=== PATIENT | female | born 1935 | race Caucasian/White ===

== ENCOUNTER 2018-11-17 12:22 | Inpatient (IN) | payer MEDICARE, MEDICAID ==
[~2018-11-17] VITALS: Ht 162.6 cm; Wt 85.0 kg
[2018-11-17 13:17] LABS: BASOPHILS # (AUTO) 0.1 X10'3 (0-0.2); BASOPHILS % (AUTO) 0.4 % (0-1); EOSINOPHILS % (AUTO) 0.1 % (0-6); HEMATOCRIT 35.5 % (35.0-45.0); HEMOGLOBIN 11.6 g/dl (12.0-16.0); LYMPHOCYTES # (AUTO) 1.3 X10'3 (1.1-4.8); LYMPHOCYTES % (AUTO) 5.6 % (21-51); MEAN CORPUSCULAR HEMOGLOBIN 26.7 PG (27.0-31.0); MEAN CORPUSCULAR HGB CONC 32.8 g/dL (33.0-36.5); MEAN CORPUSCULAR VOLUME 81.4 FL (78-98); MEAN PLATELET VOLUME 6.5 FL (7.4-10.4); MONOCYTES # (AUTO) 1.2 X10'3 (0-0.9); MONOCYTES % (AUTO) 5.1 % (2-12); NEUTROPHILS # (AUTO) 20.9 X10'3 (1.8-7.7); NEUTROPHILS % (AUTO) 88.8 % (42-75); PLATELET COUNT 445 X10'3 (140-440); RED BLOOD COUNT 4.36 X10'6 (4.20-5.60); RED CELL DISTRIBUTION WIDTH 15.6 % (11.5-14.5); WHITE BLOOD COUNT 23.5 X10'3 (4.5-11.0)
[2018-11-17] MEDS ORDERED: levoFLOXACIN-Levaquin 500mg/D5 100 ML IV ONE (13:30)
[2018-11-17 13:37] LABS: ALANINE AMINOTRANSFERASE 20 U/L (12-78); ALBUMIN 2.7 G/DL (3.4-5.0); ALBUMIN/GLOBULIN RATIO 0.7 (1.1-1.5); ALKALINE PHOSPHATASE 69 IU/L (46-116); ANION GAP 5 (8-16); ASPARTATE AMINO TRANSFERASE 10 U/L (10-37); BILIRUBIN,TOTAL 0.5 MG/DL (0.1-1.0); BLOOD UREA NITROGEN 12 MG/DL (7-18); CALCIUM 9.3 MG/DL (8.5-10.1); CHLORIDE 96 MMOL/L (99-107); GLUCOSE 259 MG/DL (70-104); POTASSIUM 4.1 MMOL/L (3.5-5.1); SODIUM 133 MMOL/L (135-145); TOTAL CARBON DIOXIDE 32.2 MMOL/L (24-32); TOTAL PROTEIN 6.8 G/DL (6.4-8.2); eGFR > 90 ML/MIN
[2018-11-17 13:39] LABS: INR 1.1 INR; PARTIAL THROMBOPLASTIN TIME 36 SECONDS (22-32)
[2018-11-17] MEDS ORDERED: HYDR-3972 PO (14:07)
[2018-11-17] MEDS ORDERED: ALBU2.5V10 NEB (14:07)
[2018-11-17] MEDS ORDERED: METF-950 PO (14:07)
[2018-11-17] MEDS ORDERED: RIVA20TA PO (14:07)
[2018-11-17] MEDS ORDERED: SPIR50TA5 PO (14:07)
[2018-11-17] MEDS ORDERED: PRE5T PO (14:07)
[2018-11-17] MEDS ORDERED: CARV6.253 PO (14:07)
[2018-11-17] MEDS ORDERED: FURO20TA4 PO (14:07)
[2018-11-17] MEDS ORDERED: FURO40TA4 PO (14:07)
[2018-11-17] MEDS ORDERED: ARFO15VI NEB (14:07)
[2018-11-17 14:31] LABS: TOTAL CELLS COUNTED 100
[2018-11-17] MEDS ORDERED: magnesium 4gm in 100ml NS 100 ML IV PRN (14:55)
[2018-11-17] MEDS ORDERED: magnesium Cl slow-release 64mg tablet PO PRN (14:55)
[2018-11-17] MEDS ORDERED: ipratropium/albuterol 3ml nebule NEB PRN (14:55)
[2018-11-17] MEDS ORDERED: magnesium 2GM in 50ml NS 50 ML IV PRN (14:55)
[2018-11-17] MEDS ORDERED: potassium Cl 40MEQ/NS 500ml 500 ML IV PRN ×2 (14:55)
[2018-11-17] MEDS ORDERED: ondansetron/PF 4mg/2ml inj IV PRN (14:55)
[2018-11-17] MEDS ORDERED: acetaminophen 325mg tablet PO PRN (14:55)
[2018-11-17] MEDS ORDERED: potassium Cl 20 mEq SR tablet PO PRN ×2 (14:55)
[2018-11-17 16:05] LABS: PLATELET ESTIMATE INCREASED
--- NOTE | 2018-11-17 18:35 | NUR ---
report given to the night MILADY PICHARDO
[2018-11-17 19:00] VITALS: BP 111/54
[2018-11-17] MEDS: vancomycin inj 1,250 MG in NS 250ml IV soln IV SCH (19:06)
[2018-11-17] MEDS ORDERED: heparin, porcine 5000 units/ml vial SQ SCH (20:00)
[2018-11-17] MEDS ORDERED: vancomycin/NS 1 GM ADD-VANTAGE 250 ML IV SCH (20:00)
[2018-11-17] MEDS: carvedilol 6.25mg tablet PO SCH (20:06)
[2018-11-17] MEDS: rivaroxaban 20mg tablet PO SCH (20:27)
[2018-11-17] MEDS: ipratropium/albuterol 3ml nebule NEB SCH (21:19)
[2018-11-17 23:00] VITALS: BP 114/59
[2018-11-17 23:41] LABS: HEMOGLOBIN A1C 7.4 % (4.5-6.2)
[2018-11-18 03:00] VITALS: BP 110/63
[2018-11-18] MEDS: ipratropium/albuterol 3ml nebule NEB SCH ×4 (03:07→20:00)
[2018-11-18] MEDS: vancomycin inj 1,250 MG in NS 250ml IV soln IV SCH ×2 (04:33→16:40)
[2018-11-18 05:40] LABS: BASOPHILS % (AUTO) 0.1 % (0-1); EOSINOPHILS % (AUTO) 0.1 % (0-6); HEMATOCRIT 33.4 % (35.0-45.0); HEMOGLOBIN 10.8 g/dl (12.0-16.0); LYMPHOCYTES # (AUTO) 2.4 X10'3 (1.1-4.8); LYMPHOCYTES % (AUTO) 11.3 % (21-51); MEAN CORPUSCULAR HEMOGLOBIN 26.7 PG (27.0-31.0); MEAN CORPUSCULAR HGB CONC 32.4 g/dL (33.0-36.5); MEAN CORPUSCULAR VOLUME 82.5 FL (78-98); MEAN PLATELET VOLUME 6.7 FL (7.4-10.4); MONOCYTES # (AUTO) 2.3 X10'3 (0-0.9); MONOCYTES % (AUTO) 10.7 % (2-12); NEUTROPHILS # (AUTO) 16.3 X10'3 (1.8-7.7); NEUTROPHILS % (AUTO) 77.8 % (42-75); PLATELET COUNT 449 X10'3 (140-440); RED BLOOD COUNT 4.05 X10'6 (4.20-5.60); RED CELL DISTRIBUTION WIDTH 15.6 % (11.5-14.5)
[2018-11-18 05:54] LABS: CHLORIDE 100 MMOL/L (99-107); GLUCOSE 219 MG/DL (70-104); POTASSIUM 3.8 MMOL/L (3.5-5.1); SODIUM 136 MMOL/L (135-145); TOTAL CARBON DIOXIDE 33.6 MMOL/L (24-32)
[2018-11-18 05:55] LABS: ALBUMIN 2.3 G/DL (3.4-5.0); ANION GAP 2 (8-16); BLOOD UREA NITROGEN 11 MG/DL (7-18); BUN/CREATININE RATIO 18.3 (6.6-38.0); CALCIUM 9.1 MG/DL (8.5-10.1); MAGNESIUM 1.6 MG/DL (1.5-2.4); eGFR > 90 ML/MIN
[2018-11-18 06:00] VITALS: BP 122/49
--- NOTE | 2018-11-18 06:16 | NUR ---
Problems reprioritized. Patient report given, questions answered & plan of care reviewed with AM nurse. Addendum: 11/18/18 at 0617 by Blank Hart RN Amended: Links added.
[2018-11-18 07:02] LABS: PLATELET ESTIMATE INCREASED; TOTAL CELLS COUNTED 100
[2018-11-18 07:03] LABS: TOXIC GRANULATION 1+
[2018-11-18] MEDS: spironolactone 50 MG tablet PO SCH (07:58)
[2018-11-18] MEDS: methylPREDNISolone sod succ/PF 40mg inj. IV SCH (07:59)
[2018-11-18] MEDS: pantoprazole 40mg Tablet.DR PO SCH (07:59)
[2018-11-18] MEDS: K and/or MAG REPLACEMENT MC SCH (08:00)
[2018-11-18] MEDS: furosemide 40mg tablet PO SCH (08:01)
[2018-11-18] MEDS: carvedilol 6.25mg tablet PO SCH ×2 (08:01→17:26)
--- NOTE | 2018-11-18 09:41 | NUR ---
PAGER ID: [phone] MESSAGE: [id number] Cyndee Kang Pt has history of diabetes, has met protocol, but hyper/hypoglycemic protocol not yet ordered. Would you like it ordered? Thank you, Sharron #[phone]
[2018-11-18 11:00] VITALS: BP 112/59
[2018-11-18] MEDS ORDERED: MESSAGE TO PHARMACY PO ONE (11:05)
[2018-11-18] MEDS ORDERED: dextrose 50%-water 50ml dispensing syringe IV PRN ×2 (11:05)
[2018-11-18] MEDS ORDERED: glucagon, human recombinant 1mg kit SUBCUT PRN (11:05)
[2018-11-18] MEDS ORDERED: dextrose ORAL solution 15 GM/59 ML bottle PO PRN ×2 (11:05)
[2018-11-18] MEDS: levoFLOXACIN 750MG TABLET PO SCH (11:27)
[2018-11-18] MEDS: normal saline 1000ml 1,000 ML IV SCH (11:27)
[2018-11-18] MEDS: insulin Lispro (HumaLOG) vial - multi-dose SQ SCH ×3 (13:20→21:40)
--- NOTE | 2018-11-18 13:43 | NUR ---
DM consult, A1c 7.4, patient and her daughter met at bedside and given written DM education handout with verbal review and referral to wednesday outpatient DM education class. Daughter helps care for patient, helps prepare meals and ensuring medication is taken at home. Obtained food preferences including chopping all foods d/t some chewing difficulty with dentures, will add extra gravies to keep moist. Other preferences taken include Surinamese Yogurt with breakfast and Lunch as she eats this at home. Will continue to follow. Addendum: 11/18/18 at [address] Amended: Links added.
[2018-11-18 15:00] VITALS: BP 115/49
--- NOTE | 2018-11-18 17:04 | NUR ---
PAGER ID: [phone] MESSAGE: [id number] Taylor Austin Pt tele order is going to in 24 hours, would you like me to renew it? Thank you, Sharron #[phone]
--- NOTE | 2018-11-18 17:24 | NUR ---
Patient in room PCU 3014. I have received report from MILADY Mcdermott and had the opportunity to ask questions and assume patient care.
[2018-11-18] MEDS: rivaroxaban 20mg tablet PO SCH (17:26)
--- NOTE | 2018-11-18 17:35 | NUR ---
Problems reprioritized. Patient report given, questions answered & plan of care reviewed with Britany HENNING.
[2018-11-18 17:49] LABS: CLARITY,URINE CLEAR (Clear); COLOR,URINE YELLOW (Yellow); GLUCOSE, URINE 250 mg/dl (Neg); KETONES,URINE TRACE mg/dl (Neg); LEUKOCYTE ESTERASE ,URINE NEGATIVE (Neg); NITRITES, URINE NEGATIVE (Neg); OCCULT BLOOD,URINE SMALL (Neg); PROTEIN,URINE NEGATIVE (Neg); UROBILINOGEN,URINE 0.2 E.U/dL (0.2-1.0)
[2018-11-18 17:54] LABS: UA COLLECTION TYPE CLN CATCH MIDSTREAM
[2018-11-18 17:55] LABS: BACTERIA,URINE NONE SEEN /HPF (Neg); MUCUS STRANDS FEW /LPF (Neg); RBC,URINE 0-2 /HPF (0-2); SQUAMOUS EPITHELIAL CELL,UR FEW /LPF (FEW); WBC,URINE NONE SEEN /HPF (0-4)
[2018-11-18 18:00] VITALS: BP 128/52
[2018-11-18] MEDS: lactobacillus rhamnosus 10,000 MMU CELLS/CAPSULE PO SCH (19:17)
[2018-11-18] MEDS: insulin glargine (Lantus) pen - multi-dose SQ SCH (21:39)
[2018-11-18 23:00] VITALS: BP 118/70
[2018-11-19] VITALS (7 sets, daily range): BP systolic 115–136; BP diastolic 48–77
[2018-11-19] MEDS: normal saline 1000ml 1,000 ML IV SCH ×2 (00:25→07:34)
[2018-11-19] MEDS: ipratropium/albuterol 3ml nebule NEB SCH ×4 (02:39→20:05)
[2018-11-19] MEDS ORDERED: VANCOMYCIN LEVEL IV ONE (03:30)
[2018-11-19 04:23] LABS: BASOPHILS % (AUTO) 0.2 % (0-1); EOSINOPHILS % (AUTO) 0 % (0-6); HEMATOCRIT 29.4 % (35.0-45.0); HEMOGLOBIN 9.6 g/dl (12.0-16.0); LYMPHOCYTES # (AUTO) 2.1 X10'3 (1.1-4.8); LYMPHOCYTES % (AUTO) 11.9 % (21-51); MEAN CORPUSCULAR HGB CONC 32.7 g/dL (33.0-36.5); MEAN CORPUSCULAR VOLUME 82.8 FL (78-98); MEAN PLATELET VOLUME 6.7 FL (7.4-10.4); MONOCYTES # (AUTO) 1.6 X10'3 (0-0.9); MONOCYTES % (AUTO) 9.5 % (2-12); NEUTROPHILS # (AUTO) 13.6 X10'3 (1.8-7.7); NEUTROPHILS % (AUTO) 78.4 % (42-75); PLATELET COUNT 453 X10'3 (140-440); RED BLOOD COUNT 3.55 X10'6 (4.20-5.60); RED CELL DISTRIBUTION WIDTH 15.9 % (11.5-14.5); WHITE BLOOD COUNT 17.3 X10'3 (4.5-11.0)
[2018-11-19] MEDS: vancomycin inj 1,250 MG in NS 250ml IV soln IV SCH (04:25)
[2018-11-19 04:37] LABS: ALBUMIN 2.1 G/DL (3.4-5.0); ANION GAP 6 (8-16); BLOOD UREA NITROGEN 8 MG/DL (7-18); BUN/CREATININE RATIO 14.3 (6.6-38.0); CALCIUM 8.4 MG/DL (8.5-10.1); CHLORIDE 104 MMOL/L (99-107); CREATININE 0.56 MG/DL (0.40-0.90); GLUCOSE 175 MG/DL (70-104); MAGNESIUM 1.8 MG/DL (1.5-2.4); POTASSIUM 3.6 MMOL/L (3.5-5.1); SODIUM 141 MMOL/L (135-145); TOTAL CARBON DIOXIDE 31.2 MMOL/L (24-32); VANCOMYCIN,TROUGH 11.2 UG/ML (6.0-14.0); eGFR > 90 ML/MIN
[2018-11-19] MEDS: HYDROcodone/acetaminophen 10/325mg tab PO PRN (05:05)
--- NOTE | 2018-11-19 06:11 | NUR ---
Problems reprioritized. Patient report given, questions answered & plan of care reviewed with MILADY Mcdermott.
--- NOTE | 2018-11-19 06:42 | NUR ---
Patient in room PCU 3014. I have received report from Britany HENNING and had the opportunity to ask questions and assume patient care.
[2018-11-19] MEDS: spironolactone 50 MG tablet PO SCH (07:33)
[2018-11-19 07:34] LABS: TOTAL CELLS COUNTED 100
[2018-11-19] MEDS: methylPREDNISolone sod succ/PF 40mg inj. IV SCH (07:34)
[2018-11-19] MEDS: carvedilol 6.25mg tablet PO SCH ×2 (07:34→17:19)
[2018-11-19] MEDS: lactobacillus rhamnosus 10,000 MMU CELLS/CAPSULE PO SCH ×2 (07:34→20:32)
[2018-11-19] MEDS: furosemide 40mg tablet PO SCH (07:34)
[2018-11-19] MEDS: pantoprazole 40mg Tablet.DR PO SCH (07:34)
[2018-11-19 07:35] LABS: PLATELET ESTIMATE INCREASED
[2018-11-19] MEDS: K and/or MAG REPLACEMENT MC SCH (08:00)
[2018-11-19] MEDS: levoFLOXACIN 750MG TABLET PO SCH (11:03)
[2018-11-19] MEDS: insulin Lispro (HumaLOG) vial - multi-dose SQ SCH ×2 (13:24→19:11)
--- NOTE | 2018-11-19 15:59 | NUR ---
PAGER ID: [phone] MESSAGE: [id number] Cyndee Kang Would you like to continue NS at 75 mL/hr,? BP is 119/54, urine output is good. Bilateral lower extremity 2+ pitting edema. Thank you # [phone]
[2018-11-19] MEDS: rivaroxaban 20mg tablet PO SCH (17:19)
--- NOTE | 2018-11-19 17:51 | NUR ---
Orientee documentation: I have reviewed and agree with interventions, assessments performed and documented by Chely HENNING . Orientee Medication Administration: For this medication-pass time frame, medications were reviewed, dispensed, administered and documented per hospital policy by Chely HENNING .
--- NOTE | 2018-11-19 18:17 | NUR ---
Problems reprioritized. Patient report given, questions answered & plan of care reviewed with MILADY Fatima.
--- NOTE | 2018-11-19 18:30 | NUR ---
PATIENT REPORT RECEIVED FROM CONSTANTIN HENNING.
[2018-11-19] MEDS: insulin glargine (Lantus) pen - multi-dose SQ SCH (21:29)
[2018-11-20 02:00] VITALS: BP 127/64
[2018-11-20] MEDS: ipratropium/albuterol 3ml nebule NEB SCH ×4 (03:01→20:46)
[2018-11-20 05:41] LABS: BASOPHILS % (AUTO) 0.1 % (0-1); EOSINOPHILS % (AUTO) 0.1 % (0-6); HEMATOCRIT 34.2 % (35.0-45.0); LYMPHOCYTES # (AUTO) 2.9 X10'3 (1.1-4.8); LYMPHOCYTES % (AUTO) 15.3 % (21-51); MEAN CORPUSCULAR HEMOGLOBIN 26.8 PG (27.0-31.0); MEAN CORPUSCULAR HGB CONC 32.2 g/dL (33.0-36.5); MEAN CORPUSCULAR VOLUME 83.2 FL (78-98); MEAN PLATELET VOLUME 6.7 FL (7.4-10.4); MONOCYTES # (AUTO) 1.6 X10'3 (0-0.9); MONOCYTES % (AUTO) 8.8 % (2-12); NEUTROPHILS # (AUTO) 14.2 X10'3 (1.8-7.7); NEUTROPHILS % (AUTO) 75.7 % (42-75); PLATELET COUNT 535 X10'3 (140-440); RED BLOOD COUNT 4.11 X10'6 (4.20-5.60); RED CELL DISTRIBUTION WIDTH 16.2 % (11.5-14.5); WHITE BLOOD COUNT 18.7 X10'3 (4.5-11.0)
[2018-11-20 06:00] VITALS: BP 130/72
[2018-11-20 06:06] LABS: ALBUMIN 2.5 G/DL (3.4-5.0); ANION GAP 5 (8-16); BLOOD UREA NITROGEN 11 MG/DL (7-18); CALCIUM 9.3 MG/DL (8.5-10.1); CHLORIDE 102 MMOL/L (99-107); CREATININE 0.55 MG/DL (0.40-0.90); GLUCOSE 127 MG/DL (70-104); MAGNESIUM 1.9 MG/DL (1.5-2.4); POTASSIUM 3.8 MMOL/L (3.5-5.1); SODIUM 139 MMOL/L (135-145); TOTAL CARBON DIOXIDE 32.4 MMOL/L (24-32); eGFR > 90 ML/MIN
[2018-11-20 06:07] LABS: FERRITIN 345 NG/ML (8-252)
--- NOTE | 2018-11-20 06:09 | NUR ---
PATIENT REPORT GIVEN TO KIRK HENNING.
[2018-11-20 06:25] LABS: % IRON SATURATION 17 % (11-46); IRON 37 UG/DL (49-151); TOTAL IRON BINDING CAPACITY 222 UG/DL (259-388)
--- NOTE | 2018-11-20 06:30 | NUR ---
Patient in room PCU 3014. I have received report from Trena HENNING and had the opportunity to ask questions and assume patient care.
[2018-11-20] MEDS: pantoprazole 40mg Tablet.DR PO SCH (07:23)
[2018-11-20] MEDS: methylPREDNISolone sod succ/PF 40mg inj. IV SCH (07:23)
[2018-11-20] MEDS: spironolactone 50 MG tablet PO SCH (07:23)
[2018-11-20] MEDS: carvedilol 6.25mg tablet PO SCH ×2 (07:23→16:53)
[2018-11-20] MEDS: lactobacillus rhamnosus 10,000 MMU CELLS/CAPSULE PO SCH ×2 (07:23→22:11)
[2018-11-20] MEDS: furosemide 40mg tablet PO SCH (07:23)
[2018-11-20] MEDS: K and/or MAG REPLACEMENT MC SCH (07:25)
[2018-11-20] MEDS: insulin Lispro (HumaLOG) vial - multi-dose SQ SCH ×3 (08:29→19:27)
[2018-11-20] MEDS: levoFLOXACIN 750MG TABLET PO SCH (10:47)
[2018-11-20 11:00] VITALS: BP 117/50
[2018-11-20] MEDS: HYDROcodone/acetaminophen 10/325mg tab PO PRN (13:01)
--- NOTE | 2018-11-20 13:14 | NUR ---
Medicated with [place] for back pain.
[2018-11-20 15:00] VITALS: BP 119/72
[2018-11-20] MEDS: rivaroxaban 20mg tablet PO SCH (16:53)
--- NOTE | 2018-11-20 18:12 | NUR ---
Problems reprioritized. Patient report given, questions answered & plan of care reviewed with Nhi HENNING. Addendum: 11/20/18 at 1813 by Crystal Aguilera RN Amended: Links added.
[2018-11-20 19:00] VITALS: BP 120/54
--- NOTE | 2018-11-20 19:00 | NUR ---
pt sitting in w/c; edema to lower legs noted; pt reports she sleeps in chair at home; pt declines the use of a recliner chair to keep legs elevated or to get into bed Addendum: 11/21/18 at 0026 by Sheba Powell RN Amended: Links added.
[2018-11-20 22:00] VITALS: BP 120/56
[2018-11-20] MEDS: insulin glargine (Lantus) pen - multi-dose SQ SCH (22:20)
[2018-11-21 02:00] VITALS: BP 128/55
[2018-11-21] MEDS: ipratropium/albuterol 3ml nebule NEB SCH ×4 (02:00→20:07)
[2018-11-21] MEDS: normal saline 1000ml 1,000 ML IV SCH (02:08)
[2018-11-21] MEDS ORDERED: VANCOMYCIN LEVEL IV NR ×2 (03:30→15:30)
--- NOTE | 2018-11-21 04:35 | NUR ---
attempts made by two nurses (x4 sticks) to do vanco lab; instructed by Ross, pharmacist, to hang Vanco IV if lab not able to do the lab draw by 0430 & the plan will be to retime the vanco T...Ross notified
[2018-11-21 06:04] LABS: BASOPHILS % (AUTO) 0.1 % (0-1); EOSINOPHILS % (AUTO) 0.2 % (0-6); HEMOGLOBIN 11.1 g/dl (12.0-16.0); LYMPHOCYTES % (AUTO) 13.7 % (21-51); MEAN CORPUSCULAR HGB CONC 32.7 g/dL (33.0-36.5); MEAN CORPUSCULAR VOLUME 82.6 FL (78-98); MEAN PLATELET VOLUME 6.5 FL (7.4-10.4); MONOCYTES # (AUTO) 2.1 X10'3 (0-0.9); MONOCYTES % (AUTO) 9.7 % (2-12); NEUTROPHILS # (AUTO) 16.5 X10'3 (1.8-7.7); NEUTROPHILS % (AUTO) 76.3 % (42-75); PLATELET COUNT 537 X10'3 (140-440); RED BLOOD COUNT 4.11 X10'6 (4.20-5.60); WHITE BLOOD COUNT 21.7 X10'3 (4.5-11.0)
[2018-11-21 06:30] VITALS: BP 125/62
--- NOTE | 2018-11-21 06:30 | NUR ---
report given to MILADY Luna
[2018-11-21 06:34] LABS: ALBUMIN 2.5 G/DL (3.4-5.0); ANION GAP 5 (8-16); BLOOD UREA NITROGEN 13 MG/DL (7-18); BUN/CREATININE RATIO 21.7 (6.6-38.0); CALCIUM 9.4 MG/DL (8.5-10.1); CHLORIDE 100 MMOL/L (99-107); GLUCOSE 96 MG/DL (70-104); POTASSIUM 3.7 MMOL/L (3.5-5.1); SODIUM 139 MMOL/L (135-145); TOTAL CARBON DIOXIDE 34.1 MMOL/L (24-32); eGFR > 90 ML/MIN
--- NOTE | 2018-11-21 06:39 | NUR ---
Patient in room PCU 3014. I have received report from Nhi RN and had the opportunity to ask questions and assume patient care.
[2018-11-21] MEDS: methylPREDNISolone sod succ/PF 40mg inj. IV SCH (07:30)
[2018-11-21] MEDS: furosemide 40mg tablet PO SCH (07:30)
[2018-11-21] MEDS: pantoprazole 40mg Tablet.DR PO SCH (07:31)
[2018-11-21] MEDS: lactobacillus rhamnosus 10,000 MMU CELLS/CAPSULE PO SCH ×2 (07:31→21:18)
[2018-11-21] MEDS: carvedilol 6.25mg tablet PO SCH ×2 (07:31→17:29)
[2018-11-21] MEDS: spironolactone 50 MG tablet PO SCH (07:31)
[2018-11-21 07:46] LABS: TOTAL CELLS COUNTED 100
[2018-11-21 07:48] LABS: ANISOCYTOSIS 1+; PLATELET ESTIMATE INCREASED
[2018-11-21] MEDS: K and/or MAG REPLACEMENT MC SCH (08:00)
[2018-11-21] MEDS: piperacillin/tazo 3.375gm/50ml 50 ML IV SCH ×2 (09:36→23:26)
[2018-11-21 11:00] VITALS: BP 116/51
[2018-11-21] MEDS: levoFLOXACIN 750MG TABLET PO SCH (11:56)
[2018-11-21] MEDS: insulin Lispro (HumaLOG) vial - multi-dose SQ SCH ×2 (13:21→18:58)
[2018-11-21] MEDS: HYDROcodone/acetaminophen 10/325mg tab PO PRN (13:23)
[2018-11-21 15:00] VITALS: BP 114/52
--- NOTE | 2018-11-21 15:50 | NUR ---
Paged Dr Matos regarding critical vanco trough PAGER ID: [phone] MESSAGE: Cheryl [phone]. RE Agustin Kang [id number]. Lab called to report critical vanco level of 22.3.
[2018-11-21] MEDS: rivaroxaban 20mg tablet PO SCH (17:29)
[2018-11-21] MEDS: vancomycin inj 1,250 MG in NS 250ml IV soln IV SCH (17:30)
[2018-11-21 18:00] VITALS: BP 114/58
--- NOTE | 2018-11-21 18:25 | NUR ---
Problems reprioritized. Patient report given, questions answered & plan of care reviewed with Tracy HENNING.
--- NOTE | 2018-11-21 18:31 | NUR ---
Patient in room PCU 3014. I have received report from Cheryl and had the opportunity to ask questions and assume patient care.
[2018-11-21 22:00] VITALS: BP 126/68
[2018-11-21] MEDS: insulin glargine (Lantus) pen - multi-dose SQ SCH (22:14)
--- NOTE | 2018-11-21 22:46 | NUR ---
IV in left forearm was leaking. DC'd 11/21. inserted 22 g right wrist 11/21
[2018-11-22 02:00] VITALS: BP 129/43
[2018-11-22] MEDS: ipratropium/albuterol 3ml nebule NEB SCH ×4 (03:30→20:11)
[2018-11-22] MEDS: vancomycin inj 1,250 MG in NS 250ml IV soln IV SCH ×2 (04:26→19:04)
[2018-11-22 05:57] LABS: BASOPHILS % (AUTO) 0.1 % (0-1); EOSINOPHILS % (AUTO) 0.2 % (0-6); HEMATOCRIT 35.9 % (35.0-45.0); HEMOGLOBIN 11.5 g/dl (12.0-16.0); LYMPHOCYTES # (AUTO) 3.1 X10'3 (1.1-4.8); LYMPHOCYTES % (AUTO) 13.7 % (21-51); MEAN CORPUSCULAR HEMOGLOBIN 26.6 PG (27.0-31.0); MEAN CORPUSCULAR HGB CONC 31.9 g/dL (33.0-36.5); MEAN CORPUSCULAR VOLUME 83.1 FL (78-98); MEAN PLATELET VOLUME 6.6 FL (7.4-10.4); MONOCYTES # (AUTO) 2.1 X10'3 (0-0.9); MONOCYTES % (AUTO) 9.3 % (2-12); NEUTROPHILS # (AUTO) 17.4 X10'3 (1.8-7.7); NEUTROPHILS % (AUTO) 76.7 % (42-75); PLATELET COUNT 531 X10'3 (140-440); RED BLOOD COUNT 4.31 X10'6 (4.20-5.60); RED CELL DISTRIBUTION WIDTH 16.1 % (11.5-14.5); WHITE BLOOD COUNT 22.7 X10'3 (4.5-11.0)
[2018-11-22 06:05] LABS: ALBUMIN 2.6 G/DL (3.4-5.0); ANION GAP 4 (8-16); BLOOD UREA NITROGEN 14 MG/DL (7-18); BUN/CREATININE RATIO 19.7 (6.6-38.0); CALCIUM 9.5 MG/DL (8.5-10.1); CHLORIDE 99 MMOL/L (99-107); CREATININE 0.71 MG/DL (0.40-0.90); GLUCOSE 108 MG/DL (70-104); POTASSIUM 3.9 MMOL/L (3.5-5.1); SODIUM 139 MMOL/L (135-145); TOTAL CARBON DIOXIDE 36.3 MMOL/L (24-32); eGFR 78 ML/MIN
--- NOTE | 2018-11-22 06:14 | NUR ---
Problems reprioritized. Patient report given, questions answered & plan of care reviewed with Cheryl.
--- NOTE | 2018-11-22 06:24 | NUR ---
Patient in room PCU 3014. I have received report from Tracy HENNING and had the opportunity to ask questions and assume patient care.
[2018-11-22 06:30] VITALS: BP 116/60
[2018-11-22] MEDS: carvedilol 6.25mg tablet PO SCH ×2 (07:18→16:34)
[2018-11-22] MEDS: furosemide 40mg tablet PO SCH (07:18)
[2018-11-22] MEDS: pantoprazole 40mg Tablet.DR PO SCH (07:18)
[2018-11-22] MEDS: methylPREDNISolone sod succ/PF 40mg inj. IV SCH (07:18)
[2018-11-22] MEDS: spironolactone 50 MG tablet PO SCH (07:18)
[2018-11-22] MEDS: lactobacillus rhamnosus 10,000 MMU CELLS/CAPSULE PO SCH ×2 (07:18→19:04)
[2018-11-22] MEDS: piperacillin/tazo 3.375gm/50ml 50 ML IV SCH ×3 (07:19→23:41)
[2018-11-22 07:27] LABS: ANISOCYTOSIS 1+; PLATELET ESTIMATE INCREASED; TOTAL CELLS COUNTED 100
[2018-11-22] MEDS: K and/or MAG REPLACEMENT MC SCH (07:30)
[2018-11-22] MEDS: levoFLOXACIN 750MG TABLET PO SCH (10:46)
[2018-11-22 11:00] VITALS: BP 115/71
[2018-11-22] MEDS: insulin Lispro (HumaLOG) vial - multi-dose SQ SCH ×2 (13:40→19:01)
[2018-11-22 15:00] VITALS: BP 132/57
[2018-11-22] MEDS: rivaroxaban 20mg tablet PO SCH (16:35)
[2018-11-22 18:00] VITALS: BP 123/56
--- NOTE | 2018-11-22 18:18 | NUR ---
Initial: Pt admit w/ RLL PNA possible aspiration per MD note. AOx1 w/ possible dementia per MD note. LBM 11/20. Pt PO 75-100% meals meeting needs. Will continue to monitor. Rec: 1. continue carb controlled/heart healthy meals 2. wt per rx Addendum: 11/22/18 at [address] Amended: Links added.
--- NOTE | 2018-11-22 18:29 | NUR ---
Problems reprioritized. Patient report given with Vale HENNING questions answered & plan of care reviewed with .
[2018-11-22] MEDS: HYDROcodone/acetaminophen 10/325mg tab PO PRN (19:47)
[2018-11-22] MEDS: insulin glargine (Lantus) pen - multi-dose SQ SCH (21:22)
[2018-11-22 23:00] VITALS: BP 149/68
[2018-11-23 03:00] VITALS: BP 134/60
[2018-11-23] MEDS: ipratropium/albuterol 3ml nebule NEB SCH ×3 (03:21→20:28)
[2018-11-23] MEDS: normal saline 1000ml 1,000 ML IV SCH (03:22)
[2018-11-23] MEDS ORDERED: VANCOMYCIN LEVEL IV NR (04:30)
[2018-11-23] MEDS: vancomycin inj 1,250 MG in NS 250ml IV soln IV SCH (05:13)
[2018-11-23 06:29] LABS: MAGNESIUM 2.1 MG/DL (1.5-2.4)
[2018-11-23 06:31] LABS: VANCOMYCIN,TROUGH 22.8 UG/ML (6.0-14.0)
[2018-11-23 07:02] VITALS: BP 101/55
[2018-11-23] MEDS: K and/or MAG REPLACEMENT MC SCH (08:00)
[2018-11-23] MEDS: piperacillin/tazo 3.375gm/50ml 50 ML IV SCH ×2 (08:15→16:32)
[2018-11-23] MEDS: furosemide 40mg tablet PO SCH (08:16)
[2018-11-23] MEDS: carvedilol 6.25mg tablet PO SCH ×2 (08:16→21:19)
[2018-11-23] MEDS: pantoprazole 40mg Tablet.DR PO SCH (08:16)
[2018-11-23] MEDS: lactobacillus rhamnosus 10,000 MMU CELLS/CAPSULE PO SCH ×2 (08:16→21:20)
[2018-11-23] MEDS: methylPREDNISolone sod succ/PF 40mg inj. IV SCH (08:16)
[2018-11-23] MEDS: spironolactone 50 MG tablet PO SCH (08:16)
[2018-11-23] MEDS: insulin Lispro (HumaLOG) vial - multi-dose SQ SCH ×3 (10:03→19:03)
[2018-11-23 11:00] VITALS: BP 109/43
[2018-11-23] MEDS: levoFLOXACIN 750MG TABLET PO SCH (11:30)
[2018-11-23 15:00] VITALS: BP 115/42
[2018-11-23 15:03] LABS: OCCULT BLOOD STOOL NEGATIVE (Neg)
--- NOTE | 2018-11-23 15:12 | NUR ---
PAGER ID: [phone] MESSAGE: Room 3014A Pearl. Your note reads code status FULL. order status DNR. [facility] 6219
[2018-11-23] MEDS: rivaroxaban 20mg tablet PO SCH (16:43)
[2018-11-23 18:00] VITALS: BP 113/47
--- NOTE | 2018-11-23 18:15 | NUR ---
Problems reprioritized. Patient report given, questions answered & plan of care reviewed with Vale HENNING.
[2018-11-23] MEDS: vancomycin/NS 1 GM ADD-VANTAGE 250 ML IV SCH (19:02)
[2018-11-23] MEDS: furosemide 40mg/4ml inj IV SCH (21:20)
[2018-11-23] MEDS: HYDROcodone/acetaminophen 10/325mg tab PO PRN (21:20)
[2018-11-23] MEDS: insulin glargine (Lantus) pen - multi-dose SQ SCH (21:23)
[2018-11-23 22:00] VITALS: BP 121/55
[2018-11-24] VITALS (7 sets, daily range): BP systolic 99–139; BP diastolic 42–65
[2018-11-24] MEDS: piperacillin/tazo 3.375gm/50ml 50 ML IV SCH ×2 (00:20→08:18)
[2018-11-24] MEDS: ipratropium/albuterol 3ml nebule NEB SCH ×4 (02:00→19:50)
[2018-11-24] MEDS: vancomycin/NS 1 GM ADD-VANTAGE 250 ML IV SCH (05:05)
[2018-11-24 05:47] LABS: BASOPHILS % (AUTO) 0.1 % (0-1); EOSINOPHILS # (AUTO) 0.1 X10'3 (0-0.9); EOSINOPHILS % (AUTO) 0.3 % (0-6); HEMATOCRIT 35.8 % (35.0-45.0); HEMOGLOBIN 11.7 g/dl (12.0-16.0); LYMPHOCYTES # (AUTO) 3.5 X10'3 (1.1-4.8); LYMPHOCYTES % (AUTO) 14.6 % (21-51); MEAN CORPUSCULAR HEMOGLOBIN 26.8 PG (27.0-31.0); MEAN CORPUSCULAR HGB CONC 32.5 g/dL (33.0-36.5); MEAN CORPUSCULAR VOLUME 82.4 FL (78-98); MEAN PLATELET VOLUME 6.6 FL (7.4-10.4); MONOCYTES # (AUTO) 1.7 X10'3 (0-0.9); MONOCYTES % (AUTO) 6.8 % (2-12); NEUTROPHILS % (AUTO) 78.2 % (42-75); PLATELET COUNT 548 X10'3 (140-440); RED BLOOD COUNT 4.35 X10'6 (4.20-5.60); RED CELL DISTRIBUTION WIDTH 16.2 % (11.5-14.5); WHITE BLOOD COUNT 24.3 X10'3 (4.5-11.0)
[2018-11-24 05:59] LABS: ALBUMIN 2.6 G/DL (3.4-5.0); ANION GAP 8 (8-16); BLOOD UREA NITROGEN 17 MG/DL (7-18); BUN/CREATININE RATIO 24.6 (6.6-38.0); CALCIUM 9.3 MG/DL (8.5-10.1); CHLORIDE 97 MMOL/L (99-107); CREATININE 0.69 MG/DL (0.40-0.90); GLUCOSE 88 MG/DL (70-104); MAGNESIUM 2.1 MG/DL (1.5-2.4); SODIUM 140 MMOL/L (135-145); TOTAL CARBON DIOXIDE 35.2 MMOL/L (24-32); eGFR 81 ML/MIN
[2018-11-24 06:00] LABS: POTASSIUM 3.8 MMOL/L (3.5-5.1)
--- NOTE | 2018-11-24 06:41 | NUR ---
Patient in room PCU 3014. I have received report from Vale HENNING and had the opportunity to ask questions and assume patient care. Patient sitting in WC, will continue to monitor.
[2018-11-24] MEDS: K and/or MAG REPLACEMENT MC SCH (08:00)
[2018-11-24] MEDS: pantoprazole 40mg Tablet.DR PO SCH (08:16)
[2018-11-24] MEDS: spironolactone 50 MG tablet PO SCH (08:16)
[2018-11-24] MEDS: lactobacillus rhamnosus 10,000 MMU CELLS/CAPSULE PO SCH ×2 (08:16→21:30)
[2018-11-24] MEDS: carvedilol 6.25mg tablet PO SCH ×2 (08:17→17:30)
[2018-11-24] MEDS: furosemide 40mg/4ml inj IV SCH ×2 (08:18→21:41)
[2018-11-24] MEDS ORDERED: predniSONE 20 mg tablet PO SCH (08:30)
[2018-11-24] MEDS: levoFLOXACIN 750MG TABLET PO SCH (11:11)
[2018-11-24] MEDS: insulin Lispro (HumaLOG) vial - multi-dose SQ SCH ×2 (14:16→18:42)
[2018-11-24] MEDS ORDERED: vancomycin/NS 1 GM ADD-VANTAGE 250 ML IV SCH (17:00)
[2018-11-24] MEDS: rivaroxaban 20mg tablet PO SCH (17:35)
--- NOTE | 2018-11-24 18:20 | NUR ---
Orientee documentation: I have reviewed and agree with all interventions, assessments performed and documented by Marimar HENNING. Orientee Medication Administration: For this medication-pass time frame, all medication were reviewed, dispensed, administered and documented per hospital policy by Marimar HENNING.
--- NOTE | 2018-11-24 18:30 | NUR ---
Patient in room PCU 3014. I have received report from MILADY Cronin and had the opportunity to ask questions and assume patient care.
--- NOTE | 2018-11-24 18:35 | NUR ---
Problems reprioritized. Patient report given, questions answered & plan of care reviewed with Selena HENNING.
[2018-11-24] MEDS: HYDROcodone/acetaminophen 10/325mg tab PO PRN (21:44)
[2018-11-24] MEDS: insulin glargine (Lantus) pen - multi-dose SQ SCH (21:46)
[2018-11-25] VITALS (7 sets, daily range): BP systolic 98–119; BP diastolic 39–62
[2018-11-25] MEDS: ipratropium/albuterol 3ml nebule NEB SCH ×4 (03:03→19:36)
[2018-11-25] MEDS ORDERED: VANCOMYCIN LEVEL IV ONE (04:30)
--- NOTE | 2018-11-25 06:20 | NUR ---
Problems reprioritized. Patient report given, questions answered & plan of care reviewed with MILADY corral and MILADY Lowe.
--- NOTE | 2018-11-25 06:58 | NUR ---
Patient in room PCU 3014. I have received report from Selena HENNING and had the opportunity to ask questions and assume patient care.
--- NOTE | 2018-11-25 07:48 | NUR ---
Page to Dr. Sandoval re: Room 6255O Cyndee Kang do you want labs today? Oxana [phone] awaiting call back
[2018-11-25] MEDS: K and/or MAG REPLACEMENT MC SCH (08:00)
[2018-11-25 08:57] LABS: BASOPHILS # (AUTO) 0.1 X10'3 (0-0.2); BASOPHILS % (AUTO) 0.3 % (0-1); EOSINOPHILS # (AUTO) 0.1 X10'3 (0-0.9); EOSINOPHILS % (AUTO) 0.3 % (0-6); HEMATOCRIT 34.6 % (35.0-45.0); HEMOGLOBIN 11.2 g/dl (12.0-16.0); LYMPHOCYTES # (AUTO) 3.5 X10'3 (1.1-4.8); LYMPHOCYTES % (AUTO) 14.8 % (21-51); MEAN CORPUSCULAR HEMOGLOBIN 26.3 PG (27.0-31.0); MEAN CORPUSCULAR HGB CONC 32.3 g/dL (33.0-36.5); MEAN CORPUSCULAR VOLUME 81.6 FL (78-98); MEAN PLATELET VOLUME 6.5 FL (7.4-10.4); MONOCYTES # (AUTO) 2.2 X10'3 (0-0.9); MONOCYTES % (AUTO) 9.3 % (2-12); NEUTROPHILS # (AUTO) 17.8 X10'3 (1.8-7.7); NEUTROPHILS % (AUTO) 75.3 % (42-75); PLATELET COUNT 486 X10'3 (140-440); RED BLOOD COUNT 4.23 X10'6 (4.20-5.60); RED CELL DISTRIBUTION WIDTH 15.9 % (11.5-14.5); WHITE BLOOD COUNT 23.7 X10'3 (4.5-11.0)
[2018-11-25 09:02] LABS: ALANINE AMINOTRANSFERASE 32 U/L (12-78); ALBUMIN 2.4 G/DL (3.4-5.0); ALBUMIN/GLOBULIN RATIO 0.6 (1.1-1.5); ALKALINE PHOSPHATASE 62 IU/L (46-116); ANION GAP 5 (8-16); ASPARTATE AMINO TRANSFERASE 13 U/L (10-37); BILIRUBIN,TOTAL 0.3 MG/DL (0.1-1.0); BLOOD UREA NITROGEN 21 MG/DL (7-18); BUN/CREATININE RATIO 25.6 (6.6-38.0); CALCIUM 9.6 MG/DL (8.5-10.1); CHLORIDE 97 MMOL/L (99-107); CREATININE 0.82 MG/DL (0.40-0.90); GLUCOSE 205 MG/DL (70-104); POTASSIUM 3.7 MMOL/L (3.5-5.1); SODIUM 137 MMOL/L (135-145); TOTAL CARBON DIOXIDE 34.7 MMOL/L (24-32); TOTAL PROTEIN 6.4 G/DL (6.4-8.2); eGFR 66 ML/MIN
[2018-11-25] MEDS: insulin Lispro (HumaLOG) vial - multi-dose SQ SCH ×3 (09:30→18:58)
[2018-11-25] MEDS: spironolactone 50 MG tablet PO SCH (09:31)
[2018-11-25] MEDS: carvedilol 6.25mg tablet PO SCH ×2 (09:31→17:55)
[2018-11-25] MEDS: lactobacillus rhamnosus 10,000 MMU CELLS/CAPSULE PO SCH ×2 (09:31→19:04)
[2018-11-25] MEDS: pantoprazole 40mg Tablet.DR PO SCH (09:31)
[2018-11-25] MEDS: furosemide 40mg/4ml inj IV SCH (09:32)
[2018-11-25 10:59] LABS: TOTAL CELLS COUNTED 100
[2018-11-25 11:10] LABS: ANISOCYTOSIS 1+; PLATELET ESTIMATE INCREASED
[2018-11-25 11:11] LABS: POLYCHROMASIA FEW; TOXIC GRANULATION 1+
[2018-11-25] MEDS: levoFLOXACIN 750MG TABLET PO SCH (11:55)
--- NOTE | 2018-11-25 15:08 | NUR ---
This nurse agrees with Martin Herrera supervisor pyrotechnic loading.
[2018-11-25] MEDS: rivaroxaban 20mg tablet PO SCH (18:06)
--- NOTE | 2018-11-25 18:20 | NUR ---
Patient in room PCU 3014. I have received report from Tashia HENNING & Oxana HENNING and had the opportunity to ask questions and assume patient care.
--- NOTE | 2018-11-25 18:21 | NUR ---
Problems reprioritized. Patient report given, questions answered & plan of care reviewed with Glenny HENNING.
[2018-11-25] MEDS: HYDROcodone/acetaminophen 10/325mg tab PO PRN (19:05)
[2018-11-25] MEDS: insulin glargine (Lantus) pen - multi-dose SQ SCH (21:36)
[2018-11-26] MEDS: ipratropium/albuterol 3ml nebule NEB SCH ×2 (02:00→08:16)
[2018-11-26 03:00] VITALS: BP 101/58
[2018-11-26 06:00] VITALS: BP 104/71
--- NOTE | 2018-11-26 06:00 | NUR ---
Patient in room PCU 3014. I have received report from Glenny HENNING and had the opportunity to ask questions and assume patient care.
--- NOTE | 2018-11-26 06:05 | NUR ---
Problems reprioritized. Patient report given, questions answered & plan of care reviewed with Jeanine HENNING & Chrissy HENNING.
[2018-11-26] MEDS: lactobacillus rhamnosus 10,000 MMU CELLS/CAPSULE PO SCH (07:30)
[2018-11-26] MEDS: pantoprazole 40mg Tablet.DR PO SCH (07:30)
[2018-11-26] MEDS: carvedilol 6.25mg tablet PO SCH (07:30)
[2018-11-26] MEDS: spironolactone 50 MG tablet PO SCH (07:30)
--- NOTE | 2018-11-26 07:47 | NUR ---
Page to Dr. Sandoval re: Room 4260Z Cyndee Pearl IV leaking, can we switch IV Lasix to oral and keep IV out, do you want labs today? Oxana Neely6 awaiting call back Addendum: 11/26/18 at 0751 by Oxana Herrera RN Received call back from Dr Sandoval, DIANE to take IV out and leave out, switch IV lasix to oral 40mg daily, CBC and CMP ordered
[2018-11-26] MEDS ORDERED: furosemide 40mg tablet PO SCH (08:00)
[2018-11-26] MEDS ORDERED: furosemide 40mg/4ml inj IV SCH (08:00)
[2018-11-26] MEDS: K and/or MAG REPLACEMENT MC SCH (08:00)
[2018-11-26 09:48] LABS: BASOPHILS # (AUTO) 0.2 X10'3 (0-0.2); BASOPHILS % (AUTO) 0.9 % (0-1); EOSINOPHILS # (AUTO) 0.1 X10'3 (0-0.9); EOSINOPHILS % (AUTO) 0.2 % (0-6); HEMATOCRIT 34.3 % (35.0-45.0); HEMOGLOBIN 11.1 g/dl (12.0-16.0); LYMPHOCYTES # (AUTO) 2.6 X10'3 (1.1-4.8); LYMPHOCYTES % (AUTO) 11.9 % (21-51); MEAN CORPUSCULAR HEMOGLOBIN 26.4 PG (27.0-31.0); MEAN CORPUSCULAR HGB CONC 32.4 g/dL (33.0-36.5); MEAN CORPUSCULAR VOLUME 81.5 FL (78-98); MEAN PLATELET VOLUME 6.5 FL (7.4-10.4); MONOCYTES # (AUTO) 1.4 X10'3 (0-0.9); MONOCYTES % (AUTO) 6.6 % (2-12); NEUTROPHILS # (AUTO) 17.4 X10'3 (1.8-7.7); NEUTROPHILS % (AUTO) 80.4 % (42-75); PLATELET COUNT 431 X10'3 (140-440); RED BLOOD COUNT 4.21 X10'6 (4.20-5.60); RED CELL DISTRIBUTION WIDTH 16.2 % (11.5-14.5); WHITE BLOOD COUNT 21.6 X10'3 (4.5-11.0)
[2018-11-26 10:10] LABS: ALANINE AMINOTRANSFERASE 27 U/L (12-78); ALBUMIN 2.4 G/DL (3.4-5.0); ALBUMIN/GLOBULIN RATIO 0.6 (1.1-1.5); ALKALINE PHOSPHATASE 61 IU/L (46-116); ANION GAP 4 (8-16); ASPARTATE AMINO TRANSFERASE 12 U/L (10-37); BILIRUBIN,TOTAL 0.3 MG/DL (0.1-1.0); BLOOD UREA NITROGEN 19 MG/DL (7-18); BUN/CREATININE RATIO 25.7 (6.6-38.0); CALCIUM 9.2 MG/DL (8.5-10.1); CHLORIDE 96 MMOL/L (99-107); CREATININE 0.74 MG/DL (0.40-0.90); GLUCOSE 201 MG/DL (70-104); POTASSIUM 3.5 MMOL/L (3.5-5.1); SODIUM 133 MMOL/L (135-145); TOTAL CARBON DIOXIDE 33.5 MMOL/L (24-32); TOTAL PROTEIN 6.4 G/DL (6.4-8.2); eGFR 75 ML/MIN
[2018-11-26 10:17] LABS: TOTAL CELLS COUNTED 100
[2018-11-26 10:19] LABS: ANISOCYTOSIS 1+; PLATELET ESTIMATE NORMAL; TOXIC VACUOLATION FEW
[2018-11-26 10:20] LABS: TOXIC GRANULATION 1+
[2018-11-26] MEDS: levoFLOXACIN 750MG TABLET PO SCH (10:22)
[2018-11-26] MEDS: insulin Lispro (HumaLOG) vial - multi-dose SQ SCH ×2 (10:25→14:18)
[2018-11-26 11:00] VITALS: BP 110/50
[2018-11-26] MEDS ORDERED: LEVO750T46 PO (13:34)
[2018-11-26] MEDS ORDERED: PRED10TA PO (13:38)
--- NOTE | 2018-11-26 14:30 | NUR ---
Pt discharged in stable condition via wheelchair, IV removed, wearing 2 L O2 via nasal cannula. Pt belongings sent with patient. Pt off floor at this time, care relinquished.
--- NOTE | 2018-11-26 15:00 | NUR ---
Orientee documentation: I have reviewed and agree with interventions, assessments performed and documented by MILADY Daigle.
== END 2018-11-26 14:50 | disposition home or self-care (01) | DRG 193 ==
LOC: ER 12:22 → ED HOLD 16:41 → PCU 3S 16:43 → CMPBEDREQ 11-20 01:25
PROVIDERS: ADMIT Internal Medicine; ATTEND Internal Medicine
DX: J18.1 Lobar pneumonia, unspecified organism (principal); J96.20 Acute and chronic respiratory failure, unspecified whether with hypoxia or hypercapnia; R65.10 Systemic inflammatory response syndrome (SIRS) of non-infectious origin without acute organ dysfunction; E11.9 Type 2 diabetes mellitus without complications; I50.9 Heart failure, unspecified; D63.8 Anemia in other chronic diseases classified elsewhere; J43.9 Emphysema, unspecified; F03.90 Unspecified dementia, unspecified severity, without behavioral disturbance, psychotic disturbance, mood disturbance, and anxiety; I48.91 Unspecified atrial fibrillation; Z66 Do not resuscitate; Z90.49 Acquired absence of other specified parts of digestive tract; Z90.710 Acquired absence of both cervix and uterus; Z99.81 Dependence on supplemental oxygen; Z88.8 Allergy status to other drugs, medicaments and biological substances; Z79.84 Long term (current) use of oral hypoglycemic drugs; Z79.52 Long term (current) use of systemic steroids; Z79.899 Other long term (current) drug therapy; Z79.01 Long term (current) use of anticoagulants; Z87.891 Personal history of nicotine dependence
CPT/HCPCS: 36415; 71045; 80048; 80053; 80202; 81001; 82272; 82728; 82948; 83036; 83540; 83550; 83605; 83735; 83880; 84145; 84484; 85025; 85610; 85730; 87040; 87070; 92508; 92616; 93005; 93306; 93308; 94640; 94667; 94760; 96365; 97116; 97161; 97530; 99285; G0378; J1815; J1940; J1956; J2543; J2920; J3370; J7030; J7512

== ENCOUNTER 2018-12-28 12:27 | Inpatient (IN) | payer MEDICARE, MEDICAID ==
[~2018-12-28] VITALS: Ht 162.6 cm; Wt 77.3 kg
[~2018-12-28 12:27] MED LIST: ALBU2.5V10 NEB; ARFO15VI NEB; CARV6.253 PO; FURO40TA4 PO; HYDR-3972 PO; LEVO750T46 PO; METF-950 PO; PRED10TA PO; RIVA20TA PO; SPIR50TA5 PO
[2018-12-28] MEDS ORDERED: haloperidol 5mg tablet PO ONE (12:40)
[2018-12-28 13:20] LABS: BASOPHILS # (AUTO) 0.1 X10'3 (0-0.2); BASOPHILS % (AUTO) 0.5 % (0-1); EOSINOPHILS # (AUTO) 0.3 X10'3 (0-0.9); EOSINOPHILS % (AUTO) 1.8 % (0-6); HEMATOCRIT 30.8 % (35.0-45.0); HEMOGLOBIN 9.8 g/dl (12.0-16.0); LYMPHOCYTES # (AUTO) 1.8 X10'3 (1.1-4.8); LYMPHOCYTES % (AUTO) 12.1 % (21-51); MEAN CORPUSCULAR HEMOGLOBIN 25.2 PG (27.0-31.0); MEAN CORPUSCULAR HGB CONC 31.8 g/dL (33.0-36.5); MEAN CORPUSCULAR VOLUME 79.4 FL (78-98); MEAN PLATELET VOLUME 6.8 FL (7.4-10.4); MONOCYTES # (AUTO) 1.7 X10'3 (0-0.9); MONOCYTES % (AUTO) 11.6 % (2-12); NEUTROPHILS # (AUTO) 10.8 X10'3 (1.8-7.7); PLATELET COUNT 465 X10'3 (140-440); RED BLOOD COUNT 3.88 X10'6 (4.20-5.60); RED CELL DISTRIBUTION WIDTH 16.5 % (11.5-14.5); WHITE BLOOD COUNT 14.6 X10'3 (4.5-11.0)
[2018-12-28 13:28] LABS: PARTIAL THROMBOPLASTIN TIME 40 SECONDS (22-32)
[2018-12-28 13:30] LABS: ALANINE AMINOTRANSFERASE 22 U/L (12-78); ALBUMIN 2.9 G/DL (3.4-5.0); ALBUMIN/GLOBULIN RATIO 0.7 (1.1-1.5); ALKALINE PHOSPHATASE 73 IU/L (46-116); ANION GAP 6 (8-16); ASPARTATE AMINO TRANSFERASE 16 U/L (10-37); BILIRUBIN,TOTAL 0.3 MG/DL (0.1-1.0); BLOOD UREA NITROGEN 10 MG/DL (7-18); BUN/CREATININE RATIO 14.5 (6.6-38.0); CALCIUM 9.2 MG/DL (8.5-10.1); CHLORIDE 99 MMOL/L (99-107); CREATININE 0.69 MG/DL (0.40-0.90); GLUCOSE 102 MG/DL (70-104); POTASSIUM 3.8 MMOL/L (3.5-5.1); SODIUM 137 MMOL/L (135-145); TOTAL CARBON DIOXIDE 32.2 MMOL/L (24-32); TOTAL PROTEIN 7.1 G/DL (6.4-8.2); eGFR 81 ML/MIN
[2018-12-28] MEDS ORDERED: ALBU8.5H8 INH (13:37)
[2018-12-28 13:50] LABS: ANISOCYTOSIS 1+; MICROCYTOSIS 1+; PLATELET ESTIMATE INCREASED
--- NOTE | 2018-12-28 13:57 | NUR ---
paige pt's daughter
[2018-12-28] MEDS ORDERED: iohexol 350MG/ML 100ml bottle IV ONE ×2 (14:28→17:01)
--- NOTE | 2018-12-28 14:46 | NUR ---
Per Jim from CT, she states that patient refused to lay flat for CT scan. Dr. Marin aware.
--- NOTE | 2018-12-28 14:51 | NUR ---
Erlinda called back after page and stated that she would be right down.
--- NOTE | 2018-12-28 16:27 | NUR ---
Called Patients aung discussed patients clinical status per patient request. Daughter states that she will bring new clothing and come pick patient up.
[2018-12-28 18:01] LABS: CLARITY,URINE SLIGHTLY CLOUDY (Clear); COLOR,URINE YELLOW (Yellow); GLUCOSE, URINE NEGATIVE (Neg); KETONES,URINE NEGATIVE (Neg); LEUKOCYTE ESTERASE ,URINE NEGATIVE (Neg); NITRITES, URINE POSITIVE (Neg); OCCULT BLOOD,URINE NEGATIVE (Neg); PROTEIN,URINE NEGATIVE (Neg); UROBILINOGEN,URINE 0.2 E.U/dL (0.2-1.0)
[2018-12-28 18:02] LABS: UA COLLECTION TYPE NON-SPECIFIED
[2018-12-28 18:09] LABS: BACTERIA,URINE 2+ /HPF (Neg); SQUAMOUS EPITHELIAL CELL,UR FEW /LPF (FEW)
[2018-12-28 18:10] LABS: RBC,URINE 0-2 /HPF (0-2); WBC,URINE 0-4 /HPF (0-4)
[2018-12-28] MEDS ORDERED: levoFLOXACIN-Levaquin 750MG/D5 150 ML IV STA (18:15)
[2018-12-28] MEDS ORDERED: CefTRIAXone 2gm/D5W 50ml 50 ML IV ONE (18:15)
--- NOTE | 2018-12-28 20:06 | NUR ---
DAUGHTER HAS GONE HOME FOR THE NIGHT. REVIEWED CONTACT NUMBERS FOR HER PRIOR TO LEAVING.
--- NOTE | 2018-12-28 21:33 | NUR ---
HOSPITALIST AT BEDSIDE
[2018-12-28] MEDS ORDERED: ondansetron/PF 4mg/2ml inj IV PRN (21:50)
[2018-12-28] MEDS ORDERED: potassium Cl 40MEQ/NS 500ml 500 ML IV PRN (21:50)
[2018-12-28] MEDS ORDERED: magnesium Cl slow-release 64mg tablet PO PRN (21:50)
[2018-12-28] MEDS ORDERED: potassium Cl 20 mEq SR tablet PO PRN (21:50)
[2018-12-28] MEDS ORDERED: potassium CL 10mEq/100ml bag 100 ML IV PRN (21:50)
[2018-12-28] MEDS ORDERED: mag hydrox/Alum hydrox/simeth 30ml oral suspension PO PRN (21:50)
[2018-12-28] MEDS ORDERED: magnesium hydroxide 30ml (MOM) UD suspension PO PRN (21:50)
[2018-12-28] MEDS ORDERED: acetaminophen 325mg tablet PO PRN (21:50)
[2018-12-28] MEDS ORDERED: magnesium 4gm in 100ml NS 100 ML IV PRN (21:50)
[2018-12-28] MEDS ORDERED: magnesium 2GM in 50ml NS 50 ML IV PRN (21:50)
[2018-12-28] MEDS ORDERED: bisacodyl 10mg suppository rectal RC PRN (21:50)
[2018-12-28] MEDS ORDERED: morphine 2 MG/ML inj. syringe IV PRN ×2 (21:50)
[2018-12-28] MEDS ORDERED: dextrose 50%-water 50ml dispensing syringe IV PRN ×2 (21:55)
[2018-12-28] MEDS ORDERED: glucagon, human recombinant 1mg kit SUBCUT PRN (21:55)
[2018-12-28] MEDS: furosemide 20 MG/2 ML vial IV SCH (21:55)
[2018-12-28] MEDS: methylPREDNISolone sod succ 125mg/2ml vial IV SCH (21:55)
[2018-12-28] MEDS ORDERED: dextrose ORAL solution 15 GM/59 ML bottle PO PRN ×2 (21:55)
[2018-12-28] MEDS ORDERED: MESSAGE TO PHARMACY PO ONE (21:55)
[2018-12-28] MEDS ORDERED: HYDROcodone/acetaminophen 10/325mg tab PO PRN (21:55)
[2018-12-28] MEDS ORDERED: albuterol 2.5 MG/3 ML nebule NEB PRN (22:10)
[2018-12-28] MEDS: ipratropium/albuterol 3ml nebule NEB SCH (23:13)
[2018-12-28 23:30] VITALS: BP 123/41
[2018-12-29] MEDS: metroNIDAZOLE-Flagyl 500mg/NS 100 ML IV SCH ×3 (00:09→15:54)
[2018-12-29] MEDS: ipratropium/albuterol 3ml nebule NEB SCH ×5 (02:55→23:00)
[2018-12-29 03:00] VITALS: BP 121/51
[2018-12-29] MEDS: methylPREDNISolone sod succ 125mg/2ml vial IV SCH ×4 (03:22→21:35)
[2018-12-29 06:00] VITALS: BP 115/50
[2018-12-29 06:04] LABS: BASOPHILS # (AUTO) 0.1 X10'3 (0-0.2); BASOPHILS % (AUTO) 0.6 % (0-1); EOSINOPHILS % (AUTO) 0.2 % (0-6); HEMATOCRIT 30.3 % (35.0-45.0); HEMOGLOBIN 10.1 g/dl (12.0-16.0); LYMPHOCYTES # (AUTO) 1.1 X10'3 (1.1-4.8); LYMPHOCYTES % (AUTO) 10.2 % (21-51); MEAN CORPUSCULAR HEMOGLOBIN 26.5 PG (27.0-31.0); MEAN CORPUSCULAR HGB CONC 33.4 g/dL (33.0-36.5); MEAN CORPUSCULAR VOLUME 79.3 FL (78-98); MEAN PLATELET VOLUME 6.9 FL (7.4-10.4); MONOCYTES # (AUTO) 0.2 X10'3 (0-0.9); MONOCYTES % (AUTO) 2.1 % (2-12); NEUTROPHILS # (AUTO) 9.1 X10'3 (1.8-7.7); NEUTROPHILS % (AUTO) 86.9 % (42-75); PLATELET COUNT 394 X10'3 (140-440); RED BLOOD COUNT 3.82 X10'6 (4.20-5.60); RED CELL DISTRIBUTION WIDTH 16.2 % (11.5-14.5); WHITE BLOOD COUNT 10.4 X10'3 (4.5-11.0)
--- NOTE | 2018-12-29 06:10 | NUR ---
Patient in room PCU 3016. I have received report from Cristal HENNING and had the opportunity to ask questions and assume patient care.
[2018-12-29 07:07] LABS: ALBUMIN 2.6 G/DL (3.4-5.0); ANION GAP 6 (8-16); BLOOD UREA NITROGEN 8 MG/DL (7-18); BUN/CREATININE RATIO 12.9 (6.6-38.0); CALCIUM 9.1 MG/DL (8.5-10.1); CHLORIDE 102 MMOL/L (99-107); CREATININE 0.62 MG/DL (0.40-0.90); GLUCOSE 171 MG/DL (70-104); MAGNESIUM 1.9 MG/DL (1.5-2.4); POTASSIUM 3.6 MMOL/L (3.5-5.1); SODIUM 138 MMOL/L (135-145); TOTAL CARBON DIOXIDE 29.7 MMOL/L (24-32); eGFR > 90 ML/MIN
[2018-12-29] MEDS: pantoprazole 40mg Tablet.DR PO SCH (07:30)
[2018-12-29] MEDS ORDERED: heparin, porcine 5000 units/ml vial SQ SCH (08:00)
[2018-12-29] MEDS: docusate sod 100mg capsule PO SCH ×2 (08:00→21:35)
[2018-12-29] MEDS: K and/or MAG REPLACEMENT MC SCH (08:00)
[2018-12-29] MEDS: carvedilol 6.25mg tablet PO SCH ×2 (08:15→16:57)
[2018-12-29] MEDS: spironolactone 50 MG tablet PO SCH (08:16)
[2018-12-29] MEDS: rivaroxaban 20mg tablet PO SCH (08:17)
[2018-12-29] MEDS: furosemide 20 MG/2 ML vial IV SCH ×2 (08:19→21:37)
[2018-12-29] MEDS: levoFLOXACIN-Levaquin 750MG/D5 150 ML IV SCH (09:59)
[2018-12-29 11:11] VITALS: BP 109/54
[2018-12-29] MEDS: insulin Lispro (HumaLOG) vial - multi-dose SQ SCH ×2 (13:34→19:42)
--- NOTE | 2018-12-29 15:01 | NUR ---
DM Consult: A1C 7.4. Pt currently confused/declining care/meds per RN and has hx possible dementia in EMR. Not appropriate for DM ed at this time. Addendum: 12/29/18 at [address] Amended: Links added.
[2018-12-29 15:15] VITALS: BP 117/60
[2018-12-29] MEDS ORDERED: rivaroxaban 20mg tablet PO SCH (17:00)
--- NOTE | 2018-12-29 18:15 | NUR ---
Patient in room PCU 3016. I have received report from Tashia HENNING and had the opportunity to ask questions and assume patient care.
--- NOTE | 2018-12-29 18:25 | NUR ---
Problems reprioritized. Patient report given, questions answered & plan of care reviewed with Yumiko HENNING/ Cristal HENNING.
[2018-12-29 19:00] VITALS: BP 104/54
[2018-12-29] MEDS: insulin glargine (Lantus) pen - multi-dose SQ SCH (21:33)
[2018-12-29] MEDS: lactobacillus rhamnosus 10,000 MMU CELLS/CAPSULE PO SCH (21:36)
[2018-12-29 23:00] VITALS: BP 103/37
[2018-12-30] MEDS: metroNIDAZOLE-Flagyl 500mg/NS 100 ML IV SCH ×4 (00:57→23:43)
[2018-12-30] MEDS: methylPREDNISolone sod succ 125mg/2ml vial IV SCH ×3 (01:00→14:13)
[2018-12-30 03:00] VITALS: BP 116/51
[2018-12-30] MEDS: ipratropium/albuterol 3ml nebule NEB SCH ×6 (03:30→23:00)
[2018-12-30 05:58] LABS: BASOPHILS % (AUTO) 0.1 % (0-1); EOSINOPHILS % (AUTO) 0 % (0-6); HEMATOCRIT 30.7 % (35.0-45.0); LYMPHOCYTES # (AUTO) 1.7 X10'3 (1.1-4.8); LYMPHOCYTES % (AUTO) 10.5 % (21-51); MEAN CORPUSCULAR HGB CONC 32.7 g/dL (33.0-36.5); MEAN CORPUSCULAR VOLUME 79.6 FL (78-98); MEAN PLATELET VOLUME 7.1 FL (7.4-10.4); MONOCYTES # (AUTO) 0.7 X10'3 (0-0.9); MONOCYTES % (AUTO) 4.6 % (2-12); NEUTROPHILS # (AUTO) 13.4 X10'3 (1.8-7.7); NEUTROPHILS % (AUTO) 84.8 % (42-75); PLATELET COUNT 451 X10'3 (140-440); RED BLOOD COUNT 3.85 X10'6 (4.20-5.60); RED CELL DISTRIBUTION WIDTH 16.4 % (11.5-14.5); WHITE BLOOD COUNT 15.8 X10'3 (4.5-11.0)
--- NOTE | 2018-12-30 06:00 | NUR ---
Patient in room PCU 3016. I have received report from Yumiko RN and MILADY Bee and had the opportunity to ask questions and assume patient care.
--- NOTE | 2018-12-30 06:17 | NUR ---
Problems reprioritized. Patient report given, questions answered & plan of care reviewed with Jeanine HENNING.
[2018-12-30 06:34] LABS: ALBUMIN 2.7 G/DL (3.4-5.0); ANION GAP 6 (8-16); BLOOD UREA NITROGEN 13 MG/DL (7-18); BUN/CREATININE RATIO 18.8 (6.6-38.0); CALCIUM 8.9 MG/DL (8.5-10.1); CHLORIDE 103 MMOL/L (99-107); CREATININE 0.69 MG/DL (0.40-0.90); GLUCOSE 233 MG/DL (70-104); POTASSIUM 3.4 MMOL/L (3.5-5.1); SODIUM 140 MMOL/L (135-145); eGFR 81 ML/MIN
[2018-12-30 07:00] VITALS: BP 125/60
[2018-12-30 07:01] LABS: TOTAL CELLS COUNTED 100
[2018-12-30 07:03] LABS: ANISOCYTOSIS 1+; PLATELET ESTIMATE INCREASED; POLYCHROMASIA 1+; TOXIC GRANULATION 2+
[2018-12-30 07:04] LABS: HYPOCHROMASIA 1+
[2018-12-30] MEDS: carvedilol 6.25mg tablet PO SCH ×2 (07:29→17:48)
[2018-12-30] MEDS: pantoprazole 40mg Tablet.DR PO SCH (07:29)
[2018-12-30] MEDS: K and/or MAG REPLACEMENT MC SCH (08:00)
[2018-12-30] MEDS: levoFLOXACIN-Levaquin 750MG/D5 150 ML IV SCH (08:35)
[2018-12-30] MEDS: furosemide 20 MG/2 ML vial IV SCH ×2 (08:38→19:29)
[2018-12-30] MEDS: spironolactone 50 MG tablet PO SCH (08:39)
[2018-12-30] MEDS: rivaroxaban 20mg tablet PO SCH (08:39)
[2018-12-30] MEDS: potassium Cl 20 mEq SR tablet PO PRN ×3 (08:39→18:48)
[2018-12-30] MEDS: docusate sod 100mg capsule PO SCH ×2 (08:39→19:30)
[2018-12-30] MEDS: lactobacillus rhamnosus 10,000 MMU CELLS/CAPSULE PO SCH ×2 (08:39→19:30)
[2018-12-30] MEDS: insulin Lispro (HumaLOG) vial - multi-dose SQ SCH ×3 (08:44→18:50)
--- NOTE | 2018-12-30 09:49 | NUR ---
Attempt return call to patient's daughter Sheba, no answer. Answering machine generic, unable to confirm identiy, no message left. Will attempt call again as soon as possible.
[2018-12-30 11:00] VITALS: BP 139/48
[2018-12-30 15:00] VITALS: BP 124/63
[2018-12-30 18:00] VITALS: BP 128/59
--- NOTE | 2018-12-30 18:00 | NUR ---
Problems reprioritized. Patient report given, questions answered & plan of care reviewed with MILADY Iverson.
--- NOTE | 2018-12-30 18:25 | NUR ---
Patient in room PCU 3016B. I have received report from MILADY Solorzano and had the opportunity to ask questions and assume patient care.
[2018-12-30] MEDS: methylPREDNISolone sod succ/PF 40mg inj. IV SCH (19:29)
[2018-12-30] MEDS: insulin glargine (Lantus) pen - multi-dose SQ SCH (21:05)
[2018-12-30 22:00] VITALS: BP 139/68
[2018-12-31] MEDS: methylPREDNISolone sod succ/PF 40mg inj. IV SCH ×2 (01:39→08:14)
[2018-12-31 02:00] VITALS: BP 128/52
[2018-12-31] MEDS: ipratropium/albuterol 3ml nebule NEB SCH ×2 (03:00→07:00)
--- NOTE | 2018-12-31 06:00 | NUR ---
Patient in room PCU 3016. I have received report from MILADY Albrecht and had the opportunity to ask questions and assume patient care.
[2018-12-31 06:27] LABS: BASOPHILS % (AUTO) 0.1 % (0-1); EOSINOPHILS % (AUTO) 0 % (0-6); HEMATOCRIT 32.1 % (35.0-45.0); HEMOGLOBIN 10.4 g/dl (12.0-16.0); LYMPHOCYTES # (AUTO) 1.6 X10'3 (1.1-4.8); LYMPHOCYTES % (AUTO) 8.5 % (21-51); MEAN CORPUSCULAR HEMOGLOBIN 25.9 PG (27.0-31.0); MEAN CORPUSCULAR HGB CONC 32.5 g/dL (33.0-36.5); MEAN CORPUSCULAR VOLUME 79.8 FL (78-98); MEAN PLATELET VOLUME 7.2 FL (7.4-10.4); MONOCYTES # (AUTO) 0.9 X10'3 (0-0.9); MONOCYTES % (AUTO) 4.7 % (2-12); NEUTROPHILS # (AUTO) 16.6 X10'3 (1.8-7.7); NEUTROPHILS % (AUTO) 86.7 % (42-75); PLATELET COUNT 489 X10'3 (140-440); RED BLOOD COUNT 4.03 X10'6 (4.20-5.60); RED CELL DISTRIBUTION WIDTH 16.4 % (11.5-14.5); WHITE BLOOD COUNT 19.1 X10'3 (4.5-11.0)
--- NOTE | 2018-12-31 06:30 | NUR ---
Problems reprioritized. Patient report given, questions answered & plan of care reviewed with MIALDY Solorzano.
[2018-12-31 07:00] VITALS: BP 109/70
[2018-12-31 07:49] LABS: ALBUMIN 2.9 G/DL (3.4-5.0); ANION GAP 7 (8-16); BLOOD UREA NITROGEN 18 MG/DL (7-18); BUN/CREATININE RATIO 27.3 (6.6-38.0); CALCIUM 8.8 MG/DL (8.5-10.1); CHLORIDE 102 MMOL/L (99-107); CREATININE 0.66 MG/DL (0.40-0.90); GLUCOSE 174 MG/DL (70-104); MAGNESIUM 2.2 MG/DL (1.5-2.4); POTASSIUM 3.9 MMOL/L (3.5-5.1); SODIUM 140 MMOL/L (135-145); TOTAL CARBON DIOXIDE 31.2 MMOL/L (24-32); eGFR 85 ML/MIN
[2018-12-31] MEDS: docusate sod 100mg capsule PO SCH (08:00)
[2018-12-31] MEDS: K and/or MAG REPLACEMENT MC SCH (08:00)
[2018-12-31] MEDS: carvedilol 6.25mg tablet PO SCH (08:13)
[2018-12-31] MEDS: metroNIDAZOLE-Flagyl 500mg/NS 100 ML IV SCH (08:14)
[2018-12-31] MEDS: pantoprazole 40mg Tablet.DR PO SCH (08:14)
[2018-12-31] MEDS: lactobacillus rhamnosus 10,000 MMU CELLS/CAPSULE PO SCH (08:14)
[2018-12-31] MEDS: furosemide 20 MG/2 ML vial IV SCH (08:14)
[2018-12-31] MEDS: rivaroxaban 20mg tablet PO SCH (08:15)
[2018-12-31] MEDS: spironolactone 50 MG tablet PO SCH (08:16)
[2018-12-31] MEDS: insulin Lispro (HumaLOG) vial - multi-dose SQ SCH (09:46)
[2018-12-31] MEDS: levoFLOXACIN-Levaquin 750MG/D5 150 ML IV SCH (10:01)
[2018-12-31 11:00] VITALS: BP 135/60
--- NOTE | 2018-12-31 11:25 | NUR ---
Report called to Will.
--- NOTE | 2018-12-31 11:42 | NUR ---
Pt transferred to [place] via wheelchair by [facility] in stable condition, 2L via NC. Pt pleasantly confused, baseline. 1 bag of patient belongings with patient. IV removed, catheter intact. Pt off unit, care relinquished at this time.
== END 2018-12-31 11:50 | DRG 177 ==
LOC: ER 12:28 → PCU 3S 22:19 → CMPBEDREQ 22:29
PROVIDERS: ADMIT Internal Medicine; ATTEND Family Medicine
DX: J69.0 Pneumonitis due to inhalation of food and vomit (principal); I50.41 Acute combined systolic (congestive) and diastolic (congestive) heart failure; J96.20 Acute and chronic respiratory failure, unspecified whether with hypoxia or hypercapnia; J44.1 Chronic obstructive pulmonary disease with (acute) exacerbation; J44.0 Chronic obstructive pulmonary disease with (acute) lower respiratory infection; R91.1 Solitary pulmonary nodule; D64.9 Anemia, unspecified; F03.90 Unspecified dementia, unspecified severity, without behavioral disturbance, psychotic disturbance, mood disturbance, and anxiety; E11.65 Type 2 diabetes mellitus with hyperglycemia; Z88.8 Allergy status to other drugs, medicaments and biological substances; Z88.6 Allergy status to analgesic agent; Z90.49 Acquired absence of other specified parts of digestive tract; Z99.81 Dependence on supplemental oxygen; Z90.710 Acquired absence of both cervix and uterus
CPT/HCPCS: 36415; 71045; 71275; 80048; 80053; 81001; 82948; 83605; 83735; 83880; 85025; 85610; 85730; 87040; 87070; 87077; 87088; 87186; 92508; 92616; 93005; 94640; 94760; 96365; 96366; 96368; 96375; 97116; 97161; 97530; 99285; G0378; J0696; J1815; J1940; J1956; J2920; J2930; J3490; Q9967

== ENCOUNTER 2019-03-27 22:09 | Inpatient (IN) | payer MEDICARE, MEDICAID ==
[~2019-03-27] VITALS: Ht 160 cm; Wt 70.5 kg
[~2019-03-27 22:09] MED LIST changes: +ALBU8.5H8 INH; -LEVO750T46 PO; -PRED10TA PO
[2019-03-27] MEDS ORDERED: methylPREDNISolone sod succ 125mg/2ml vial IV ONE (22:25)
[2019-03-27] MEDS ORDERED: furosemide 40mg/4ml inj IV ONE (22:25)
[2019-03-27] MEDS ORDERED: ipratropium/albuterol 3ml nebule NEB ONE (22:25)
[2019-03-27] MEDS ORDERED: nitroGLYCERIN 0.4mg/hour patch TD ONE (22:30)
[2019-03-27 22:41] LABS: BASOPHILS # (AUTO) 0.2 X10'3 (0-0.2); EOSINOPHILS # (AUTO) 0.4 X10'3 (0-0.9); HEMATOCRIT 33.6 % (35.0-45.0); HEMOGLOBIN 10.7 g/dl (12.0-16.0); LYMPHOCYTES # (AUTO) 2.4 X10'3 (1.1-4.8); LYMPHOCYTES % (AUTO) 11.7 % (21-51); MEAN CORPUSCULAR HEMOGLOBIN 23.9 PG (27.0-31.0); MEAN CORPUSCULAR HGB CONC 31.8 g/dL (33.0-36.5); MEAN CORPUSCULAR VOLUME 75.2 FL (78-98); MEAN PLATELET VOLUME 6.9 FL (7.4-10.4); MONOCYTES # (AUTO) 1.7 X10'3 (0-0.9); MONOCYTES % (AUTO) 8.4 % (2-12); NEUTROPHILS # (AUTO) 15.8 X10'3 (1.8-7.7); NEUTROPHILS % (AUTO) 76.9 % (42-75); PLATELET COUNT 548 X10'3 (140-440); RED BLOOD COUNT 4.46 X10'6 (4.20-5.60); RED CELL DISTRIBUTION WIDTH 17.3 % (11.5-14.5); WHITE BLOOD COUNT 20.6 X10'3 (4.5-11.0)
[2019-03-27] MEDS ORDERED: CefTRIAXone 2gm/D5W 50ml 50 ML IV ONE (22:55)
[2019-03-27] MEDS ORDERED: azithromycin/NS 500mg/250ml 250 ML IV ONE (22:55)
[2019-03-27 22:56] LABS: ABG BASE EXCESS 10.8 mmol/L (-2.0-3.0); ABG HCO3 36.4 mmol/L (22.0-26.0); ABG OXYGEN SATURATION 84.1 % (95-98); ABG PCO2 (T) 51.7 mmHg (35.0-45.0); ABG PH (T) 7.464 (7.350-7.450); ABG PO2 (T) 47.3 mmHg (83-108); ALLEN'S TEST Positive; FCOHb 0.2 % (0.5-1.5); FLOW 15 L/min; FMetHb 0.2 % (0.3-1.12); FO2Hb 83.8 % (94-100); PATIENT TEMPERATURE 36.5; TOTAL HEMOGLOBIN 11.7 G/dl (12.0-16.0)
[2019-03-27] MEDS ORDERED: LORazepam 2 mg/ml vial IV ONE ×2 (23:05→23:40)
[2019-03-27 23:06] LABS: PARTIAL THROMBOPLASTIN TIME 69 SECONDS (22-32)
[2019-03-27 23:24] LABS: ALANINE AMINOTRANSFERASE 16 U/L (12-78); ALBUMIN 3.1 G/DL (3.4-5.0); ALBUMIN/GLOBULIN RATIO 0.7 (1.1-1.5); ALKALINE PHOSPHATASE 84 IU/L (46-116); ANION GAP 9 (8-16); ASPARTATE AMINO TRANSFERASE 13 U/L (10-37); BILIRUBIN,TOTAL 0.3 MG/DL (0.1-1.0); BLOOD UREA NITROGEN 18 MG/DL (7-18); CALCIUM 8.7 MG/DL (8.5-10.1); CHLORIDE 95 MMOL/L (99-107); GLUCOSE 148 MG/DL (70-104); POTASSIUM 3.6 MMOL/L (3.5-5.1); SODIUM 139 MMOL/L (135-145); TOTAL CARBON DIOXIDE 35.2 MMOL/L (24-32); TOTAL PROTEIN 7.4 G/DL (6.4-8.2); eGFR 53 ML/MIN
[2019-03-27 23:26] LABS: MAGNESIUM 1.7 MG/DL (1.5-2.4); TROPONIN I < 0.04 NG/ML (0.0-0.05)
[2019-03-27] MEDS ORDERED: TORS20TA3 PO (23:33)
[2019-03-28] VITALS (8 sets, daily range): BP systolic 87–113; BP diastolic 40–56
[2019-03-28 01:35] LABS: ABG BASE EXCESS 9.1 mmol/L (-2.0-3.0); ABG HCO3 35.6 mmol/L (22.0-26.0); ABG OXYGEN SATURATION 99.5 % (95-98); ABG PCO2 (T) 58.8 mmHg (35.0-45.0); ABG PH (T) 7.401 (7.350-7.450); ABG PO2 (T) 296.9 mmHg (83-108); ALLEN'S TEST Positive; FCOHb 0.3 % (0.5-1.5); FMetHb 0.3 % (0.3-1.12); FO2Hb 98.9 % (94-100); MINUTE VOLUME 16 L/min; PATIENT TEMPERATURE 37.1; RESPIRATORY RATE 20 b/min; RESPIRATORY RATE (OBSERVED) 29 b/min; TIDAL VOLUME 671 mL; TOTAL HEMOGLOBIN 11.5 G/dl (12.0-16.0)
[2019-03-28] MEDS ORDERED: QUET25TA34 PO (01:54)
[2019-03-28] MEDS ORDERED: magnesium hydroxide 30ml (MOM) UD suspension PO PRN (01:55)
[2019-03-28] MEDS ORDERED: mag hydrox/Alum hydrox/simeth 30ml oral suspension PO PRN (01:55)
[2019-03-28] MEDS ORDERED: ondansetron/PF 4mg/2ml inj IV PRN (01:55)
[2019-03-28] MEDS ORDERED: dextrose 50%-water 50ml dispensing syringe IV PRN ×2 (02:00)
[2019-03-28] MEDS ORDERED: albuterol 2.5 MG/3 ML nebule NEB PRN (02:00)
[2019-03-28] MEDS ORDERED: glucagon, human recombinant 1mg kit SUBCUT PRN (02:00)
[2019-03-28] MEDS ORDERED: dextrose ORAL solution 15 GM/59 ML bottle PO PRN (02:00)
[2019-03-28] MEDS ORDERED: MESSAGE TO PHARMACY PO ONE (02:00)
[2019-03-28] MEDS ORDERED: non-formulary drug (Albuterol Sulfate (Proair Hfa) 2 PUFFS) INH SCH (02:00)
[2019-03-28 02:20] LABS: HEMOGLOBIN A1C 7.2 % (4.5-6.2)
[2019-03-28] MEDS: clindamycin 300mg/D5W 50mL 50 ML IV SCH ×2 (02:22→08:42)
[2019-03-28] MEDS: albuterol 2.5 MG/3 ML nebule NEB SCH ×7 (02:25→23:12)
--- NOTE | 2019-03-28 04:59 | NUR ---
Patient in room . I have received report from MILADY Wellington in the ER and had the opportunity to ask questions and assume patient care.
--- NOTE | 2019-03-28 06:17 | NUR ---
Problems reprioritized. Patient report given, questions answered & plan of care reviewed with MILADY Cronin.
--- NOTE | 2019-03-28 06:36 | NUR ---
Patient in room PCU 3009. I have received report from Christin HENNING and had the opportunity to ask questions and assume patient care.
[2019-03-28] MEDS ORDERED: CefTRIAXone/D5W-Rocephin 1gm 50 ML IV SCH (08:00)
[2019-03-28] MEDS: spironolactone 50 MG tablet PO SCH (08:42)
[2019-03-28] MEDS: furosemide 40mg tablet PO SCH (08:42)
[2019-03-28] MEDS: carvedilol 6.25mg tablet PO SCH ×2 (08:43→20:20)
[2019-03-28] MEDS: methylPREDNISolone sod succ/PF 40mg inj. IV SCH ×2 (08:45→20:20)
--- NOTE | 2019-03-28 09:50 | NUR ---
DM consult: Pt with A1c 7.2. Pt with hx dementia, currently documented as A/O x 2 and confused, education not appropriate at this time. Noted that A1c down from 7.4 in November of this year. Will continue to follow. Addendum: 03/28/19 at [address] Amended: Links added.
[2019-03-28] MEDS: insulin Lispro (HumaLOG) vial - multi-dose SQ SCH ×3 (09:52→20:19)
[2019-03-28 10:35] LABS: BASOPHILS % (AUTO) 0.1 % (0-1); EOSINOPHILS % (AUTO) 0 % (0-6); HEMATOCRIT 31.8 % (35.0-45.0); LYMPHOCYTES # (AUTO) 1.1 X10'3 (1.1-4.8); LYMPHOCYTES % (AUTO) 5.5 % (21-51); MEAN CORPUSCULAR HEMOGLOBIN 23.7 PG (27.0-31.0); MEAN CORPUSCULAR HGB CONC 31.5 g/dL (33.0-36.5); MEAN CORPUSCULAR VOLUME 75.3 FL (78-98); MEAN PLATELET VOLUME 7.1 FL (7.4-10.4); MONOCYTES # (AUTO) 0.3 X10'3 (0-0.9); MONOCYTES % (AUTO) 1.5 % (2-12); NEUTROPHILS % (AUTO) 92.9 % (42-75); PLATELET COUNT 501 X10'3 (140-440); RED BLOOD COUNT 4.22 X10'6 (4.20-5.60); RED CELL DISTRIBUTION WIDTH 17.1 % (11.5-14.5); WHITE BLOOD COUNT 20.5 X10'3 (4.5-11.0)
[2019-03-28 10:44] LABS: ALBUMIN 2.6 G/DL (3.4-5.0); ANION GAP 6 (8-16); BLOOD UREA NITROGEN 16 MG/DL (7-18); BUN/CREATININE RATIO 19.3 (6.6-38.0); CALCIUM 8.9 MG/DL (8.5-10.1); CHLORIDE 97 MMOL/L (99-107); CREATININE 0.83 MG/DL (0.40-0.90); GLUCOSE 233 MG/DL (70-104); POTASSIUM 3.5 MMOL/L (3.5-5.1); SODIUM 138 MMOL/L (135-145); TOTAL CARBON DIOXIDE 35.3 MMOL/L (24-32); eGFR 65 ML/MIN
[2019-03-28] MEDS: piperacillin/tazo 4.5gm/100ml 100 ML IV SCH ×2 (11:22→17:34)
--- NOTE | 2019-03-28 13:43 | NUR ---
Spoke to Dr. Mcfarlane, asked if MD wanted ABG since previous results lead to her being placed on BIPAP, states no need for another ABG unless becomes symptomatic.
--- NOTE | 2019-03-28 14:37 | NUR ---
Noted patient hadn't voided all day, asked patient is she needs to void got up to use BSC, voided 700 ml.
[2019-03-28] MEDS: rivaroxaban 20mg tablet PO SCH (17:34)
--- NOTE | 2019-03-28 18:15 | NUR ---
Patient in room PCU 3009. I have received report from Tashia HENNING and Rebecca HENNING and had the opportunity to ask questions and assume patient care.
[2019-03-28] MEDS: QUEtiapine 25mg tablet PO SCH (20:20)
[2019-03-28] MEDS: insulin glargine (Lantus) pen - multi-dose SQ SCH (22:00)
[2019-03-29] MEDS: piperacillin/tazo 4.5gm/100ml 100 ML IV SCH ×3 (02:36→16:09)
[2019-03-29 03:00] VITALS: BP 108/52
[2019-03-29] MEDS: albuterol 2.5 MG/3 ML nebule NEB SCH ×6 (03:57→23:09)
[2019-03-29 04:49] LABS: BASOPHILS % (AUTO) 0.1 % (0-1); EOSINOPHILS % (AUTO) 0 % (0-6); HEMATOCRIT 29.8 % (35.0-45.0); HEMOGLOBIN 9.5 g/dl (12.0-16.0); LYMPHOCYTES # (AUTO) 1.1 X10'3 (1.1-4.8); LYMPHOCYTES % (AUTO) 5.8 % (21-51); MEAN CORPUSCULAR HEMOGLOBIN 23.6 PG (27.0-31.0); MEAN CORPUSCULAR HGB CONC 31.7 g/dL (33.0-36.5); MEAN CORPUSCULAR VOLUME 74.4 FL (78-98); MEAN PLATELET VOLUME 6.9 FL (7.4-10.4); MONOCYTES # (AUTO) 0.8 X10'3 (0-0.9); MONOCYTES % (AUTO) 4.3 % (2-12); NEUTROPHILS # (AUTO) 16.9 X10'3 (1.8-7.7); NEUTROPHILS % (AUTO) 89.8 % (42-75); PLATELET COUNT 480 X10'3 (140-440); RED BLOOD COUNT 4.01 X10'6 (4.20-5.60); RED CELL DISTRIBUTION WIDTH 17.4 % (11.5-14.5); WHITE BLOOD COUNT 18.8 X10'3 (4.5-11.0)
[2019-03-29 05:14] LABS: ALANINE AMINOTRANSFERASE 13 U/L (12-78); ALBUMIN 2.5 G/DL (3.4-5.0); ALBUMIN/GLOBULIN RATIO 0.6 (1.1-1.5); ALKALINE PHOSPHATASE 66 IU/L (46-116); ANION GAP 4 (8-16); ASPARTATE AMINO TRANSFERASE 5 U/L (10-37); BILIRUBIN,TOTAL 0.1 MG/DL (0.1-1.0); BLOOD UREA NITROGEN 19 MG/DL (7-18); BUN/CREATININE RATIO 21.6 (6.6-38.0); CALCIUM 8.9 MG/DL (8.5-10.1); CHLORIDE 101 MMOL/L (99-107); CREATININE 0.88 MG/DL (0.40-0.90); GLUCOSE 202 MG/DL (70-104); POTASSIUM 3.1 MMOL/L (3.5-5.1); SODIUM 142 MMOL/L (135-145); TOTAL CARBON DIOXIDE 36.7 MMOL/L (24-32); TOTAL PROTEIN 6.9 G/DL (6.4-8.2); eGFR 61 ML/MIN
[2019-03-29 06:00] VITALS: BP 102/49
--- NOTE | 2019-03-29 06:27 | NUR ---
Problems reprioritized. Patient report given, questions answered & plan of care reviewed with Art RN and Vale HENNING.
--- NOTE | 2019-03-29 06:52 | NUR ---
Pt agitation increasing. Pt demanding to leave. We were able to convince her to sit in her chair. Pt more calm.
[2019-03-29] MEDS: methylPREDNISolone sod succ/PF 40mg inj. IV SCH (07:51)
[2019-03-29] MEDS: spironolactone 50 MG tablet PO SCH (07:51)
[2019-03-29] MEDS: carvedilol 6.25mg tablet PO SCH ×2 (07:51→19:24)
[2019-03-29] MEDS: furosemide 40mg tablet PO SCH (07:51)
[2019-03-29] MEDS: insulin Lispro (HumaLOG) vial - multi-dose SQ SCH ×3 (10:20→19:27)
[2019-03-29] MEDS ORDERED: potassium Cl 20 mEq SR tablet PO STA (10:59)
[2019-03-29 11:00] VITALS: BP 101/52
--- NOTE | 2019-03-29 11:54 | NUR ---
Patient in room PCU 3009. I have received report from Art RN and had the opportunity to ask questions and assume patient care. Pt is up in chair receiving breathing tx, with sitter in the room.
[2019-03-29 15:00] VITALS: BP 123/42
[2019-03-29] MEDS: rivaroxaban 20mg tablet PO SCH (17:03)
--- NOTE | 2019-03-29 18:15 | NUR ---
Patient in room PCU 3009. I have received report from Art RN and Vale HENNING and had the opportunity to ask questions and assume patient care.
[2019-03-29 19:00] VITALS: BP 106/54
--- NOTE | 2019-03-29 21:15 | NUR ---
Patient is in reclining chair and refuses to get back in to bed. She states she sleeps in a chair at home is perfectly comfortable.
[2019-03-29] MEDS: QUEtiapine 25mg tablet PO SCH (21:40)
[2019-03-29] MEDS: insulin glargine (Lantus) pen - multi-dose SQ SCH (21:45)
[2019-03-29 23:00] VITALS: BP 110/51
[2019-03-30] MEDS: piperacillin/tazo 4.5gm/100ml 100 ML IV SCH ×3 (00:12→16:20)
[2019-03-30] MEDS: albuterol 2.5 MG/3 ML nebule NEB SCH ×6 (02:56→23:09)
[2019-03-30 03:00] VITALS: BP 97/48
[2019-03-30 06:00] VITALS: BP 105/66
--- NOTE | 2019-03-30 06:00 | NUR ---
Patient in room PCU 3009. I have received report from Yumiko HENNING and had the opportunity to ask questions and assume patient care.
[2019-03-30 06:25] LABS: BASOPHILS # (AUTO) 0.1 X10'3 (0-0.2); BASOPHILS % (AUTO) 0.3 % (0-1); EOSINOPHILS # (AUTO) 0.1 X10'3 (0-0.9); EOSINOPHILS % (AUTO) 0.5 % (0-6); HEMATOCRIT 31.2 % (35.0-45.0); LYMPHOCYTES # (AUTO) 2.4 X10'3 (1.1-4.8); LYMPHOCYTES % (AUTO) 11.7 % (21-51); MEAN PLATELET VOLUME 6.5 FL (7.4-10.4); MONOCYTES # (AUTO) 1.9 X10'3 (0-0.9); MONOCYTES % (AUTO) 9.4 % (2-12); NEUTROPHILS # (AUTO) 15.8 X10'3 (1.8-7.7); NEUTROPHILS % (AUTO) 78.1 % (42-75); PLATELET COUNT 535 X10'3 (140-440); RED BLOOD COUNT 4.16 X10'6 (4.20-5.60); RED CELL DISTRIBUTION WIDTH 17.4 % (11.5-14.5); WHITE BLOOD COUNT 20.2 X10'3 (4.5-11.0)
--- NOTE | 2019-03-30 06:36 | NUR ---
Problems reprioritized. Patient report given, questions answered & plan of care reviewed with Oxana HENNING.
[2019-03-30 06:42] LABS: ALANINE AMINOTRANSFERASE 21 U/L (12-78); ALBUMIN 2.6 G/DL (3.4-5.0); ALBUMIN/GLOBULIN RATIO 0.6 (1.1-1.5); ALKALINE PHOSPHATASE 65 IU/L (46-116); ANION GAP 7 (8-16); ASPARTATE AMINO TRANSFERASE 19 U/L (10-37); BILIRUBIN,TOTAL 0.2 MG/DL (0.1-1.0); BLOOD UREA NITROGEN 21 MG/DL (7-18); BUN/CREATININE RATIO 23.1 (6.6-38.0); CHLORIDE 103 MMOL/L (99-107); CREATININE 0.91 MG/DL (0.40-0.90); GLUCOSE 67 MG/DL (70-104); POTASSIUM 3.2 MMOL/L (3.5-5.1); SODIUM 144 MMOL/L (135-145); eGFR 59 ML/MIN
--- NOTE | 2019-03-30 06:51 | NUR ---
Pt FSBG low, primary RN notified.
[2019-03-30] MEDS: dextrose ORAL solution 15 GM/59 ML bottle PO PRN (06:54)
[2019-03-30] MEDS: spironolactone 50 MG tablet PO SCH (09:24)
[2019-03-30] MEDS: carvedilol 6.25mg tablet PO SCH (09:25)
[2019-03-30] MEDS: furosemide 40mg tablet PO SCH (09:25)
[2019-03-30 09:26] LABS: LARGE PLATELETS FEW; PLATELET ESTIMATE INCREASED
[2019-03-30] MEDS ORDERED: levoFLOXACIN-Levaquin 750MG/D5 150 ML IV SCH (10:05)
[2019-03-30 11:00] VITALS: BP 112/71
[2019-03-30] MEDS: HYDROcodone/acetaminophen 10/325mg tab PO PRN ×2 (13:26→20:01)
[2019-03-30 15:00] VITALS: BP 105/50
[2019-03-30] MEDS: rivaroxaban 20mg tablet PO SCH (16:20)
--- NOTE | 2019-03-30 18:00 | NUR ---
Problems reprioritized. Patient report given, questions answered & plan of care reviewed with Rita HENNING.
--- NOTE | 2019-03-30 18:43 | NUR ---
Patient in room U 3009. I have received report from MILADY White and had the opportunity to ask questions and assume patient care. Addendum: 03/30/19 at 1843 by Corie Streeter RN Amended: Links added.
[2019-03-30 19:00] VITALS: BP 119/74
[2019-03-30] MEDS: insulin Lispro (HumaLOG) vial - multi-dose SQ SCH (19:14)
[2019-03-30] MEDS ORDERED: potassium CL 10mEq/100ml bag 100 ML IV PRN ×2 (19:30)
[2019-03-30] MEDS ORDERED: potassium Cl 20 mEq SR tablet PO PRN (19:30)
[2019-03-30] MEDS: lactobacillus rhamnosus 10,000 MMU CELLS/CAPSULE PO SCH (19:59)
[2019-03-30] MEDS: potassium Cl 20 mEq SR tablet PO PRN (19:59)
[2019-03-30] MEDS: carVEDilol 3.125mg tablet PO SCH (20:00)
[2019-03-30] MEDS: QUEtiapine 25mg tablet PO SCH (21:34)
[2019-03-30] MEDS: insulin glargine (Lantus) pen - multi-dose SQ SCH (21:40)
[2019-03-30 23:00] VITALS: BP 95/51
[2019-03-31] MEDS: piperacillin/tazo 4.5gm/100ml 100 ML IV SCH ×3 (00:28→16:40)
[2019-03-31] MEDS: potassium Cl 20 mEq SR tablet PO PRN (01:31)
[2019-03-31 03:00] VITALS: BP 99/51
[2019-03-31] MEDS: albuterol 2.5 MG/3 ML nebule NEB SCH ×6 (03:22→23:00)
[2019-03-31 05:32] LABS: BASOPHILS # (AUTO) 0.1 X10'3 (0-0.2); BASOPHILS % (AUTO) 0.8 % (0-1); EOSINOPHILS # (AUTO) 0.2 X10'3 (0-0.9); EOSINOPHILS % (AUTO) 0.9 % (0-6); HEMATOCRIT 32.2 % (35.0-45.0); HEMOGLOBIN 10.3 g/dl (12.0-16.0); LYMPHOCYTES # (AUTO) 2.5 X10'3 (1.1-4.8); LYMPHOCYTES % (AUTO) 14.2 % (21-51); MEAN CORPUSCULAR HEMOGLOBIN 23.8 PG (27.0-31.0); MEAN CORPUSCULAR HGB CONC 31.9 g/dL (33.0-36.5); MEAN CORPUSCULAR VOLUME 74.7 FL (78-98); MEAN PLATELET VOLUME 6.3 FL (7.4-10.4); MONOCYTES # (AUTO) 1.8 X10'3 (0-0.9); MONOCYTES % (AUTO) 9.9 % (2-12); NEUTROPHILS # (AUTO) 13.2 X10'3 (1.8-7.7); NEUTROPHILS % (AUTO) 74.2 % (42-75); PLATELET COUNT 523 X10'3 (140-440); RED BLOOD COUNT 4.31 X10'6 (4.20-5.60); RED CELL DISTRIBUTION WIDTH 17.4 % (11.5-14.5); WHITE BLOOD COUNT 17.8 X10'3 (4.5-11.0)
[2019-03-31 05:36] LABS: ALANINE AMINOTRANSFERASE 29 U/L (12-78); ALBUMIN 2.6 G/DL (3.4-5.0); ALBUMIN/GLOBULIN RATIO 0.6 (1.1-1.5); ALKALINE PHOSPHATASE 74 IU/L (46-116); ANION GAP 5 (8-16); ASPARTATE AMINO TRANSFERASE 20 U/L (10-37); BILIRUBIN,TOTAL 0.2 MG/DL (0.1-1.0); BLOOD UREA NITROGEN 19 MG/DL (7-18); BUN/CREATININE RATIO 18.4 (6.6-38.0); CALCIUM 8.8 MG/DL (8.5-10.1); CHLORIDE 103 MMOL/L (99-107); CREATININE 1.03 MG/DL (0.40-0.90); GLUCOSE 113 MG/DL (70-104); POTASSIUM 4.3 MMOL/L (3.5-5.1); SODIUM 141 MMOL/L (135-145); TOTAL PROTEIN 7.1 G/DL (6.4-8.2); eGFR 51 ML/MIN
[2019-03-31 06:00] VITALS: BP 97/58
--- NOTE | 2019-03-31 06:00 | NUR ---
Patient in room PCU 3009. I have received report from Rita HENNING and had the opportunity to ask questions and assume patient care.
--- NOTE | 2019-03-31 06:10 | NUR ---
Problems reprioritized. Patient report given, questions answered & plan of care reviewed with MILADY Daigle. Addendum: 03/31/19 at 0611 by Corie Streeter RN Amended: Links added.
[2019-03-31] MEDS: spironolactone 50 MG tablet PO SCH (07:28)
[2019-03-31] MEDS: furosemide 40mg tablet PO SCH (07:28)
[2019-03-31] MEDS: lactobacillus rhamnosus 10,000 MMU CELLS/CAPSULE PO SCH ×2 (07:28→19:33)
[2019-03-31] MEDS: carVEDilol 3.125mg tablet PO SCH ×2 (07:29→19:33)
[2019-03-31] MEDS: HYDROcodone/acetaminophen 10/325mg tab PO PRN ×2 (07:29→14:11)
[2019-03-31] MEDS: insulin Lispro (HumaLOG) vial - multi-dose SQ SCH ×2 (09:07→19:40)
[2019-03-31 11:00] VITALS: BP 105/71
[2019-03-31 15:00] VITALS: BP 111/45
[2019-03-31] MEDS: rivaroxaban 20mg tablet PO SCH (16:40)
[2019-03-31 18:00] VITALS: BP 113/50
--- NOTE | 2019-03-31 18:00 | NUR ---
Problems reprioritized. Patient report given, questions answered & plan of care reviewed with Zayra HENNING.
--- NOTE | 2019-03-31 18:30 | NUR ---
Patient in room PCU 3009. I have received report from Cindy HENNING and had the opportunity to ask questions and assume patient care.
[2019-03-31] MEDS: insulin glargine (Lantus) pen - multi-dose SQ SCH (21:00)
[2019-03-31] MEDS: QUEtiapine 25mg tablet PO SCH (21:00)
--- NOTE | 2019-03-31 21:00 | NUR ---
pt refused medications even when RN explained about the benefits of the meds. Pt was said "leave me alone" and want RN to get out of the room.
[2019-03-31 23:00] VITALS: BP 105/48
[2019-04-01] MEDS: piperacillin/tazo 4.5gm/100ml 100 ML IV SCH ×3 (00:27→15:19)
[2019-04-01 03:00] VITALS: BP 113/50
[2019-04-01] MEDS: albuterol 2.5 MG/3 ML nebule NEB SCH ×6 (03:00→23:29)
[2019-04-01 06:00] VITALS: BP 99/55
--- NOTE | 2019-04-01 06:00 | NUR ---
Patient in room PCU 3009. I have received report from Zayra HENNING and had the opportunity to ask questions and assume patient care.
--- NOTE | 2019-04-01 06:23 | NUR ---
Problems reprioritized. Patient report given, questions answered & plan of care reviewed with Cindy RN.
[2019-04-01 06:29] LABS: ALKALINE PHOSPHATASE 86 IU/L (46-116); BILIRUBIN,TOTAL 0.4 MG/DL (0.1-1.0); BLOOD UREA NITROGEN 12 MG/DL (7-18); TOTAL PROTEIN 7.5 G/DL (6.4-8.2)
[2019-04-01 06:32] LABS: BASOPHILS # (AUTO) 0.1 X10'3 (0-0.2); BASOPHILS % (AUTO) 0.4 % (0-1); EOSINOPHILS # (AUTO) 0.3 X10'3 (0-0.9); EOSINOPHILS % (AUTO) 1.3 % (0-6); HEMOGLOBIN 11.2 g/dl (12.0-16.0); LYMPHOCYTES # (AUTO) 2.2 X10'3 (1.1-4.8); LYMPHOCYTES % (AUTO) 9.5 % (21-51); MEAN CORPUSCULAR HGB CONC 31.9 g/dL (33.0-36.5); MEAN CORPUSCULAR VOLUME 75.3 FL (78-98); MEAN PLATELET VOLUME 6.6 FL (7.4-10.4); MONOCYTES # (AUTO) 1.7 X10'3 (0-0.9); MONOCYTES % (AUTO) 7.5 % (2-12); NEUTROPHILS # (AUTO) 18.6 X10'3 (1.8-7.7); NEUTROPHILS % (AUTO) 81.3 % (42-75); PLATELET COUNT 556 X10'3 (140-440); RED BLOOD COUNT 4.65 X10'6 (4.20-5.60); RED CELL DISTRIBUTION WIDTH 17.3 % (11.5-14.5); WHITE BLOOD COUNT 22.8 X10'3 (4.5-11.0)
[2019-04-01 07:00] LABS: ALANINE AMINOTRANSFERASE 29 U/L (12-78); ALBUMIN 2.7 G/DL (3.4-5.0); ALBUMIN/GLOBULIN RATIO 0.6 (1.1-1.5); ANION GAP 9 (8-16); ASPARTATE AMINO TRANSFERASE 17 U/L (10-37); BUN/CREATININE RATIO 14.6 (6.6-38.0); CALCIUM 9.3 MG/DL (8.5-10.1); CHLORIDE 102 MMOL/L (99-107); CREATININE 0.82 MG/DL (0.40-0.90); GLUCOSE 139 MG/DL (70-104); POTASSIUM 3.6 MMOL/L (3.5-5.1); SODIUM 140 MMOL/L (135-145); TOTAL CARBON DIOXIDE 28.8 MMOL/L (24-32); eGFR 66 ML/MIN
[2019-04-01] MEDS ORDERED: levoFLOXACIN-Levaquin 750MG/D5 150 ML IV SCH (08:00)
[2019-04-01] MEDS: carVEDilol 3.125mg tablet PO SCH ×2 (08:37→20:00)
[2019-04-01] MEDS: furosemide 40mg tablet PO SCH (08:38)
[2019-04-01] MEDS: spironolactone 50 MG tablet PO SCH (08:38)
[2019-04-01] MEDS: lactobacillus rhamnosus 10,000 MMU CELLS/CAPSULE PO SCH ×2 (08:38→20:45)
[2019-04-01] MEDS: HYDROcodone/acetaminophen 10/325mg tab PO PRN (10:03)
[2019-04-01 11:00] VITALS: BP 108/46
[2019-04-01 15:00] VITALS: BP 115/40
[2019-04-01] MEDS: insulin Lispro (HumaLOG) vial - multi-dose SQ SCH (15:18)
[2019-04-01] MEDS: rivaroxaban 20mg tablet PO SCH (17:52)
[2019-04-01 18:00] VITALS: BP 96/41
--- NOTE | 2019-04-01 18:00 | NUR ---
Patient in room PCU 3009. I have received report from Cindy HENNING and had the opportunity to ask questions and assume patient care.
--- NOTE | 2019-04-01 18:00 | NUR ---
Problems reprioritized. Patient report given, questions answered & plan of care reviewed with Divine HENNING.
[2019-04-01] MEDS: QUEtiapine 25mg tablet PO SCH (20:45)
[2019-04-01] MEDS: insulin glargine (Lantus) pen - multi-dose SQ SCH (21:00)
[2019-04-01 23:00] VITALS: BP 118/46
[2019-04-02] VITALS (7 sets, daily range): BP systolic 100–133; BP diastolic 35–52
[2019-04-02] MEDS: piperacillin/tazo 4.5gm/100ml 100 ML IV SCH ×4 (00:01→23:54)
[2019-04-02] MEDS: albuterol 2.5 MG/3 ML nebule NEB SCH ×6 (03:27→23:00)
[2019-04-02 05:22] LABS: BASOPHILS % (AUTO) 0.3 % (0-1); EOSINOPHILS # (AUTO) 0.4 X10'3 (0-0.9); EOSINOPHILS % (AUTO) 2.6 % (0-6); HEMATOCRIT 29.9 % (35.0-45.0); HEMOGLOBIN 9.6 g/dl (12.0-16.0); LYMPHOCYTES # (AUTO) 2.3 X10'3 (1.1-4.8); LYMPHOCYTES % (AUTO) 14.2 % (21-51); MEAN CORPUSCULAR HEMOGLOBIN 23.7 PG (27.0-31.0); MEAN CORPUSCULAR VOLUME 74.1 FL (78-98); MEAN PLATELET VOLUME 6.4 FL (7.4-10.4); MONOCYTES # (AUTO) 1.5 X10'3 (0-0.9); MONOCYTES % (AUTO) 9.4 % (2-12); NEUTROPHILS # (AUTO) 11.8 X10'3 (1.8-7.7); NEUTROPHILS % (AUTO) 73.5 % (42-75); PLATELET COUNT 451 X10'3 (140-440); RED BLOOD COUNT 4.04 X10'6 (4.20-5.60); RED CELL DISTRIBUTION WIDTH 17.7 % (11.5-14.5); WHITE BLOOD COUNT 16.1 X10'3 (4.5-11.0)
[2019-04-02 05:27] LABS: ALANINE AMINOTRANSFERASE 21 U/L (12-78); ALBUMIN 2.1 G/DL (3.4-5.0); ALBUMIN/GLOBULIN RATIO 0.5 (1.1-1.5); ALKALINE PHOSPHATASE 67 IU/L (46-116); ANION GAP 5 (8-16); ASPARTATE AMINO TRANSFERASE 13 U/L (10-37); BILIRUBIN,TOTAL 0.4 MG/DL (0.1-1.0); BLOOD UREA NITROGEN 8 MG/DL (7-18); BUN/CREATININE RATIO 10.8 (6.6-38.0); CALCIUM 8.8 MG/DL (8.5-10.1); CHLORIDE 105 MMOL/L (99-107); CREATININE 0.74 MG/DL (0.40-0.90); GLUCOSE 125 MG/DL (70-104); POTASSIUM 3.1 MMOL/L (3.5-5.1); SODIUM 141 MMOL/L (135-145); TOTAL CARBON DIOXIDE 31.2 MMOL/L (24-32); TOTAL PROTEIN 6.1 G/DL (6.4-8.2); eGFR 75 ML/MIN
--- NOTE | 2019-04-02 05:40 | NUR ---
Patient did not eat dinner and refused lantus. Slept well most of the night. Sitter at bedside.
--- NOTE | 2019-04-02 06:26 | NUR ---
Problems reprioritized. Patient report given, questions answered & plan of care reviewed with Velma HENNING.
--- NOTE | 2019-04-02 06:30 | NUR ---
Patient in room PCU 3009. I have received report from Divine HENNING and had the opportunity to ask questions and assume patient care. Patient awake in bed. Sitter bedside. All immediate needs met at this time.
[2019-04-02] MEDS: furosemide 40mg tablet PO SCH (08:39)
[2019-04-02] MEDS: carVEDilol 3.125mg tablet PO SCH ×2 (08:39→20:17)
[2019-04-02] MEDS: potassium Cl 20 mEq SR tablet PO PRN ×2 (08:39→17:07)
[2019-04-02] MEDS: spironolactone 50 MG tablet PO SCH (08:39)
[2019-04-02] MEDS: lactobacillus rhamnosus 10,000 MMU CELLS/CAPSULE PO SCH ×2 (08:39→20:17)
[2019-04-02] MEDS: HYDROcodone/acetaminophen 10/325mg tab PO PRN ×4 (09:11→20:51)
--- NOTE | 2019-04-02 09:17 | NUR ---
Patient complains of pain but refused to take PRN norco. Patient combative. Sitter bedside.
--- NOTE | 2019-04-02 10:48 | NUR ---
PER REPORT FROM CYNTHIA PT IS "FINALLY" SLEEPING. REQ TO HOLD TX UNTIL NEXT ROUND. Addendum: 04/02/19 at 1049 by Roya Dawn RT Amended: Links added.
--- NOTE | 2019-04-02 12:13 | NUR ---
Initial: Pt admit w/ SOB likely aspiration PNA hx dementia currently AOx3 and refusing care per EMR. Advanced to mechanical soft/grind all/thin liquids per CASUALTY UNDERWRITER. PO 0% meals past 3 days down from 100% prior. Microcytic anemia from unknown etiology per MD note; MARIELOS d/w RN for Fe labs per MD approval w/ MCV 74.1. LBM 04/01. If low PO continues will meet minimum non-severe malnutrition criteria w/ BLE +2 edema present. Will continue to monitor. Rec: 1. continue mechanical soft/CCHO diet per CASUALTY UNDERWRITER/MD 2. advance to regular diet if low PO persists 3. monitor for ONS needs 4. routine bowel care 5. weekly wts Addendum: 04/02/19 at [address] Amended: Links added.
--- NOTE | 2019-04-02 15:43 | NUR ---
NO TX GIVEN AT REQ OF [facility] PT IS SLEEPING NAD Addendum: 04/02/19 at 1544 by Roya Dawn RT Amended: Links added.
[2019-04-02] MEDS: rivaroxaban 20mg tablet PO SCH (16:46)
--- NOTE | 2019-04-02 18:00 | NUR ---
Patient in room PCU 3009. I have received report from Velma HENNING and had the opportunity to ask questions and assume patient care.
--- NOTE | 2019-04-02 19:05 | NUR ---
Problems reprioritized. Patient report given, questions answered & plan of care reviewed with MILADY Herrera. Patient stable at transfer of care.
[2019-04-02] MEDS: QUEtiapine 25mg tablet PO SCH (20:18)
[2019-04-02] MEDS: vancomycin/NS 1 GM ADD-VANTAGE 250 ML IV SCH (20:44)
[2019-04-02] MEDS: insulin glargine (Lantus) pen - multi-dose SQ SCH (21:00)
[2019-04-03] MEDS: HYDROcodone/acetaminophen 10/325mg tab PO PRN ×3 (00:51→23:01)
[2019-04-03 02:00] VITALS: BP 107/43
[2019-04-03] MEDS: albuterol 2.5 MG/3 ML nebule NEB SCH ×6 (03:00→23:00)
--- NOTE | 2019-04-03 05:40 | NUR ---
Patient slept well tonight, received [place] twice for pain and repositioned every two hours; was pleasant for most of the night.
[2019-04-03 06:00] VITALS: BP 118/36
--- NOTE | 2019-04-03 06:41 | NUR ---
Problems reprioritized. Patient report given, questions answered & plan of care reviewed with Shelby RN.
--- NOTE | 2019-04-03 06:41 | NUR ---
Patient in room PCU 3009. I have received report from MILADY Haskins and had the opportunity to ask questions and assume patient care.
--- NOTE | 2019-04-03 07:21 | NUR ---
Sent to Dr Flores PAGER ID: [phone] MESSAGE: RE: Cyndee Kang [phone]. No labs drawn for today, no order. -Shelby [phone]
[2019-04-03] MEDS: carVEDilol 3.125mg tablet PO SCH ×2 (08:15→19:01)
[2019-04-03] MEDS: lactobacillus rhamnosus 10,000 MMU CELLS/CAPSULE PO SCH ×2 (08:15→19:01)
[2019-04-03] MEDS: spironolactone 50 MG tablet PO SCH (08:15)
[2019-04-03] MEDS: furosemide 40mg tablet PO SCH (08:15)
[2019-04-03] MEDS: piperacillin/tazo 4.5gm/100ml 100 ML IV SCH ×2 (08:18→16:02)
--- NOTE | 2019-04-03 09:18 | NUR ---
Sent to Dr Flores PAGER ID: [phone] MESSAGE: RE: Cyndee Kang [phone]. Can we please get an order for a [place] 5? Pain rating 6/10. I only have an order for [place] 10 for pain 7+. - Shelby [phone]
[2019-04-03] MEDS: acetaminophen 325mg tablet PO PRN (09:24)
[2019-04-03 09:28] LABS: BASOPHILS # (AUTO) 0.1 X10'3 (0-0.2); BASOPHILS % (AUTO) 0.3 % (0-1); EOSINOPHILS # (AUTO) 0.6 X10'3 (0-0.9); EOSINOPHILS % (AUTO) 3.2 % (0-6); HEMATOCRIT 31.1 % (35.0-45.0); HEMOGLOBIN 9.7 g/dl (12.0-16.0); LYMPHOCYTES # (AUTO) 1.9 X10'3 (1.1-4.8); LYMPHOCYTES % (AUTO) 10.2 % (21-51); MEAN CORPUSCULAR HEMOGLOBIN 23.6 PG (27.0-31.0); MEAN CORPUSCULAR HGB CONC 31.1 g/dL (33.0-36.5); MEAN CORPUSCULAR VOLUME 75.9 FL (78-98); MEAN PLATELET VOLUME 6.6 FL (7.4-10.4); MONOCYTES # (AUTO) 1.4 X10'3 (0-0.9); MONOCYTES % (AUTO) 7.3 % (2-12); NEUTROPHILS # (AUTO) 14.9 X10'3 (1.8-7.7); PLATELET COUNT 465 X10'3 (140-440); WHITE BLOOD COUNT 18.9 X10'3 (4.5-11.0)
[2019-04-03 09:44] LABS: ALANINE AMINOTRANSFERASE 17 U/L (12-78); ALBUMIN 2.3 G/DL (3.4-5.0); ALBUMIN/GLOBULIN RATIO 0.5 (1.1-1.5); ALKALINE PHOSPHATASE 68 IU/L (46-116); ANION GAP 5 (8-16); ASPARTATE AMINO TRANSFERASE 7 U/L (10-37); BILIRUBIN,TOTAL 0.3 MG/DL (0.1-1.0); BLOOD UREA NITROGEN 12 MG/DL (7-18); BUN/CREATININE RATIO 18.2 (6.6-38.0); CALCIUM 9.1 MG/DL (8.5-10.1); CHLORIDE 105 MMOL/L (99-107); CREATININE 0.66 MG/DL (0.40-0.90); GLUCOSE 111 MG/DL (70-104); POTASSIUM 3.6 MMOL/L (3.5-5.1); SODIUM 142 MMOL/L (135-145); TOTAL CARBON DIOXIDE 31.7 MMOL/L (24-32); TOTAL PROTEIN 6.6 G/DL (6.4-8.2); eGFR 85 ML/MIN
[2019-04-03 11:00] VITALS: BP 97/44
[2019-04-03 15:00] VITALS: BP 107/45
--- NOTE | 2019-04-03 15:06 | NUR ---
no tx given . pt sleeping nad Addendum: 04/03/19 at 1506 by Roya Dawn RT Amended: Links added.
[2019-04-03] MEDS: rivaroxaban 20mg tablet PO SCH (17:34)
--- NOTE | 2019-04-03 18:00 | NUR ---
Patient in room PCU 3009. I have received report from Shelby HENNING and had the opportunity to ask questions and assume patient care.
--- NOTE | 2019-04-03 18:17 | NUR ---
Problems reprioritized. Patient report given, questions answered & plan of care reviewed with MILADY Haskins.
[2019-04-03 19:00] VITALS: BP 110/34
[2019-04-03] MEDS: insulin Lispro (HumaLOG) vial - multi-dose SQ SCH (19:06)
[2019-04-03] MEDS: QUEtiapine 25mg tablet PO SCH (20:05)
[2019-04-03] MEDS: insulin glargine (Lantus) pen - multi-dose SQ SCH (21:00)
[2019-04-03] MEDS: vancomycin/NS 1 GM ADD-VANTAGE 250 ML IV SCH (21:14)
--- NOTE | 2019-04-03 22:42 | NUR ---
Left AC PIV has been discontinued due to leaking. Four attempts have been taken for a new PIV but patient is not compliant and pulls them out. Vancomycin was not able to finish. Will attempt again once patient is calm and ready.
[2019-04-03 22:48] VITALS: BP 125/65
--- NOTE | 2019-04-03 23:35 | NUR ---
Message sent to Pharmacy:Vancomycin started at 2113 and stopped at 2199 due to IV started leaking. Will send another message when infusion has resumed.
[2019-04-04] VITALS (7 sets, daily range): BP systolic 100–121; BP diastolic 36–58
[2019-04-04] MEDS: dextrose ORAL solution 15 GM/59 ML bottle PO PRN ×2 (00:08→00:31)
--- NOTE | 2019-04-04 00:52 | NUR ---
Patient had diaphoretic forearms, checked blood sugar, value of 43 mg/dl. 30G of Glucose shot was given to the patient to drink, She was lethargic but able to answer questions. Blood sugar of 50 after 15 min of treatment. Blood sugar 67 after 30 min, then gave 15G of Glucose shot for the patient to drink. Patient's scalp was sweating and the patient mentioned she was starting to feel cooler, patient began to perk up and answer questions more readily. Blood sugar of 110 after second treatment. Patient is feeling much better and stated that she was ready to go back to sleep. Will continue to monitor patient.
[2019-04-04] MEDS: piperacillin/tazo 4.5gm/100ml 100 ML IV SCH ×4 (02:30→23:40)
[2019-04-04] MEDS: albuterol 2.5 MG/3 ML nebule NEB SCH ×6 (03:00→23:30)
--- NOTE | 2019-04-04 06:30 | NUR ---
Problems reprioritized. Patient report given, questions answered & plan of care reviewed with Cheryl HENNING.
--- NOTE | 2019-04-04 06:31 | NUR ---
Patient in room PCU 3009. I have received report from Divine HENNING and had the opportunity to ask questions and assume patient care.
[2019-04-04] MEDS: carVEDilol 3.125mg tablet PO SCH ×2 (08:18→20:20)
[2019-04-04] MEDS: furosemide 40mg tablet PO SCH (08:18)
[2019-04-04] MEDS: spironolactone 50 MG tablet PO SCH (08:18)
[2019-04-04] MEDS: lactobacillus rhamnosus 10,000 MMU CELLS/CAPSULE PO SCH ×2 (08:18→20:20)
[2019-04-04] MEDS: HYDROcodone/acetaminophen 10/325mg tab PO PRN (09:04)
[2019-04-04] MEDS: insulin Lispro (HumaLOG) vial - multi-dose SQ SCH ×2 (09:25→18:24)
[2019-04-04 11:45] LABS: BASOPHILS # (AUTO) 0.1 X10'3 (0-0.2); BASOPHILS % (AUTO) 0.6 % (0-1); EOSINOPHILS # (AUTO) 0.6 X10'3 (0-0.9); HEMATOCRIT 29.1 % (35.0-45.0); HEMOGLOBIN 9.3 g/dl (12.0-16.0); LYMPHOCYTES % (AUTO) 12.2 % (21-51); MEAN CORPUSCULAR HGB CONC 31.9 g/dL (33.0-36.5); MEAN CORPUSCULAR VOLUME 75.1 FL (78-98); MEAN PLATELET VOLUME 6.5 FL (7.4-10.4); MONOCYTES # (AUTO) 1.2 X10'3 (0-0.9); MONOCYTES % (AUTO) 7.7 % (2-12); NEUTROPHILS # (AUTO) 12.1 X10'3 (1.8-7.7); NEUTROPHILS % (AUTO) 75.5 % (42-75); PLATELET COUNT 445 X10'3 (140-440); RED BLOOD COUNT 3.87 X10'6 (4.20-5.60); RED CELL DISTRIBUTION WIDTH 17.6 % (11.5-14.5); WHITE BLOOD COUNT 16.1 X10'3 (4.5-11.0)
[2019-04-04 11:59] LABS: ALANINE AMINOTRANSFERASE 15 U/L (12-78); ALBUMIN 2.2 G/DL (3.4-5.0); ALBUMIN/GLOBULIN RATIO 0.5 (1.1-1.5); ALKALINE PHOSPHATASE 69 IU/L (46-116); ANION GAP 5 (8-16); ASPARTATE AMINO TRANSFERASE 8 U/L (10-37); BILIRUBIN,TOTAL 0.1 MG/DL (0.1-1.0); BLOOD UREA NITROGEN 9 MG/DL (7-18); BUN/CREATININE RATIO 14.3 (6.6-38.0); CALCIUM 8.6 MG/DL (8.5-10.1); CHLORIDE 104 MMOL/L (99-107); CREATININE 0.63 MG/DL (0.40-0.90); GLUCOSE 94 MG/DL (70-104); SODIUM 144 MMOL/L (135-145); TOTAL CARBON DIOXIDE 34.7 MMOL/L (24-32); TOTAL PROTEIN 6.4 G/DL (6.4-8.2); eGFR 90 ML/MIN
--- NOTE | 2019-04-04 12:09 | NUR ---
paged Dr Flores regarding critical lab of K 3.0 PAGER ID: [phone] MESSAGE: Cheryl [phone]. RE Agustin Kang Lab reported critical K of 3.0. Can I have orders for replacement protocol? Thank you
[2019-04-04] MEDS ORDERED: potassium Cl 20 mEq SR tablet PO PRN (12:35)
[2019-04-04] MEDS ORDERED: potassium CL 10mEq/100ml bag 100 ML IV PRN (12:35)
[2019-04-04] MEDS: potassium Cl 20 mEq SR tablet PO PRN ×3 (12:50→21:30)
[2019-04-04] MEDS: rivaroxaban 20mg tablet PO SCH (16:17)
--- NOTE | 2019-04-04 18:13 | NUR ---
Problems reprioritized. Patient report given, questions answered & plan of care reviewed with Divine HENNING.
[2019-04-04] MEDS ORDERED: iohexol 300mg/ml 100ml inj. ONE (19:45)
--- NOTE | 2019-04-04 20:06 | NUR ---
PAGER ID: [phone] MESSAGE: [phone] Cyndee Kang. Patient went down for the Pelvic CT, once down in CT she emphatically refused the exam. Divine HENNING [phone]
--- NOTE | 2019-04-04 20:15 | NUR ---
I talked to the patient about the importance of the Pelvic CT exam, her high WBC count, and the possibility of an abscess. Patient stated that she doesn't care and still refuses to try again. 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 The patient also added that "even if you put me down to do it, I won't let you fiddle around".
[2019-04-04] MEDS: QUEtiapine 25mg tablet PO SCH (20:20)
[2019-04-04] MEDS ORDERED: VANCOMYCIN LEVEL IV ONE (20:30)
[2019-04-04] MEDS: insulin glargine (Lantus) pen - multi-dose SQ SCH (21:00)
[2019-04-04] MEDS ORDERED: vancomycin/NS 1 GM ADD-VANTAGE 250 ML IV SCH (21:00)
--- NOTE | 2019-04-04 23:21 | NUR ---
Patient in room U 3009. I have received report from Cheryl HENNING and had the opportunity to ask questions and assume patient care. Addendum: 04/04/19 at 5962 by Divine Bruno RN Recieved patient report at the beginning of the shift at 1800.
[2019-04-05 02:05] VITALS: BP 116/62
[2019-04-05] MEDS: HYDROcodone/acetaminophen 10/325mg tab PO PRN (02:57)
[2019-04-05] MEDS: albuterol 2.5 MG/3 ML nebule NEB SCH ×3 (03:00→11:13)
[2019-04-05 05:55] LABS: ALANINE AMINOTRANSFERASE 15 U/L (12-78); ALBUMIN 2.3 G/DL (3.4-5.0); ALBUMIN/GLOBULIN RATIO 0.5 (1.1-1.5); ALKALINE PHOSPHATASE 67 IU/L (46-116); ANION GAP 4 (8-16); ASPARTATE AMINO TRANSFERASE 11 U/L (10-37); BILIRUBIN,TOTAL 0.2 MG/DL (0.1-1.0); BLOOD UREA NITROGEN 7 MG/DL (7-18); BUN/CREATININE RATIO 11.1 (6.6-38.0); CALCIUM 8.9 MG/DL (8.5-10.1); CHLORIDE 107 MMOL/L (99-107); CREATININE 0.63 MG/DL (0.40-0.90); GLUCOSE 112 MG/DL (70-104); MAGNESIUM 1.8 MG/DL (1.5-2.4); POTASSIUM 4.5 MMOL/L (3.5-5.1); SODIUM 141 MMOL/L (135-145); TOTAL CARBON DIOXIDE 30.1 MMOL/L (24-32); TOTAL PROTEIN 6.5 G/DL (6.4-8.2); eGFR 90 ML/MIN
[2019-04-05 06:01] LABS: BASOPHILS # (AUTO) 0.1 X10'3 (0-0.2); BASOPHILS % (AUTO) 0.8 % (0-1); EOSINOPHILS # (AUTO) 0.7 X10'3 (0-0.9); EOSINOPHILS % (AUTO) 5.8 % (0-6); HEMATOCRIT 28.4 % (35.0-45.0); LYMPHOCYTES # (AUTO) 2.5 X10'3 (1.1-4.8); LYMPHOCYTES % (AUTO) 19.6 % (21-51); MEAN CORPUSCULAR HGB CONC 31.8 g/dL (33.0-36.5); MEAN CORPUSCULAR VOLUME 75.6 FL (78-98); MEAN PLATELET VOLUME 6.9 FL (7.4-10.4); MONOCYTES # (AUTO) 1.2 X10'3 (0-0.9); MONOCYTES % (AUTO) 9.8 % (2-12); NEUTROPHILS # (AUTO) 8.1 X10'3 (1.8-7.7); PLATELET COUNT 452 X10'3 (140-440); RED BLOOD COUNT 3.75 X10'6 (4.20-5.60); RED CELL DISTRIBUTION WIDTH 17.7 % (11.5-14.5); WHITE BLOOD COUNT 12.7 X10'3 (4.5-11.0)
--- NOTE | 2019-04-05 06:10 | NUR ---
Problems reprioritized. Patient report given, questions answered & plan of care reviewed with Cheryl HENNING.
[2019-04-05 06:30] VITALS: BP 114/47
--- NOTE | 2019-04-05 06:30 | NUR ---
Patient in room PCU 3009. I have received report from Divine HENNING and had the opportunity to ask questions and assume patient care.
[2019-04-05] MEDS: lactobacillus rhamnosus 10,000 MMU CELLS/CAPSULE PO SCH (07:26)
[2019-04-05] MEDS: furosemide 40mg tablet PO SCH (07:26)
[2019-04-05] MEDS: carVEDilol 3.125mg tablet PO SCH (07:26)
[2019-04-05] MEDS: spironolactone 50 MG tablet PO SCH (07:26)
[2019-04-05] MEDS: piperacillin/tazo 4.5gm/100ml 100 ML IV SCH (07:26)
[2019-04-05] MEDS: acetaminophen 325mg tablet PO PRN (08:56)
--- NOTE | 2019-04-05 09:26 | NUR ---
Reassessment: Pt to get CT to r/o abscess per MD notes. Pt s/p BSS this morning with ST recs to continue current diet d/t patient tolerating. Documented PO intake significantly increased with average 75% PO intake since dinner 04/03 however previously 0-25%. D/w RN to d/c CHO controlled diet per MD approval to increase food options. Likely PO intake will decline again given dementia and hx of being resistive to care during admission, recommend Ensure Enlive BID with breakfast and dinner to provide additional protein for wound healing/skin integrity and hopefully optimize PO intake. [facility] 04/04. Will continue to follow. Rec: 1. continue mechanical soft/CCHO diet per HEALTH INFORMATION DIRECTOR/MD 2. advance to regular diet if low PO persists 3. [facility] 4. routine bowel care 5. weekly wts Addendum: 04/05/19 at [address] Amended: Links added.
[2019-04-05 11:00] VITALS: BP 102/53
[2019-04-05] MEDS ORDERED: LORA0.5T PO (11:57)
[2019-04-05] MEDS ORDERED: LEVO750T21 PO (11:57)
[2019-04-05] MEDS ORDERED: QUET25TA34 PO (12:01)
[2019-04-05] MEDS ORDERED: AMOX-580 PO (12:01)
--- NOTE | 2019-04-05 14:10 | NUR ---
Per MD, patient stable for discharge back home. Case management established home health nurse and behavioral health to come visit patient and family at home, starting tomorrow 04/06/19. IV discontinued with catheter intact, and tele monitor removed. New prescriptions called into [facility] per family and patient request. Discharge wound photos taken. Patient escorted via wheelchair accompanied by hospital staff and transported home via private vehicle.
[2019-04-05] MEDS ORDERED: lactose-reduced food (Ensure Enlive) - 237ml bottle PO SCH (17:30)
== END 2019-04-05 14:26 | disposition home health service (06) | DRG 871 ==
LOC: ER 22:09 → PCU 3S 03-28 05:24 → CMPBEDREQ 03-28 05:42
PROVIDERS: ADMIT Internal Medicine; ATTEND Family Medicine
PROC: 5A09357 Assistance with Respiratory Ventilation, Less than 24 Consecutive Hours, Continuous Positive Airway Pressure (ICD-10-PCS; principal; 2019-03-28)
DX: A41.9 Sepsis, unspecified organism (principal); L89.93 Pressure ulcer of unspecified site, stage 3; J69.0 Pneumonitis due to inhalation of food and vomit; J96.01 Acute respiratory failure with hypoxia; J96.02 Acute respiratory failure with hypercapnia; E43 Unspecified severe protein-calorie malnutrition; J44.1 Chronic obstructive pulmonary disease with (acute) exacerbation; N17.9 Acute kidney failure, unspecified; D50.9 Iron deficiency anemia, unspecified; I48.0 Paroxysmal atrial fibrillation; G30.9 Alzheimer's disease, unspecified; F02.80 Dementia in other diseases classified elsewhere, unspecified severity, without behavioral disturbance, psychotic disturbance, mood disturbance, and anxiety; E11.9 Type 2 diabetes mellitus without complications; I50.9 Heart failure, unspecified; L89.152 Pressure ulcer of sacral region, stage 2; Z88.6 Allergy status to analgesic agent; Z90.49 Acquired absence of other specified parts of digestive tract; Z90.710 Acquired absence of both cervix and uterus; Z87.891 Personal history of nicotine dependence; Z79.01 Long term (current) use of anticoagulants; Z68.27 Body mass index [BMI] 27.0-27.9, adult; Z99.3 Dependence on wheelchair
CPT/HCPCS: 36415; 36600; 71045; 80048; 80053; 82803; 82948; 83036; 83605; 83735; 83880; 84100; 84145; 84484; 85018; 85025; 85610; 85651; 85730; 87040; 87081; 92508; 92616; 93005; 94640; 94660; 94760; 96365; 96375; 97161; 97530; 99291; G0378; J0456; J0696; J1815; J1940; J1956; J2060; J2543; J2920; J2930; J3370; J3490; Q9967

== ENCOUNTER 2019-05-17 06:47 | Inpatient (IN) | payer MEDICARE, MEDICAID ==
[~2019-05-17] VITALS: Ht 167.6 cm; Wt 68.0 kg
[~2019-05-17 06:47] MED LIST changes: -FURO40TA4 PO; +QUET25TA34 PO; +TORS20TA3 PO
[2019-05-17] MEDS ORDERED: diltiazem 5mg/ml 5ml inj. IV ONE ×2 (07:05→07:45)
[2019-05-17] MEDS ORDERED: diltiazem-D5W 125mg/125ml 125 ML IV SCH (07:45)
[2019-05-17 07:49] LABS: BASOPHILS # (AUTO) 0.2 X10'3 (0-0.2); BASOPHILS % (AUTO) 0.6 % (0-1); EOSINOPHILS % (AUTO) 0.1 % (0-6); HEMOGLOBIN 9.8 g/dl (12.0-16.0); LYMPHOCYTES # (AUTO) 1.4 X10'3 (1.1-4.8); LYMPHOCYTES % (AUTO) 4.7 % (21-51); MEAN CORPUSCULAR HEMOGLOBIN 23.3 PG (27.0-31.0); MEAN CORPUSCULAR HGB CONC 31.5 g/dL (33.0-36.5); MEAN CORPUSCULAR VOLUME 73.8 FL (78-98); MEAN PLATELET VOLUME 6.8 FL (7.4-10.4); MONOCYTES # (AUTO) 1.8 X10'3 (0-0.9); MONOCYTES % (AUTO) 6.1 % (2-12); NEUTROPHILS # (AUTO) 25.9 X10'3 (1.8-7.7); NEUTROPHILS % (AUTO) 88.5 % (42-75); PLATELET COUNT 543 X10'3 (140-440)
[2019-05-17] MEDS ORDERED: diltiazem-NS 100mg/100ml 100 ML IV SCH (07:49)
[2019-05-17 07:55] LABS: WHITE BLOOD COUNT 29.2 X10'3 (4.5-11.0)
[2019-05-17] MEDS ORDERED: CefTRIAXone 2gm/D5W 50ml 50 ML IV ONE (07:55)
[2019-05-17 08:04] LABS: ALANINE AMINOTRANSFERASE 15 U/L (12-78); ALBUMIN 2.9 G/DL (3.4-5.0); ALBUMIN/GLOBULIN RATIO 0.6 (1.1-1.5); ALKALINE PHOSPHATASE 88 IU/L (46-116); ANION GAP 9 (8-16); ASPARTATE AMINO TRANSFERASE 12 U/L (10-37); BILIRUBIN,TOTAL 0.4 MG/DL (0.1-1.0); BLOOD UREA NITROGEN 19 MG/DL (7-18); BUN/CREATININE RATIO 19.4 (6.6-38.0); CALCIUM 10.2 MG/DL (8.5-10.1); CHLORIDE 97 MMOL/L (99-107); CREATININE 0.98 MG/DL (0.40-0.90); GLUCOSE 162 MG/DL (70-104); POTASSIUM 3.7 MMOL/L (3.5-5.1); SODIUM 138 MMOL/L (135-145); TOTAL PROTEIN 8.1 G/DL (6.4-8.2); eGFR 54 ML/MIN
[2019-05-17 08:07] LABS: PARTIAL THROMBOPLASTIN TIME 45 SECONDS (22-32)
[2019-05-17 08:16] LABS: ANISOCYTOSIS 1+; MICROCYTOSIS 1+; PLATELET ESTIMATE INCREASED; POLYCHROMASIA FEW; TOTAL CELLS COUNTED 100
[2019-05-17] MEDS ORDERED: normal saline 1000ML IV soln IVB ONE (08:45)
[2019-05-17] MEDS ORDERED: levoFLOXACIN-Levaquin 750MG/D5 150 ML IV ONE (08:55)
--- NOTE | 2019-05-17 09:22 | NUR ---
CARDIZEM TITRATED TO 10MG/HR, HEART RATE CONTINUES TO BE 149 BPM. BP IS 113/62 MAP: 73
--- NOTE | 2019-05-17 10:14 | NUR ---
DAUGHTER: SONIYA CELLPHONE: [phone] HOUSE: [phone]
--- NOTE | 2019-05-17 10:26 | NUR ---
dr. maria paged regarding, HR in the 140s and BP in 98/46.
[2019-05-17] MEDS ORDERED: normal saline 1000ml 1,000 ML IV SCH (10:30)
[2019-05-17 10:40] LABS: CLARITY,URINE CLOUDY (Clear); COLOR,URINE YELLOW (Yellow); GLUCOSE, URINE NEGATIVE (Neg); KETONES,URINE NEGATIVE (Neg); LEUKOCYTE ESTERASE ,URINE NEGATIVE (Neg); NITRITES, URINE NEGATIVE (Neg); OCCULT BLOOD,URINE NEGATIVE (Neg); PH,URINE 5.5 (4.8-8.0); PROTEIN,URINE NEGATIVE (Neg); UA COLLECTION TYPE STRAIGHT CATH; UROBILINOGEN,URINE 0.2 E.U/dL (0.2-1.0)
[2019-05-17] MEDS ORDERED: potassium CL 10mEq/100ml bag 100 ML IV PRN ×2 (10:40)
[2019-05-17] MEDS ORDERED: magnesium 4gm in 100ml NS 100 ML IV PRN (10:40)
[2019-05-17] MEDS ORDERED: ondansetron/PF 4mg/2ml inj IV PRN (10:40)
[2019-05-17] MEDS ORDERED: potassium Cl 20 mEq SR tablet PO PRN (10:40)
[2019-05-17] MEDS ORDERED: magnesium 2GM in 50ml NS 50 ML IV PRN (10:40)
[2019-05-17] MEDS ORDERED: magnesium Cl slow-release 64mg tablet PO PRN (10:40)
[2019-05-17] MEDS ORDERED: glucagon, human recombinant 1mg kit SUBCUT PRN (10:40)
[2019-05-17] MEDS ORDERED: docusate sod 100mg capsule PO PRN (10:40)
[2019-05-17] MEDS ORDERED: ipratropium/albuterol 3ml nebule NEB PRN (10:40)
[2019-05-17] MEDS ORDERED: acetaminophen 325mg tablet PO PRN (10:40)
[2019-05-17] MEDS ORDERED: dextrose ORAL solution 15 GM/59 ML bottle PO PRN ×2 (10:40)
[2019-05-17] MEDS ORDERED: mag hydrox/Alum hydrox/simeth 30ml oral suspension PO PRN (10:40)
[2019-05-17] MEDS ORDERED: MESSAGE TO PHARMACY PO ONE (10:40)
[2019-05-17] MEDS ORDERED: dextrose 50%-water 50ml dispensing syringe IV PRN ×2 (10:40)
[2019-05-17 10:48] LABS: HYALINE CASTS 0-3 /LPF (NEGATIVE); SQUAMOUS EPITHELIAL CELL,UR MANY /LPF (FEW)
[2019-05-17 10:49] LABS: BACTERIA,URINE 1+ /HPF (Neg); RBC,URINE 0-2 /HPF (0-2); WBC,URINE 0-4 /HPF (0-4)
--- NOTE | 2019-05-17 11:00 | NUR ---
SPOKE TO HOSPITALIST REGARDING PT'S BNP BEING ELEVATED AND HE STILL SAID TO GIVE THE FLUIDS.
[2019-05-17] MEDS ORDERED: digoxin 250mcg/ml 2ml ampule IV ONE (11:45)
--- NOTE | 2019-05-17 11:45 | NUR ---
paged hospitalist regarding pt's bp of 94/45 map of 63, HR: 122. Hospitalist is aware of pt's bnp and meds. titrated cardizem down to 5mg
[2019-05-17] MEDS ORDERED: QUET25TA PO (12:16)
[2019-05-17] MEDS ORDERED: LORA5TAB9 PO (12:19)
--- NOTE | 2019-05-17 12:40 | NUR ---
PAGER ID: [phone] MESSAGE: Rm [id number], Pearl. Patient got up to the floor and is currently in Sinus Tach. Do you want to continue the Cardizem drip? Mary [phone]
[2019-05-17] MEDS: carVEDilol 3.125mg tablet PO SCH ×2 (13:41→20:35)
[2019-05-17] MEDS: normal saline 1000ml 1,000 ML IV SCH ×2 (13:50→22:31)
[2019-05-17 15:00] VITALS: BP 92/60
[2019-05-17] MEDS ORDERED: cefepime 1GM in D5W 50mL 50 ML IV SCH (16:00)
--- NOTE | 2019-05-17 16:09 | NUR ---
promotional table spacer PAGER ID: [phone] MESSAGE: Adolfo [id number]. Patient is c/o headache can I have an order for Tylenol. Mary [phone]
[2019-05-17] MEDS: rivaroxaban 20mg tablet PO SCH (16:59)
[2019-05-17 18:00] VITALS: BP 110/78
--- NOTE | 2019-05-17 18:24 | NUR ---
Problems reprioritized. Patient report given, questions answered & plan of care reviewed with Eliz HENNING. Patient stable at transfer of care.
[2019-05-17] MEDS: cefepime 1GM/NS ADD-VANTAGE 100 ML IV SCH (18:45)
[2019-05-17] MEDS: loratadine 10mg tablet PO SCH (20:35)
[2019-05-17] MEDS: QUEtiapine 25mg tablet PO SCH (20:36)
[2019-05-17] MEDS: budesonide 0.5mg/2ml UD nebule IH SCH (20:37)
[2019-05-17] MEDS: albuterol 2.5 MG/3 ML nebule NEB PRN (20:38)
[2019-05-17] MEDS: insulin glargine (Lantus) pen - multi-dose SQ SCH (21:00)
[2019-05-17 22:00] VITALS: BP 98/60
[2019-05-18] VITALS (7 sets, daily range): BP systolic 90–128; BP diastolic 50–76
[2019-05-18] MEDS: cefepime 1GM/NS ADD-VANTAGE 100 ML IV SCH ×3 (00:17→16:22)
[2019-05-18 05:09] LABS: BASOPHILS # (AUTO) 0.1 X10'3 (0-0.2); BASOPHILS % (AUTO) 0.3 % (0-1); EOSINOPHILS # (AUTO) 0.2 X10'3 (0-0.9); EOSINOPHILS % (AUTO) 1.3 % (0-6); HEMATOCRIT 24.6 % (35.0-45.0); LYMPHOCYTES # (AUTO) 1.7 X10'3 (1.1-4.8); LYMPHOCYTES % (AUTO) 9.4 % (21-51); MEAN CORPUSCULAR HEMOGLOBIN 24.2 PG (27.0-31.0); MEAN CORPUSCULAR HGB CONC 32.4 g/dL (33.0-36.5); MEAN CORPUSCULAR VOLUME 74.7 FL (78-98); MEAN PLATELET VOLUME 6.8 FL (7.4-10.4); MONOCYTES # (AUTO) 1.4 X10'3 (0-0.9); NEUTROPHILS # (AUTO) 14.3 X10'3 (1.8-7.7); PLATELET COUNT 375 X10'3 (140-440); RED BLOOD COUNT 3.29 X10'6 (4.20-5.60); RED CELL DISTRIBUTION WIDTH 17.9 % (11.5-14.5); WHITE BLOOD COUNT 17.6 X10'3 (4.5-11.0)
[2019-05-18 05:22] LABS: ALANINE AMINOTRANSFERASE 10 U/L (12-78); ALBUMIN/GLOBULIN RATIO 0.5 (1.1-1.5); ALKALINE PHOSPHATASE 73 IU/L (46-116); ANION GAP 8 (8-16); ASPARTATE AMINO TRANSFERASE 11 U/L (10-37); BILIRUBIN,TOTAL 0.2 MG/DL (0.1-1.0); BLOOD UREA NITROGEN 11 MG/DL (7-18); BUN/CREATININE RATIO 15.5 (6.6-38.0); CALCIUM 8.4 MG/DL (8.5-10.1); CHLORIDE 105 MMOL/L (99-107); CREATININE 0.71 MG/DL (0.40-0.90); GLUCOSE 95 MG/DL (70-104); MAGNESIUM 1.7 MG/DL (1.5-2.4); POTASSIUM 3.1 MMOL/L (3.5-5.1); SODIUM 141 MMOL/L (135-145); TOTAL CARBON DIOXIDE 28.2 MMOL/L (24-32); eGFR 78 ML/MIN
[2019-05-18] MEDS: potassium Cl 20 mEq SR tablet PO PRN ×3 (05:36→16:21)
[2019-05-18] MEDS: acetaminophen 325mg tablet PO PRN (05:46)
--- NOTE | 2019-05-18 06:07 | NUR ---
Orientee Medication Administration: For this medication-pass time frame, all medication were reviewed, dispensed, administered and documented per hospital policy by Ashleigh HENNING. Orientee documentation: I have reviewed interventions, assessments performed and documented by Ashleigh HENNING.
--- NOTE | 2019-05-18 06:20 | NUR ---
Problems reprioritized. Patient report given, questions answered & plan of care reviewed with Corbin HENNING.
--- NOTE | 2019-05-18 06:21 | NUR ---
Patient in room PCU 3025. I have received report from MILADY Wellington and had the opportunity to ask questions and assume patient care.
[2019-05-18] MEDS: normal saline 1000ml 1,000 ML IV SCH ×3 (06:31→22:31)
[2019-05-18] MEDS: budesonide 0.5mg/2ml UD nebule IH SCH ×2 (07:08→19:09)
[2019-05-18] MEDS: albuterol 2.5 MG/3 ML nebule NEB PRN (07:09)
[2019-05-18] MEDS: carVEDilol 3.125mg tablet PO SCH ×2 (07:42→21:26)
[2019-05-18] MEDS ORDERED: rivaroxaban 20mg tablet PO SCH (08:00)
[2019-05-18] MEDS ORDERED: spironolactone 50 MG tablet PO SCH (08:00)
[2019-05-18] MEDS: K and/or MAG REPLACEMENT MC SCH (08:02)
[2019-05-18] MEDS: loratadine 10mg tablet PO SCH ×2 (08:57→21:25)
--- NOTE | 2019-05-18 09:50 | NUR ---
Pt c/o non-radiating central CP that she states is 10/10, worse upon inspiration. Notified MD and following protocol, STAT EKG ordered. VS HR 109, RR 25, SpO2 97 on 4L, BP 122/62 manual on L arm.
[2019-05-18] MEDS ORDERED: vancomycin/NS 1 GM ADD-VANTAGE 250 ML IV SCH (12:00)
[2019-05-18] MEDS: vancomycin/NS 1 GM ADD-VANTAGE 250 ML IV SCH (12:10)
[2019-05-18] MEDS ORDERED: HYDROcodone/acetaminophen 5mg/325mg tablet PO PRN (12:30)
[2019-05-18] MEDS: HYDROcodone/acetaminophen 10/325mg tab PO PRN (13:05)
[2019-05-18] MEDS: methylPREDNISolone sod succ 125mg/2ml vial IV SCH ×2 (13:06→16:22)
--- NOTE | 2019-05-18 14:50 | NUR ---
PRESSURE ULCER EDUCATION: DEFINITION: A pressure ulcer is an area of skin that breaks down when you stay in one position too long. The constant pressure against the skin reduces the blood flow to that area and the affected tissue dies. CAUSES: "Being bedridden or in a wheelchair "Fragile skin "Having a chronic condition, such as diabetes or vascular disease "Inability to move certain parts of your body without assistance "Older age "Incontinence of urine or stool SYMPTOMS: "A reddened area that DOES NOT turn white when pressed on - this can be the beginning of a pressure ulcer "A blister, deep sore or a crater - these can be advanced pressure ulcers FIRST AID: "Relieve the pressure on this area "Keep the area clean and dry "Call your primary doctor if you see any of the above symptoms "DO NOT massage the area "DO NOT use a donut shaped or ring shaped pillow- these actually interfere with the blood flow and cause complications PREVENTION: "Check for pressure ulcers everyday "Change position at least every two hours to relieve pressure "Use items that help relieve pressure- pillows, sheepskin, foam padding, and powders. "Keep skin clean and dry "Eat healthy well balanced meals "Exercise daily IF YOU SEE ANY OF THESE SYMPTOMS WHILE IN THE HOSPITAL - TELL YOUR NURSE IMMEDIATELY. IF YOU SEE ANY OF THESE SYMPTOMS WHILE AT HOME OR HAVE ANY QUESTIONS OR CONCERNS ABOUT PRESSURE ULCERS - CALL YOUR PRIMARY DOCTOR IMMEDIATELY. Addendum: 05/18/19 at 1450 by Brittany Malcolm RN Amended: Links added.
[2019-05-18] MEDS: rivaroxaban 20mg tablet PO SCH (16:21)
--- NOTE | 2019-05-18 18:08 | NUR ---
Problems reprioritized. Patient report given, questions answered & plan of care reviewed with MILADY Sotelo.
--- NOTE | 2019-05-18 18:32 | NUR ---
Patient in room PCU 3025. I have received report from MILADY Mcmanus and had the opportunity to ask questions and assume patient care.
[2019-05-18] MEDS: insulin glargine (Lantus) pen - multi-dose SQ SCH (21:00)
[2019-05-18] MEDS: QUEtiapine 25mg tablet PO SCH (21:26)
[2019-05-18] MEDS: lactobacillus rhamnosus 10,000 MMU CELLS/CAPSULE PO SCH (21:26)
[2019-05-19] MEDS: methylPREDNISolone sod succ 125mg/2ml vial IV SCH ×3 (00:28→16:47)
[2019-05-19] MEDS: cefepime 1GM/NS ADD-VANTAGE 100 ML IV SCH ×3 (00:29→16:47)
[2019-05-19 03:00] VITALS: BP 125/61
[2019-05-19 05:58] LABS: BASOPHILS % (AUTO) 0 % (0-1); EOSINOPHILS % (AUTO) 0 % (0-6); HEMATOCRIT 26.3 % (35.0-45.0); HEMOGLOBIN 8.4 g/dl (12.0-16.0); LYMPHOCYTES # (AUTO) 0.9 X10'3 (1.1-4.8); LYMPHOCYTES % (AUTO) 4.4 % (21-51); MEAN CORPUSCULAR HEMOGLOBIN 23.8 PG (27.0-31.0); MEAN CORPUSCULAR HGB CONC 31.8 g/dL (33.0-36.5); MEAN PLATELET VOLUME 6.9 FL (7.4-10.4); MONOCYTES # (AUTO) 0.5 X10'3 (0-0.9); MONOCYTES % (AUTO) 2.6 % (2-12); NEUTROPHILS # (AUTO) 18.8 X10'3 (1.8-7.7); PLATELET COUNT 461 X10'3 (140-440); RED BLOOD COUNT 3.51 X10'6 (4.20-5.60); RED CELL DISTRIBUTION WIDTH 17.9 % (11.5-14.5); WHITE BLOOD COUNT 20.2 X10'3 (4.5-11.0)
[2019-05-19 06:00] VITALS: BP 109/54
--- NOTE | 2019-05-19 06:00 | NUR ---
Problems reprioritized. Patient report given, questions answered & plan of care reviewed with Corbin HENNING.
--- NOTE | 2019-05-19 06:08 | NUR ---
Patient in room PCU 3025. I have received report from MILADY Sotelo and had the opportunity to ask questions and assume patient care.
[2019-05-19 06:16] LABS: ALANINE AMINOTRANSFERASE 12 U/L (12-78); ALBUMIN 1.9 G/DL (3.4-5.0); ALBUMIN/GLOBULIN RATIO 0.5 (1.1-1.5); ALKALINE PHOSPHATASE 79 IU/L (46-116); ANION GAP 8 (8-16); ASPARTATE AMINO TRANSFERASE 10 U/L (10-37); BILIRUBIN,TOTAL 0.2 MG/DL (0.1-1.0); BLOOD UREA NITROGEN 9 MG/DL (7-18); BUN/CREATININE RATIO 14.8 (6.6-38.0); CALCIUM 8.1 MG/DL (8.5-10.1); CHLORIDE 111 MMOL/L (99-107); CREATININE 0.61 MG/DL (0.40-0.90); GLUCOSE 147 MG/DL (70-104); SODIUM 144 MMOL/L (135-145); TOTAL CARBON DIOXIDE 24.9 MMOL/L (24-32); TOTAL PROTEIN 6.1 G/DL (6.4-8.2); eGFR > 90 ML/MIN
[2019-05-19] MEDS: normal saline 1000ml 1,000 ML IV SCH ×3 (06:31→22:25)
[2019-05-19] MEDS: K and/or MAG REPLACEMENT MC SCH (08:00)
[2019-05-19] MEDS: budesonide 0.5mg/2ml UD nebule IH SCH ×2 (08:02→19:16)
[2019-05-19] MEDS: carVEDilol 3.125mg tablet PO SCH ×2 (08:54→20:40)
[2019-05-19] MEDS: lactobacillus rhamnosus 10,000 MMU CELLS/CAPSULE PO SCH ×2 (08:54→20:36)
[2019-05-19] MEDS: loratadine 10mg tablet PO SCH ×2 (08:55→20:48)
[2019-05-19 11:00] VITALS: BP 117/58
[2019-05-19] MEDS: vancomycin/NS 1 GM ADD-VANTAGE 250 ML IV SCH (12:19)
[2019-05-19 15:00] VITALS: BP 115/40
[2019-05-19] MEDS: rivaroxaban 20mg tablet PO SCH (16:47)
[2019-05-19 18:00] VITALS: BP 132/57
--- NOTE | 2019-05-19 18:08 | NUR ---
Problems reprioritized. Patient report given, questions answered & plan of care reviewed with MILADY Iverson.
[2019-05-19] MEDS: QUEtiapine 25mg tablet PO SCH (20:41)
[2019-05-19] MEDS: insulin glargine (Lantus) pen - multi-dose SQ SCH (21:00)
[2019-05-19] MEDS ORDERED: mineral oil 133ml enema RC PRN (22:20)
[2019-05-19 23:00] VITALS: BP 107/55
[2019-05-20] MEDS: albuterol 2.5 MG/3 ML nebule NEB PRN ×2 (00:43→20:20)
--- NOTE | 2019-05-20 00:45 | NUR ---
Rapid Response was called for pt due to a sudden change in oxygenation, pt went from 2L O2 sat above 90% to 8L High-flow pt was saturating about 85%. Dr. Torrez, RT and BJ nurse came to see pt. NT suction, chest x-ray and continue troponin were ordered. Pt is now on post off vital signs with Radha flow canula at 8L, will continue to monitor pt.
[2019-05-20] MEDS: methylPREDNISolone sod succ 125mg/2ml vial IV SCH ×3 (01:58→16:34)
[2019-05-20] MEDS: cefepime 1GM/NS ADD-VANTAGE 100 ML IV SCH ×3 (01:58→16:33)
[2019-05-20 03:00] VITALS: BP 113/49
[2019-05-20 05:21] LABS: ALANINE AMINOTRANSFERASE 21 U/L (12-78); ALBUMIN 1.9 G/DL (3.4-5.0); ALBUMIN/GLOBULIN RATIO 0.5 (1.1-1.5); ALKALINE PHOSPHATASE 79 IU/L (46-116); ANION GAP 8 (8-16); ASPARTATE AMINO TRANSFERASE 16 U/L (10-37); BILIRUBIN,TOTAL 0.1 MG/DL (0.1-1.0); BLOOD UREA NITROGEN 18 MG/DL (7-18); BUN/CREATININE RATIO 29.5 (6.6-38.0); CALCIUM 8.2 MG/DL (8.5-10.1); CHLORIDE 111 MMOL/L (99-107); CREATININE 0.61 MG/DL (0.40-0.90); GLUCOSE 187 MG/DL (70-104); POTASSIUM 3.8 MMOL/L (3.5-5.1); SODIUM 144 MMOL/L (135-145); TOTAL CARBON DIOXIDE 25.2 MMOL/L (24-32); TOTAL PROTEIN 6.1 G/DL (6.4-8.2); eGFR > 90 ML/MIN
[2019-05-20 05:34] LABS: BASOPHILS % (AUTO) 0.1 % (0-1); EOSINOPHILS % (AUTO) 0 % (0-6); HEMOGLOBIN 7.7 g/dl (12.0-16.0); LYMPHOCYTES # (AUTO) 0.8 X10'3 (1.1-4.8); LYMPHOCYTES % (AUTO) 5.2 % (21-51); MEAN CORPUSCULAR VOLUME 75.1 FL (78-98); MEAN PLATELET VOLUME 6.9 FL (7.4-10.4); MONOCYTES # (AUTO) 0.5 X10'3 (0-0.9); MONOCYTES % (AUTO) 3.3 % (2-12); NEUTROPHILS # (AUTO) 14.9 X10'3 (1.8-7.7); NEUTROPHILS % (AUTO) 91.4 % (42-75); PLATELET COUNT 480 X10'3 (140-440); WHITE BLOOD COUNT 16.3 X10'3 (4.5-11.0)
[2019-05-20 06:00] VITALS: BP 117/59
--- NOTE | 2019-05-20 06:39 | NUR ---
Problems reprioritized. Patient report given, questions answered & plan of care reviewed with Hilda HENNING.
[2019-05-20] MEDS: loratadine 10mg tablet PO SCH ×2 (07:33→19:09)
[2019-05-20] MEDS: lactobacillus rhamnosus 10,000 MMU CELLS/CAPSULE PO SCH ×2 (07:33→19:07)
[2019-05-20] MEDS: carVEDilol 3.125mg tablet PO SCH ×2 (07:33→19:07)
[2019-05-20] MEDS: HYDROcodone/acetaminophen 10/325mg tab PO PRN ×2 (07:34→20:44)
[2019-05-20] MEDS: K and/or MAG REPLACEMENT MC SCH (07:34)
[2019-05-20] MEDS: budesonide 0.5mg/2ml UD nebule IH SCH ×2 (07:48→20:20)
--- NOTE | 2019-05-20 09:43 | NUR ---
PAGER ID: [phone] MESSAGE: [id number] Cyndee Kang: Daughter refused consent for CT w/ contrast, states it is too traumatic for her mother and does not believe the pros outweigh the cons even after i told her about the CXR, she will come to hospital. Thanks Hilda [phone]
--- NOTE | 2019-05-20 09:43 | NUR ---
Spoke to daughter to get consent for CT w/ contrast for abnormal cxr, daughter refuses and states it is too traumatic to her mother and does not belive the pros outweigh the cons of the procedure, Dr. Wyatt notified and will talk to daughter when she comes to unit. no new orders at this time.
[2019-05-20 11:00] VITALS: BP 123/85
--- NOTE | 2019-05-20 11:06 | NUR ---
PAGER ID: [phone] MESSAGE: [id number] Cyndee Kang: daughter is here and would like to speak with you. Thanks Hidla [phone]
[2019-05-20] MEDS ORDERED: VANCOMYCIN LEVEL IV ONE (11:30)
[2019-05-20] MEDS: normal saline 1000ml 1,000 ML IV SCH ×3 (11:51→22:33)
[2019-05-20] MEDS: vancomycin/NS 1 GM ADD-VANTAGE 250 ML IV SCH (12:26)
--- NOTE | 2019-05-20 12:30 | NUR ---
Dr. Wyatt explained reasoning for CT to daughter and daughter still does not want to proceed w/ CT, CT order has been cancelled
[2019-05-20 15:00] VITALS: BP 97/66
[2019-05-20] MEDS: rivaroxaban 20mg tablet PO SCH (16:34)
[2019-05-20 18:00] VITALS: BP 110/59
--- NOTE | 2019-05-20 18:15 | NUR ---
Patient in room PCU 3025. I have received report from Hilda HENNING and had the opportunity to ask questions and assume patient care.
--- NOTE | 2019-05-20 18:31 | NUR ---
Problems reprioritized. Patient report given, questions answered & plan of care reviewed with Zayra HENNING.
[2019-05-20] MEDS: insulin Lispro (HumaLOG) vial - multi-dose SQ SCH (19:05)
[2019-05-20] MEDS: QUEtiapine 25mg tablet PO SCH (20:44)
[2019-05-20] MEDS: insulin glargine (Lantus) pen - multi-dose SQ SCH (20:53)
[2019-05-20 22:00] VITALS: BP 100/49
[2019-05-20] MEDS: acetaminophen 325mg tablet PO PRN (23:21)
[2019-05-21] MEDS: cefepime 1GM/NS ADD-VANTAGE 100 ML IV SCH ×3 (00:05→16:58)
[2019-05-21] MEDS: methylPREDNISolone sod succ 125mg/2ml vial IV SCH ×2 (00:07→07:45)
[2019-05-21 03:00] VITALS: BP 123/53
[2019-05-21 06:00] VITALS: BP 134/69
--- NOTE | 2019-05-21 06:20 | NUR ---
Patient in room PCU 3025. I have received report from MILADY Iverson and had the opportunity to ask questions and assume patient care.
--- NOTE | 2019-05-21 06:27 | NUR ---
Problems reprioritized. Patient report given, questions answered & plan of care reviewed with John Velasquez.
[2019-05-21 06:41] LABS: BASOPHILS % (AUTO) 0.1 % (0-1); EOSINOPHILS % (AUTO) 0 % (0-6); HEMATOCRIT 28.3 % (35.0-45.0); HEMOGLOBIN 8.9 g/dl (12.0-16.0); LYMPHOCYTES # (AUTO) 1.6 X10'3 (1.1-4.8); LYMPHOCYTES % (AUTO) 10.4 % (21-51); MEAN CORPUSCULAR HEMOGLOBIN 23.9 PG (27.0-31.0); MEAN CORPUSCULAR HGB CONC 31.3 g/dL (33.0-36.5); MEAN CORPUSCULAR VOLUME 76.3 FL (78-98); MEAN PLATELET VOLUME 6.9 FL (7.4-10.4); MONOCYTES # (AUTO) 0.5 X10'3 (0-0.9); MONOCYTES % (AUTO) 3.3 % (2-12); NEUTROPHILS # (AUTO) 13.4 X10'3 (1.8-7.7); NEUTROPHILS % (AUTO) 86.2 % (42-75); PLATELET COUNT 617 X10'3 (140-440); RED BLOOD COUNT 3.71 X10'6 (4.20-5.60); WHITE BLOOD COUNT 15.5 X10'3 (4.5-11.0)
[2019-05-21 06:58] LABS: ALANINE AMINOTRANSFERASE 22 U/L (12-78); ALBUMIN 2.3 G/DL (3.4-5.0); ALBUMIN/GLOBULIN RATIO 0.5 (1.1-1.5); ALKALINE PHOSPHATASE 75 IU/L (46-116); ANION GAP 8 (8-16); ASPARTATE AMINO TRANSFERASE 11 U/L (10-37); BILIRUBIN,TOTAL 0.2 MG/DL (0.1-1.0); BLOOD UREA NITROGEN 18 MG/DL (7-18); BUN/CREATININE RATIO 26.1 (6.6-38.0); CALCIUM 8.7 MG/DL (8.5-10.1); CHLORIDE 113 MMOL/L (99-107); CREATININE 0.69 MG/DL (0.40-0.90); GLUCOSE 179 MG/DL (70-104); POTASSIUM 4.2 MMOL/L (3.5-5.1); SODIUM 145 MMOL/L (135-145); TOTAL CARBON DIOXIDE 23.9 MMOL/L (24-32); TOTAL PROTEIN 6.6 G/DL (6.4-8.2); eGFR 81 ML/MIN
[2019-05-21 07:32] LABS: PLATELET ESTIMATE INCREASED
[2019-05-21 07:33] LABS: ANISOCYTOSIS 1+; MICROCYTOSIS 1+; POLYCHROMASIA 1+
[2019-05-21] MEDS: carVEDilol 3.125mg tablet PO SCH ×2 (07:45→20:39)
[2019-05-21] MEDS: loratadine 10mg tablet PO SCH ×2 (07:45→20:40)
[2019-05-21] MEDS: lactobacillus rhamnosus 10,000 MMU CELLS/CAPSULE PO SCH ×2 (07:45→20:47)
[2019-05-21] MEDS: normal saline 1000ml 1,000 ML IV SCH (07:46)
[2019-05-21] MEDS: K and/or MAG REPLACEMENT MC SCH (08:00)
[2019-05-21] MEDS: albuterol 2.5 MG/3 ML nebule NEB PRN ×2 (08:18→20:07)
[2019-05-21] MEDS: budesonide 0.5mg/2ml UD nebule IH SCH ×2 (08:19→20:07)
[2019-05-21] MEDS: HYDROcodone/acetaminophen 10/325mg tab PO PRN (08:39)
[2019-05-21] MEDS: insulin Lispro (HumaLOG) vial - multi-dose SQ SCH ×2 (09:32→21:01)
[2019-05-21 11:00] VITALS: BP 133/74
--- NOTE | 2019-05-21 15:28 | NUR ---
Initial: Pt admit w/ chest pain DX sepsis r/t RLL PNA likely aspiration per MD note. SP approved heart healthy diet w/ supervision. FTT; per MD note since pt lives w/ daughter as caregiver but daughter works during days. Pt s/p rapid on 05/19 w/ mucous plug removed. PO 0-25% avg meals so far w/ some fluctuations. Glucerna BIDBD added to meals pending MD verification prior to sending on trays. Ensure puddings at lunch in order to meet protein needs given DX. Hx A1C 7.2 in March; ed not indicated at this time. LBM 05/20. Will monitor for additional protein needs. Rec: 1. continue heart healthy/carb controlled diet per SP/MD 2. Glucerna BIDBD pending MD verification prior to sending on trays 3. ensure pudding at lunches 4. weekly wts Addendum: 05/21/19 at [address] Amended: Links added.
[2019-05-21] MEDS: rivaroxaban 20mg tablet PO SCH ×2 (16:59→17:02)
[2019-05-21] MEDS ORDERED: NUT.TX.GLUC.INTOLER,LAC-FR,SOY (GLUCERNA) 237 ML PO SCH (17:30)
[2019-05-21 18:00] VITALS: BP 137/78
--- NOTE | 2019-05-21 18:00 | NUR ---
Patient in room PCU 3025. I have received report from Day Shift RN and had the opportunity to ask questions and assume patient care.
--- NOTE | 2019-05-21 18:30 | NUR ---
Orientee documentation: I have reviewed and agree with all interventions, assessments performed and documented by Helene HENNING. [place] Medication Administration: For this medication-pass time frame, all medication were reviewed, dispensed, administered and documented per hospital policy by Helene HENNING.
--- NOTE | 2019-05-21 18:34 | NUR ---
Problems reprioritized. Patient report given, questions answered & plan of care reviewed with Naina HENNING. Patient stable at transfer of care.
[2019-05-21] MEDS: methylPREDNISolone sod succ/PF 40mg inj. IV SCH ×2 (20:38→22:15)
[2019-05-21] MEDS: QUEtiapine 25mg tablet PO SCH (20:39)
[2019-05-21] MEDS: insulin glargine (Lantus) pen - multi-dose SQ SCH (21:11)
[2019-05-21 22:00] VITALS: BP 127/67
[2019-05-22] MEDS: cefepime 1GM/NS ADD-VANTAGE 100 ML IV SCH ×2 (00:31→08:28)
[2019-05-22 02:00] VITALS: BP 126/75
[2019-05-22] MEDS: albuterol 2.5 MG/3 ML nebule NEB PRN (04:01)
--- NOTE | 2019-05-22 04:15 | NUR ---
Patient reported "I can't breath"-notifed RT, proceeded to have patient on non-rebreather, increased oxygen to 15 lpm, will notify MD. O2 sats in 70's per o2 monitor. Rt responded, nasotrachial suctioning performed by RT. Patient tolerated Nasoendotrachial suctioning well, Sats improved , pink-tinged mucous plug removed by RT. Oxygen saturation increased to 96 %, maintaining sats on 2 L NC now. RT indicated she had this occur 05/20/19 early am as well. Encouraging TCDB and suctioning to help move secretions.
[2019-05-22 06:00] VITALS: BP 124/45
--- NOTE | 2019-05-22 06:00 | NUR ---
Problems reprioritized. Patient report given, questions answered & plan of care reviewed with Roseanne/Helene RN's.
[2019-05-22 06:04] LABS: BASOPHILS % (AUTO) 0.1 % (0-1); EOSINOPHILS % (AUTO) 0 % (0-6); HEMATOCRIT 26.6 % (35.0-45.0); HEMOGLOBIN 8.4 g/dl (12.0-16.0); LYMPHOCYTES # (AUTO) 0.8 X10'3 (1.1-4.8); LYMPHOCYTES % (AUTO) 5.5 % (21-51); MEAN CORPUSCULAR HEMOGLOBIN 23.8 PG (27.0-31.0); MEAN CORPUSCULAR HGB CONC 31.5 g/dL (33.0-36.5); MEAN CORPUSCULAR VOLUME 75.6 FL (78-98); MEAN PLATELET VOLUME 6.9 FL (7.4-10.4); MONOCYTES # (AUTO) 0.8 X10'3 (0-0.9); MONOCYTES % (AUTO) 5.9 % (2-12); NEUTROPHILS # (AUTO) 12.5 X10'3 (1.8-7.7); NEUTROPHILS % (AUTO) 88.5 % (42-75); PLATELET COUNT 512 X10'3 (140-440); RED BLOOD COUNT 3.52 X10'6 (4.20-5.60); RED CELL DISTRIBUTION WIDTH 17.6 % (11.5-14.5); WHITE BLOOD COUNT 14.2 X10'3 (4.5-11.0)
--- NOTE | 2019-05-22 06:14 | NUR ---
Patient in room PCU 3025. I have received report from Naina HENNING and had the opportunity to ask questions and assume patient care.
[2019-05-22 06:18] LABS: ALANINE AMINOTRANSFERASE 46 U/L (12-78); ALBUMIN 2.2 G/DL (3.4-5.0); ALBUMIN/GLOBULIN RATIO 0.6 (1.1-1.5); ALKALINE PHOSPHATASE 64 IU/L (46-116); ANION GAP 6 (8-16); ASPARTATE AMINO TRANSFERASE 49 U/L (10-37); BILIRUBIN,TOTAL 0.2 MG/DL (0.1-1.0); BLOOD UREA NITROGEN 15 MG/DL (7-18); CALCIUM 8.2 MG/DL (8.5-10.1); CHLORIDE 115 MMOL/L (99-107); GLUCOSE 176 MG/DL (70-104); MAGNESIUM 1.9 MG/DL (1.5-2.4); POTASSIUM 3.6 MMOL/L (3.5-5.1); SODIUM 148 MMOL/L (135-145); TOTAL CARBON DIOXIDE 27.1 MMOL/L (24-32); TOTAL PROTEIN 6.1 G/DL (6.4-8.2); eGFR > 90 ML/MIN
[2019-05-22] MEDS: budesonide 0.5mg/2ml UD nebule IH SCH (07:40)
[2019-05-22] MEDS: lactobacillus rhamnosus 10,000 MMU CELLS/CAPSULE PO SCH (08:00)
[2019-05-22] MEDS: K and/or MAG REPLACEMENT MC SCH (08:00)
[2019-05-22] MEDS: loratadine 10mg tablet PO SCH (08:00)
[2019-05-22] MEDS: methylPREDNISolone sod succ/PF 40mg inj. IV SCH (08:29)
[2019-05-22] MEDS: HYDROcodone/acetaminophen 10/325mg tab PO PRN (09:09)
[2019-05-22] MEDS: carVEDilol 3.125mg tablet PO SCH (09:10)
--- NOTE | 2019-05-22 09:48 | NUR ---
Unable to administer insulin due to Pharmacy delay. Pharmacy notified that insulin needed and has not been delivered.
[2019-05-22 09:50] LABS: PLATELET ESTIMATE INCREASED
[2019-05-22 09:51] LABS: ANISOCYTOSIS 1+; MICROCYTOSIS 1+
[2019-05-22 11:00] VITALS: BP 122/77
[2019-05-22] MEDS ORDERED: AMOX250S63 PO (11:55)
--- NOTE | 2019-05-22 14:37 | NUR ---
Patient stable for discharge per MD orders. All discharge instructions reviewed with patient and patient's daughter and all questions answered. New prescriptions called into patient's preferred pharmacy. PIV and shelter monitor discontinued. Belongings collected and sent home with patient. Patient left in private vehicle with daughter. Patient wheeled to lobby by primary RN.
[2019-05-24] MEDS ORDERED: VANCOMYCIN LEVEL IV ONE (11:30)
== END 2019-05-22 14:37 | disposition home health service (06) | DRG 871 ==
LOC: ER 06:48 → ED HOLD 10:36 → PCU 3S 12:11
PROVIDERS: ADMIT Family Medicine; ATTEND Family Medicine
DX: A41.9 Sepsis, unspecified organism (principal); J69.0 Pneumonitis due to inhalation of food and vomit; G93.41 Metabolic encephalopathy; E11.9 Type 2 diabetes mellitus without complications; F03.90 Unspecified dementia, unspecified severity, without behavioral disturbance, psychotic disturbance, mood disturbance, and anxiety; I48.91 Unspecified atrial fibrillation; I50.9 Heart failure, unspecified; J43.9 Emphysema, unspecified; G89.29 Other chronic pain; Z60.2 Problems related to living alone; R62.7 Adult failure to thrive; E87.6 Hypokalemia; Z66 Do not resuscitate; Z83.3 Family history of diabetes mellitus; Z87.01 Personal history of pneumonia (recurrent); Z88.6 Allergy status to analgesic agent; Z87.891 Personal history of nicotine dependence; Z90.49 Acquired absence of other specified parts of digestive tract; Z90.710 Acquired absence of both cervix and uterus; Z99.81 Dependence on supplemental oxygen; Z79.82 Long term (current) use of aspirin; Z68.24 Body mass index [BMI] 24.0-24.9, adult
CPT/HCPCS: 36415; 71045; 80053; 80202; 81001; 82948; 83605; 83735; 83880; 84132; 84145; 84484; 85025; 85610; 85730; 87040; 87070; 92508; 92616; 93005; 93306; 94640; 94760; 96365; 96375; 97110; 97116; 97162; 97530; 99285; G0378; J0692; J0696; J1160; J1815; J1956; J2405; J2920; J2930; J3370; J3490; J7030; J7626

== ENCOUNTER 2019-05-27 17:15 | Inpatient (IN) | payer MEDICARE, MEDICAID ==
[2019-05-27] VITALS (9 sets, daily range): BP systolic 79–123; BP diastolic 35–75
[~2019-05-27] VITALS: Ht 167.6 cm; Wt 63.6 kg
[~2019-05-27 17:15] MED LIST changes: +AMOX250S63 PO; -CARV6.253 PO; +LORA5TAB9 PO; +QUET25TA PO; -QUET25TA34 PO
[2019-05-27] MEDS ORDERED: diltiazem-D5W 125mg/125ml 125 ML IV SCH ×2 (17:35→20:25)
[2019-05-27] MEDS ORDERED: normal saline 1000ML IV soln IVB ONE (17:35)
[2019-05-27] MEDS ORDERED: diltiazem 5mg/ml 5ml inj. IV ONE ×2 (17:35→18:55)
[2019-05-27 17:42] LABS: BASOPHILS # (AUTO) 0.1 X10'3 (0-0.2); BASOPHILS % (AUTO) 0.6 % (0-1); EOSINOPHILS # (AUTO) 0.1 X10'3 (0-0.9); EOSINOPHILS % (AUTO) 0.6 % (0-6); HEMATOCRIT 30.9 % (35.0-45.0); LYMPHOCYTES # (AUTO) 2.7 X10'3 (1.1-4.8); LYMPHOCYTES % (AUTO) 11.1 % (21-51); MEAN CORPUSCULAR HGB CONC 32.2 g/dL (33.0-36.5); MEAN CORPUSCULAR VOLUME 74.5 FL (78-98); MEAN PLATELET VOLUME 7.3 FL (7.4-10.4); MONOCYTES # (AUTO) 2.4 X10'3 (0-0.9); MONOCYTES % (AUTO) 9.9 % (2-12); NEUTROPHILS % (AUTO) 77.8 % (42-75); PLATELET COUNT 455 X10'3 (140-440); RED BLOOD COUNT 4.15 X10'6 (4.20-5.60); WHITE BLOOD COUNT 24.4 X10'3 (4.5-11.0)
[2019-05-27] MEDS: diltiazem-NS 100mg/100ml 100 ML IV SCH ×3 (17:43→20:31)
[2019-05-27 17:53] LABS: PARTIAL THROMBOPLASTIN TIME 28 SECONDS (22-32)
[2019-05-27 18:01] LABS: ALANINE AMINOTRANSFERASE 18 U/L (12-78); ALBUMIN 2.8 G/DL (3.4-5.0); ALBUMIN/GLOBULIN RATIO 0.7 (1.1-1.5); ALKALINE PHOSPHATASE 72 IU/L (46-116); ANION GAP 6 (8-16); ASPARTATE AMINO TRANSFERASE 9 U/L (10-37); BILIRUBIN,TOTAL 0.4 MG/DL (0.1-1.0); BLOOD UREA NITROGEN 8 MG/DL (7-18); BUN/CREATININE RATIO 11.3 (6.6-38.0); CALCIUM 8.6 MG/DL (8.5-10.1); CHLORIDE 98 MMOL/L (99-107); CREATININE 0.71 MG/DL (0.40-0.90); GLUCOSE 153 MG/DL (70-104); SODIUM 142 MMOL/L (135-145); TOTAL CARBON DIOXIDE 38.3 MMOL/L (24-32); TOTAL PROTEIN 6.7 G/DL (6.4-8.2); eGFR 78 ML/MIN
[2019-05-27 18:04] LABS: POTASSIUM 2.4 MMOL/L (3.5-5.1)
[2019-05-27] MEDS ORDERED: potassium Cl 20 mEq SR tablet PO STA (18:07)
--- NOTE | 2019-05-27 18:08 | NUR ---
increased cardizem to 10mg/hour.
[2019-05-27 18:13] LABS: CLARITY,URINE CLEAR (Clear); COLOR,URINE YELLOW (Yellow); GLUCOSE, URINE NEGATIVE (Neg); KETONES,URINE NEGATIVE (Neg); LEUKOCYTE ESTERASE ,URINE NEGATIVE (Neg); NITRITES, URINE NEGATIVE (Neg); OCCULT BLOOD,URINE NEGATIVE (Neg); PROTEIN,URINE NEGATIVE (Neg); UROBILINOGEN,URINE 0.2 E.U/dL (0.2-1.0)
[2019-05-27 18:14] LABS: TOTAL CELLS COUNTED 100
[2019-05-27 18:17] LABS: ANISOCYTOSIS 1+; MICROCYTOSIS 1+; PLATELET ESTIMATE NORMAL
--- NOTE | 2019-05-27 18:17 | NUR ---
daughter at bedside.
[2019-05-27 18:19] LABS: HYPOCHROMASIA 1+
[2019-05-27 18:20] LABS: UA COLLECTION TYPE FOLEY CATH
--- NOTE | 2019-05-27 18:22 | NUR ---
patient turned and repositioned for comfort,pillow placed on left side,daughter at bedside.
[2019-05-27] MEDS: potassium Cl 10 mEq/100mL bag IV SCH ×2 (18:23→19:44)
[2019-05-27] MEDS ORDERED: vancomycin/NS 1 GM ADD-VANTAGE 250 ML IV ONE (18:35)
[2019-05-27] MEDS ORDERED: levoFLOXACIN-Levaquin 750MG/D5 150 ML IV ONE (18:35)
--- NOTE | 2019-05-27 18:41 | NUR ---
VERIFIED ON MICROMEDEX AND SOULEYMANE RN THAT POTASSIUM CHLORIDE AND VANCOMYCIN ARE IV COMPATIBLE. ALSO, LEVOFLOXACIN AND DILTIAZEM ARE IV COMPATIBLE.
[2019-05-27] MEDS ORDERED: normal saline 1000ML IV soln IV ONE (18:45)
--- NOTE | 2019-05-27 18:56 | NUR ---
ASSISTED PT TO BEDSIDE COMMODE WITH SOULEYMANE HENNING. LORI CARE PROVIDED AND PT PLACED BACK IN BED COMFORTABLY.
[2019-05-27] MEDS ORDERED: CARV-49 PO (19:34)
[2019-05-27] MEDS ORDERED: QUET25TA PO (19:34)
--- NOTE | 2019-05-27 20:14 | NUR ---
RECEIVED VERBAL ORDER FROM DR ELIZABETH FOR CALCIUM GLUCONATE 2G IV PUSH, CALLED PHARMACY AND THEY SAID IT'S SAFER TO HANG DRIP. MADE AWARE.
[2019-05-27] MEDS ORDERED: calcium gluconate inj. 2 GM in normal saline 100ml IV soln 80 ML IV ONE (20:15)
[2019-05-27] MEDS ORDERED: potassium Cl 20 mEq SR tablet PO PRN (20:25)
[2019-05-27] MEDS ORDERED: magnesium 2GM in 50ml NS 50 ML IV PRN (20:25)
[2019-05-27] MEDS ORDERED: mag hydrox/Alum hydrox/simeth 30ml oral suspension PO PRN (20:25)
[2019-05-27] MEDS ORDERED: insulin Lispro (HumaLOG) vial - multi-dose SQ SCH (20:25)
[2019-05-27] MEDS ORDERED: magnesium Cl slow-release 64mg tablet PO PRN (20:25)
[2019-05-27] MEDS ORDERED: magnesium 4gm in 100ml NS 100 ML IV PRN (20:25)
[2019-05-27] MEDS ORDERED: glucagon, human recombinant 1mg kit SUBCUT PRN (20:25)
[2019-05-27] MEDS ORDERED: magnesium 2GM in 50ml NS 50 ML IV ONE (20:25)
[2019-05-27] MEDS ORDERED: acetaminophen 325mg tablet PO PRN ×2 (20:25)
[2019-05-27] MEDS ORDERED: dextrose 50%-water 50ml dispensing syringe IV PRN ×2 (20:25)
[2019-05-27] MEDS ORDERED: magnesium hydroxide 30ml (MOM) UD suspension PO PRN (20:25)
[2019-05-27] MEDS ORDERED: potassium CL 10mEq/100ml bag 100 ML IV PRN ×2 (20:25)
[2019-05-27] MEDS ORDERED: ondansetron/PF 4mg/2ml inj IV PRN (20:25)
[2019-05-27] MEDS ORDERED: MESSAGE TO PHARMACY PO ONE (20:25)
[2019-05-27] MEDS ORDERED: dextrose ORAL solution 15 GM/59 ML bottle PO PRN ×2 (20:25)
[2019-05-27] MEDS: normal saline 1000ml 1,000 ML IV SCH (20:39)
[2019-05-27] MEDS ORDERED: albuterol 2.5 MG/3 ML nebule NEB PRN ×2 (20:40→21:00)
[2019-05-27] MEDS: insulin glargine (Lantus) pen - multi-dose SQ SCH (21:00)
--- NOTE | 2019-05-27 21:00 | NUR ---
Patient in room PCU 3025. I have received report from Taylor HENNING from ER before the patient came up to the unit, had the opportunity to ask questions and assume patient care.
[2019-05-27 21:09] LABS: HEMOGLOBIN A1C 6.1 % (4.5-6.2)
[2019-05-27 21:41] LABS: MAGNESIUM 1.3 MG/DL (1.5-2.4)
[2019-05-27] MEDS: QUEtiapine 25mg tablet PO SCH (22:10)
[2019-05-27 22:50] LABS: MAGNESIUM 1.2 MG/DL (1.5-2.4)
[2019-05-27 23:01] LABS: POTASSIUM 2.8 MMOL/L (3.5-5.1)
[2019-05-27] MEDS: potassium Cl 20 mEq SR tablet PO PRN (23:21)
[2019-05-27] MEDS ORDERED: digoxin 250mcg/ml 2ml ampule IV ONE (23:35)
[2019-05-28] VITALS (18 sets, daily range): BP systolic 59–121; BP diastolic 33–65
[2019-05-28] MEDS: diltiazem-NS 100mg/100ml 100 ML IV SCH (00:10)
--- NOTE | 2019-05-28 00:34 | NUR ---
Cardizem 10mg to 5mg After the calcium gluconate was infused, patient was on cardizem drip at 10mg. At 2300 the cardizem drip was paused after blood pressure dropped to SBP of 90s and 80s, MD Villatoro was notified. Orders from MD Villatoro: Digoxin 250 mcg IV once, Cardizem drip to change to 5mg. Patient is now perfusing with a map of over 60 again after Digoxin, will continue to monitor.
--- NOTE | 2019-05-28 02:04 | NUR ---
Low Blood pressure From 0015 to 0100, Patient had blood pressures below 80 SBP consistently for 45 minutes, patient had no signs of distress or dizziness. MD Villatoro notified and order for 500 cc bolus was given and to continue Cardizem at 5mg/hr. After bolus treatment SBP is over 100. Will continue to monitor.
[2019-05-28] MEDS: potassium Cl 20 mEq SR tablet PO PRN ×2 (03:25→09:30)
--- NOTE | 2019-05-28 05:23 | NUR ---
Bladder retention Patient was bladder scanned before voiding, 704 ml was the volume, however the patient had only voided 200 ml after. Will continue to monitor and pass on to day shift nurse for possible MD order for regular bladder scanning.
[2019-05-28 05:31] LABS: BASOPHILS % (AUTO) 0.2 % (0-1); EOSINOPHILS # (AUTO) 0.3 X10'3 (0-0.9); HEMATOCRIT 26.2 % (35.0-45.0); HEMOGLOBIN 8.5 g/dl (12.0-16.0); LYMPHOCYTES # (AUTO) 2.2 X10'3 (1.1-4.8); LYMPHOCYTES % (AUTO) 15.3 % (21-51); MEAN CORPUSCULAR HEMOGLOBIN 24.4 PG (27.0-31.0); MEAN CORPUSCULAR HGB CONC 32.6 g/dL (33.0-36.5); MEAN CORPUSCULAR VOLUME 74.9 FL (78-98); MEAN PLATELET VOLUME 7.5 FL (7.4-10.4); MONOCYTES # (AUTO) 1.7 X10'3 (0-0.9); NEUTROPHILS # (AUTO) 9.9 X10'3 (1.8-7.7); NEUTROPHILS % (AUTO) 70.5 % (42-75); PLATELET COUNT 359 X10'3 (140-440); RED CELL DISTRIBUTION WIDTH 18.3 % (11.5-14.5); WHITE BLOOD COUNT 14.1 X10'3 (4.5-11.0)
[2019-05-28 05:47] LABS: ALBUMIN 2.1 G/DL (3.4-5.0); ANION GAP 0 (8-16); BLOOD UREA NITROGEN 5 MG/DL (7-18); BUN/CREATININE RATIO 9.3 (6.6-38.0); CALCIUM 8.6 MG/DL (8.5-10.1); CHLORIDE 104 MMOL/L (99-107); CREATININE 0.54 MG/DL (0.40-0.90); GLUCOSE 100 MG/DL (70-104); MAGNESIUM 1.7 MG/DL (1.5-2.4); SODIUM 143 MMOL/L (135-145); TOTAL CARBON DIOXIDE 38.7 MMOL/L (24-32); eGFR > 90 ML/MIN
--- NOTE | 2019-05-28 06:42 | NUR ---
Patient in room PCU 3025. I have received report from Divine HENNING and had the opportunity to ask questions and assume patient care. Patient asleep in bed. Cardizem gtt @ 5 mL/hour. In no acute distress.
--- NOTE | 2019-05-28 06:42 | NUR ---
Problems reprioritized. Patient report given, questions answered & plan of care reviewed with Velma HENNING.
[2019-05-28] MEDS: K and/or MAG REPLACEMENT MC SCH (08:00)
[2019-05-28] MEDS ORDERED: ARFORMOTEROL TARTRATE IH SCH (08:00)
[2019-05-28] MEDS: loratadine 10mg tablet PO SCH (09:28)
[2019-05-28] MEDS: spironolactone 50 MG tablet PO SCH (09:29)
[2019-05-28] MEDS: carVEDilol 3.125mg tablet PO SCH ×2 (09:30→19:21)
--- NOTE | 2019-05-28 10:45 | NUR ---
Pt O2 saturation 100% on 4L, pt showing no signs of distress. Titrated O2 to 1L, satting 99% and will be working with physical therapy shortly. Notified telephone coin box collector of pt's O2 settings and to please let RN know if O2 sat maintains or drops drastically due to working with PT. Will titrate patient off O2 if able to maintain elevated O2 saturation.
[2019-05-28] MEDS: diltiazem SR 60mg capsule (twice daily) PO SCH ×2 (11:02→19:21)
[2019-05-28] MEDS ORDERED: albuterol 2.5 MG/3 ML nebule NEB PRN (11:55)
--- NOTE | 2019-05-28 15:14 | NUR ---
Paged Dr. Matos: PAGER ID: [phone] MESSAGE: RE: Cyndee Kang [id number]. Patient complains of pain to right wrist. Per family she may have fallen back into chair at home and caught arm. Arm is reddened as well. Would you like to order any imaging? Thank you. Velma [phone]
[2019-05-28] MEDS: normal saline 1000ml 1,000 ML IV SCH ×2 (15:16→22:59)
--- NOTE | 2019-05-28 15:41 | NUR ---
Per Dr. Matos: Limited view x-ray (R) wrist.
[2019-05-28] MEDS: rivaroxaban 20mg tablet PO SCH (17:55)
--- NOTE | 2019-05-28 18:00 | NUR ---
Patient in room PCU 3025. I have received report from Velma HENNING and had the opportunity to ask questions and assume patient care.
[2019-05-28] MEDS: HYDROcodone/acetaminophen 5mg/325mg tablet PO PRN (18:07)
--- NOTE | 2019-05-28 18:33 | NUR ---
Student documentation: I have reviewed and agree with all interventions, assessments performed and documented by Claudia HENNING. Student Medication Administration: For this medication-pass time frame, all medication were reviewed, dispensed, administered and documented per hospital policy by Claudia HENNING. Addendum: 05/28/19 at 1834 by Velma Christian RN Claudia DEE Addendum: 05/28/19 at 1835 by Velma Christian RN Claudia ARELLANO
--- NOTE | 2019-05-28 18:35 | NUR ---
Problems reprioritized. Patient report given, questions answered & plan of care reviewed with Divine HENNING. Patient stable at transfer of care.
[2019-05-28] MEDS: lactobacillus rhamnosus 10,000 MMU CELLS/CAPSULE PO SCH (19:22)
[2019-05-28] MEDS ORDERED: levoFLOXACIN-Levaquin 500mg/D5 100 ML IV SCH (20:00)
[2019-05-28] MEDS: QUEtiapine 25mg tablet PO SCH (20:07)
[2019-05-28] MEDS: insulin glargine (Lantus) pen - multi-dose SQ SCH (21:00)
--- NOTE | 2019-05-28 22:45 | NUR ---
Hypotension MD Villatoro notified about blood pressures being low as 96/35 and heart rate 66-72, patient is asymptomatic and feels fine. No new orders received, will continue to monitor.
[2019-05-29 02:00] VITALS: BP 103/36
[2019-05-29] MEDS: HYDROcodone/acetaminophen 10/325mg tab PO PRN ×2 (05:02→12:57)
[2019-05-29 05:07] LABS: BASOPHILS % (AUTO) 0.4 % (0-1); EOSINOPHILS # (AUTO) 0.4 X10'3 (0-0.9); EOSINOPHILS % (AUTO) 3.7 % (0-6); HEMATOCRIT 27.1 % (35.0-45.0); HEMOGLOBIN 8.5 g/dl (12.0-16.0); LYMPHOCYTES # (AUTO) 1.9 X10'3 (1.1-4.8); MEAN CORPUSCULAR HGB CONC 31.5 g/dL (33.0-36.5); MEAN CORPUSCULAR VOLUME 76.2 FL (78-98); MEAN PLATELET VOLUME 7.5 FL (7.4-10.4); MONOCYTES # (AUTO) 1.2 X10'3 (0-0.9); MONOCYTES % (AUTO) 10.3 % (2-12); NEUTROPHILS # (AUTO) 8.1 X10'3 (1.8-7.7); NEUTROPHILS % (AUTO) 69.6 % (42-75); PLATELET COUNT 361 X10'3 (140-440); RED BLOOD COUNT 3.55 X10'6 (4.20-5.60); WHITE BLOOD COUNT 11.6 X10'3 (4.5-11.0)
[2019-05-29 05:21] LABS: ALBUMIN 2.2 G/DL (3.4-5.0); ANION GAP 4 (8-16); BLOOD UREA NITROGEN 2 MG/DL (7-18); BUN/CREATININE RATIO 3.8 (6.6-38.0); CALCIUM 8.4 MG/DL (8.5-10.1); CHLORIDE 107 MMOL/L (99-107); CREATININE 0.53 MG/DL (0.40-0.90); GLUCOSE 84 MG/DL (70-104); MAGNESIUM 1.7 MG/DL (1.5-2.4); SODIUM 141 MMOL/L (135-145); TOTAL CARBON DIOXIDE 29.8 MMOL/L (24-32); eGFR > 90 ML/MIN
--- NOTE | 2019-05-29 06:00 | NUR ---
END NOC NOTE Patient has slept well tonight, has taken all medication, and able to help reposition 25%. [place] was given when patient stated her pain was 8/10 and very uncomfortable in bed.
--- NOTE | 2019-05-29 06:40 | NUR ---
Patient in room PCU 3025. I have received report from Divine HENNING and had the opportunity to ask questions and assume patient care. Patient awake in bed with no complaints at this time. All immediate needs met.
--- NOTE | 2019-05-29 06:41 | NUR ---
Problems reprioritized. Patient report given, questions answered & plan of care reviewed with Velma HENNING.
[2019-05-29 06:46] LABS: HYPOCHROMASIA 1+; PLATELET ESTIMATE NORMAL; POLYCHROMASIA 1+
[2019-05-29 06:47] LABS: ANISOCYTOSIS 2+; MICROCYTOSIS 1+
[2019-05-29 07:00] VITALS: BP 113/32
[2019-05-29] MEDS: furosemide 20MG tablet PO SCH (07:38)
[2019-05-29] MEDS: spironolactone 50 MG tablet PO SCH (07:38)
[2019-05-29] MEDS: lactobacillus rhamnosus 10,000 MMU CELLS/CAPSULE PO SCH ×2 (07:39→19:51)
[2019-05-29] MEDS: loratadine 10mg tablet PO SCH (07:39)
[2019-05-29] MEDS: carVEDilol 3.125mg tablet PO SCH ×2 (07:39→19:51)
[2019-05-29] MEDS: diltiazem SR 60mg capsule (twice daily) PO SCH ×2 (07:39→19:51)
[2019-05-29] MEDS: normal saline 1000ml 1,000 ML IV SCH (07:40)
[2019-05-29] MEDS: K and/or MAG REPLACEMENT MC SCH (08:00)
[2019-05-29 11:00] VITALS: BP 114/51
--- NOTE | 2019-05-29 13:22 | NUR ---
New orders from Dr. Matos: Ensure with meals. Discontinue AC/HS accucheck.
[2019-05-29 15:00] VITALS: BP 116/42
[2019-05-29] MEDS: rivaroxaban 20mg tablet PO SCH (16:50)
[2019-05-29 18:00] VITALS: BP 109/48
[2019-05-29] MEDS: lactose-reduced food (Ensure High Protein) 237ml bottle PO SCH (18:00)
--- NOTE | 2019-05-29 18:00 | NUR ---
Patient in room PCU 3025. I have received report from Velma HENNING and had the opportunity to ask questions and assume patient care.
--- NOTE | 2019-05-29 18:20 | NUR ---
Problems reprioritized. Patient report given, questions answered & plan of care reviewed with Divine . Patient stable at transfer of care
[2019-05-29] MEDS: QUEtiapine 25mg tablet PO SCH (20:00)
[2019-05-29 22:45] VITALS: BP 99/41
[2019-05-30 02:30] VITALS: BP 108/46
--- NOTE | 2019-05-30 05:17 | NUR ---
END NOC NOTE Patient was in recliner chair with Ugo mat for 10 hours, occasionally repositioning and standing patient up for better comfort in chair per patient's request. Patient has not been cooperative with some staff, however has been receptive to most of the care given tonight. Patient has now been in bed since 0400, was able to walk from the chair to bed with 3 staff members; Patient now is comfortable on her left side. Will continue to monitor.
[2019-05-30 05:18] LABS: BASOPHILS % (AUTO) 0.3 % (0-1); EOSINOPHILS # (AUTO) 0.5 X10'3 (0-0.9); EOSINOPHILS % (AUTO) 3.5 % (0-6); HEMATOCRIT 26.7 % (35.0-45.0); HEMOGLOBIN 8.6 g/dl (12.0-16.0); LYMPHOCYTES # (AUTO) 1.8 X10'3 (1.1-4.8); LYMPHOCYTES % (AUTO) 12.3 % (21-51); MEAN CORPUSCULAR HEMOGLOBIN 24.2 PG (27.0-31.0); MEAN CORPUSCULAR HGB CONC 32.2 g/dL (33.0-36.5); MEAN CORPUSCULAR VOLUME 75.2 FL (78-98); MEAN PLATELET VOLUME 7.7 FL (7.4-10.4); MONOCYTES # (AUTO) 1.2 X10'3 (0-0.9); MONOCYTES % (AUTO) 8.5 % (2-12); NEUTROPHILS # (AUTO) 10.9 X10'3 (1.8-7.7); NEUTROPHILS % (AUTO) 75.4 % (42-75); PLATELET COUNT 403 X10'3 (140-440); RED BLOOD COUNT 3.55 X10'6 (4.20-5.60); RED CELL DISTRIBUTION WIDTH 18.3 % (11.5-14.5); WHITE BLOOD COUNT 14.5 X10'3 (4.5-11.0)
[2019-05-30 05:23] LABS: ALBUMIN 2.3 G/DL (3.4-5.0); ANION GAP 6 (8-16); BLOOD UREA NITROGEN 2 MG/DL (7-18); BUN/CREATININE RATIO 3.6 (6.6-38.0); CALCIUM 8.9 MG/DL (8.5-10.1); CHLORIDE 104 MMOL/L (99-107); CREATININE 0.55 MG/DL (0.40-0.90); GLUCOSE 93 MG/DL (70-104); MAGNESIUM 1.6 MG/DL (1.5-2.4); POTASSIUM 3.7 MMOL/L (3.5-5.1); SODIUM 141 MMOL/L (135-145); TOTAL CARBON DIOXIDE 31.2 MMOL/L (24-32); eGFR > 90 ML/MIN
--- NOTE | 2019-05-30 06:33 | NUR ---
Problems reprioritized. Patient report given, questions answered & plan of care reviewed with Mary HENNING.
[2019-05-30 07:00] VITALS: BP 107/59
[2019-05-30] MEDS: K and/or MAG REPLACEMENT MC SCH (08:00)
[2019-05-30] MEDS: spironolactone 50 MG tablet PO SCH (08:43)
[2019-05-30] MEDS: furosemide 20MG tablet PO SCH (08:43)
[2019-05-30] MEDS: diltiazem SR 60mg capsule (twice daily) PO SCH ×2 (08:43→20:58)
[2019-05-30] MEDS: carVEDilol 3.125mg tablet PO SCH ×2 (08:43→20:53)
[2019-05-30] MEDS: loratadine 10mg tablet PO SCH (08:43)
[2019-05-30] MEDS: lactose-reduced food (Ensure High Protein) 237ml bottle PO SCH ×3 (08:44→18:00)
[2019-05-30] MEDS: lactobacillus rhamnosus 10,000 MMU CELLS/CAPSULE PO SCH ×2 (08:44→20:53)
[2019-05-30 11:00] VITALS: BP 112/39
[2019-05-30] MEDS: levoFLOXACIN 500mg tablet PO SCH (11:36)
[2019-05-30 15:00] VITALS: BP 114/44
[2019-05-30] MEDS: rivaroxaban 20mg tablet PO SCH (17:13)
[2019-05-30] MEDS: HYDROcodone/acetaminophen 5mg/325mg tablet PO PRN (17:15)
--- NOTE | 2019-05-30 18:00 | NUR ---
Patient in room PCU 3025. I have received report from Mary HENNING and had the opportunity to ask questions and assume patient care.
--- NOTE | 2019-05-30 18:32 | NUR ---
Problems reprioritized. Patient report given, questions answered & plan of care reviewed with MILADY Haskins.
--- NOTE | 2019-05-30 19:00 | NUR ---
Refused 1800 Blood pressure After myself and selene (aide) asked to get vital signs she refused. Patient is comfortable in recliner chair, no symptoms of distress, heart rate in the 70s, will continue to monitor.
[2019-05-30] MEDS: QUEtiapine 25mg tablet PO SCH (20:53)
[2019-05-30 22:00] VITALS: BP 105/38
[2019-05-31 02:00] VITALS: BP 115/52
--- NOTE | 2019-05-31 05:34 | NUR ---
Favorite Foods Sheba telephoned for an update at the beginning of the shift, I asked if there are any food preferences or favorite foods we can order for Cyndee so she can eat some of her meals. She listed these foods: Peanut butter with apples, fruit, cottage cheese with sliced tomatoes, hotdogs, stews/soups (broccoli cheese soup especially), cheese, ice cream.
--- NOTE | 2019-05-31 05:39 | NUR ---
END NOC NOTE Patient has slept in the recliner chair with geomat underneath all shift, able to stand patient up for ang care and reposition when able. Placed WIC for incontinence tonight. Will continue to monitor.
[2019-05-31 05:49] LABS: BASOPHILS # (AUTO) 0.1 X10'3 (0-0.2); BASOPHILS % (AUTO) 0.4 % (0-1); EOSINOPHILS # (AUTO) 0.4 X10'3 (0-0.9); EOSINOPHILS % (AUTO) 2.7 % (0-6); HEMATOCRIT 27.3 % (35.0-45.0); HEMOGLOBIN 8.7 g/dl (12.0-16.0); LYMPHOCYTES # (AUTO) 1.8 X10'3 (1.1-4.8); LYMPHOCYTES % (AUTO) 13.6 % (21-51); MEAN CORPUSCULAR HEMOGLOBIN 24.3 PG (27.0-31.0); MEAN CORPUSCULAR HGB CONC 31.8 g/dL (33.0-36.5); MEAN CORPUSCULAR VOLUME 76.2 FL (78-98); MEAN PLATELET VOLUME 7.4 FL (7.4-10.4); MONOCYTES # (AUTO) 1.4 X10'3 (0-0.9); MONOCYTES % (AUTO) 10.5 % (2-12); NEUTROPHILS # (AUTO) 9.4 X10'3 (1.8-7.7); NEUTROPHILS % (AUTO) 72.8 % (42-75); PLATELET COUNT 354 X10'3 (140-440); RED BLOOD COUNT 3.59 X10'6 (4.20-5.60); RED CELL DISTRIBUTION WIDTH 19.2 % (11.5-14.5)
[2019-05-31 06:03] LABS: ALBUMIN 2.2 G/DL (3.4-5.0); ANION GAP 7 (8-16); BLOOD UREA NITROGEN 2 MG/DL (7-18); CALCIUM 8.8 MG/DL (8.5-10.1); CHLORIDE 103 MMOL/L (99-107); GLUCOSE 74 MG/DL (70-104); MAGNESIUM 1.7 MG/DL (1.5-2.4); POTASSIUM 3.5 MMOL/L (3.5-5.1); SODIUM 141 MMOL/L (135-145); TOTAL CARBON DIOXIDE 31.2 MMOL/L (24-32); eGFR > 90 ML/MIN
--- NOTE | 2019-05-31 06:15 | NUR ---
Patient in room PCU 3025b. I have received report from MILADY Herrera and had the opportunity to ask questions and assume patient care.
--- NOTE | 2019-05-31 06:35 | NUR ---
Problems reprioritized. Patient report given, questions answered & plan of care reviewed with Mary HENNING.
--- NOTE | 2019-05-31 06:37 | NUR ---
Problems reprioritized. Patient report given, questions answered & plan of care reviewed with Mary HENNING.
[2019-05-31 06:51] LABS: PLATELET ESTIMATE NORMAL
[2019-05-31 06:52] LABS: ANISOCYTOSIS 2+; MICROCYTOSIS 1+
[2019-05-31 07:02] VITALS: BP 117/37
[2019-05-31] MEDS: lactose-reduced food (Ensure High Protein) 237ml bottle PO SCH ×3 (08:00→18:00)
[2019-05-31] MEDS: K and/or MAG REPLACEMENT MC SCH (08:00)
[2019-05-31] MEDS: spironolactone 50 MG tablet PO SCH (08:32)
[2019-05-31] MEDS: carVEDilol 3.125mg tablet PO SCH ×2 (08:32→21:39)
[2019-05-31] MEDS: loratadine 10mg tablet PO SCH (08:32)
[2019-05-31] MEDS: diltiazem SR 60mg capsule (twice daily) PO SCH ×2 (08:32→21:39)
[2019-05-31] MEDS: lactobacillus rhamnosus 10,000 MMU CELLS/CAPSULE PO SCH ×2 (08:32→21:38)
[2019-05-31] MEDS: furosemide 20MG tablet PO SCH (08:32)
[2019-05-31 11:00] VITALS: BP 122/46
[2019-05-31] MEDS: levoFLOXACIN 500mg tablet PO SCH (11:45)
[2019-05-31] MEDS: HYDROcodone/acetaminophen 5mg/325mg tablet PO PRN (11:46)
[2019-05-31 15:00] VITALS: BP 94/38
[2019-05-31] MEDS: rivaroxaban 20mg tablet PO SCH (17:16)
--- NOTE | 2019-05-31 18:15 | NUR ---
Problems reprioritized. Patient report given, questions answered & plan of care reviewed with Yosef, RN
--- NOTE | 2019-05-31 18:43 | NUR ---
Patient in room PCU 3025. I have received report from Mary Velez RN and had the opportunity to ask questions and assume patient care.
[2019-05-31 19:00] VITALS: BP 126/42
[2019-05-31] MEDS: QUEtiapine 25mg tablet PO SCH (21:39)
[2019-05-31] MEDS: normal saline 1000ml 1,000 ML IV SCH (22:12)
[2019-05-31 23:00] VITALS: BP 109/46
[2019-06-01 03:00] VITALS: BP 120/45
[2019-06-01 05:35] LABS: BASOPHILS # (AUTO) 0.1 X10'3 (0-0.2); BASOPHILS % (AUTO) 0.4 % (0-1); EOSINOPHILS # (AUTO) 0.2 X10'3 (0-0.9); EOSINOPHILS % (AUTO) 1.8 % (0-6); HEMATOCRIT 27.4 % (35.0-45.0); HEMOGLOBIN 8.8 g/dl (12.0-16.0); LYMPHOCYTES # (AUTO) 1.5 X10'3 (1.1-4.8); LYMPHOCYTES % (AUTO) 12.1 % (21-51); MEAN CORPUSCULAR HEMOGLOBIN 24.1 PG (27.0-31.0); MEAN CORPUSCULAR HGB CONC 32.2 g/dL (33.0-36.5); MEAN CORPUSCULAR VOLUME 74.8 FL (78-98); MEAN PLATELET VOLUME 7.4 FL (7.4-10.4); MONOCYTES # (AUTO) 1.2 X10'3 (0-0.9); MONOCYTES % (AUTO) 9.9 % (2-12); NEUTROPHILS # (AUTO) 9.5 X10'3 (1.8-7.7); NEUTROPHILS % (AUTO) 75.8 % (42-75); PLATELET COUNT 386 X10'3 (140-440); RED BLOOD COUNT 3.66 X10'6 (4.20-5.60); RED CELL DISTRIBUTION WIDTH 18.8 % (11.5-14.5); WHITE BLOOD COUNT 12.5 X10'3 (4.5-11.0)
[2019-06-01 05:51] LABS: ALBUMIN 2.2 G/DL (3.4-5.0); ANION GAP 6 (8-16); BLOOD UREA NITROGEN 3 MG/DL (7-18); BUN/CREATININE RATIO 5.5 (6.6-38.0); CHLORIDE 102 MMOL/L (99-107); CREATININE 0.55 MG/DL (0.40-0.90); GLUCOSE 93 MG/DL (70-104); MAGNESIUM 1.7 MG/DL (1.5-2.4); POTASSIUM 3.8 MMOL/L (3.5-5.1); SODIUM 139 MMOL/L (135-145); TOTAL CARBON DIOXIDE 30.8 MMOL/L (24-32); eGFR > 90 ML/MIN
[2019-06-01 06:00] VITALS: BP 112/39
--- NOTE | 2019-06-01 06:31 | NUR ---
Problems reprioritized. Patient report given, questions answered & plan of care reviewed with Ruby Aguilar RN.
[2019-06-01 06:58] LABS: ANISOCYTOSIS 2+; MICROCYTOSIS 1+; PLATELET ESTIMATE NORMAL; POLYCHROMASIA FEW
[2019-06-01 06:59] LABS: POIKILOCYTOSIS FEW
--- NOTE | 2019-06-01 07:01 | NUR ---
Patient in room PCU 3025. I have received report from MILADY Navas and had the opportunity to ask questions and assume patient care. Patient is currently resting in bed, bed locked and low, call light in reach, reports no needs, no acute distress, will continue to monitor.
[2019-06-01] MEDS: lactobacillus rhamnosus 10,000 MMU CELLS/CAPSULE PO SCH ×2 (07:46→19:50)
[2019-06-01] MEDS: loratadine 10mg tablet PO SCH (07:46)
[2019-06-01] MEDS: furosemide 20MG tablet PO SCH (07:47)
[2019-06-01] MEDS: spironolactone 50 MG tablet PO SCH (07:47)
[2019-06-01] MEDS: diltiazem SR 60mg capsule (twice daily) PO SCH ×2 (07:47→19:52)
[2019-06-01] MEDS: carVEDilol 3.125mg tablet PO SCH ×2 (07:47→19:52)
[2019-06-01] MEDS: K and/or MAG REPLACEMENT MC SCH (07:48)
[2019-06-01] MEDS: lactose-reduced food (Ensure High Protein) 237ml bottle PO SCH ×3 (08:00→18:00)
[2019-06-01] MEDS: levoFLOXACIN 500mg tablet PO SCH (11:25)
--- NOTE | 2019-06-01 11:54 | NUR ---
Problems reprioritized. Patient report given, questions answered & plan of care reviewed with SKYLA HENNING.
--- NOTE | 2019-06-01 15:29 | NUR ---
PRESSURE ULCER EDUCATION: DEFINITION: A pressure ulcer is an area of skin that breaks down when you stay in one position too long. The constant pressure against the skin reduces the blood flow to that area and the affected tissue dies. CAUSES: "Being bedridden or in a wheelchair "Fragile skin "Having a chronic condition, such as diabetes or vascular disease "Inability to move certain parts of your body without assistance "Older age "Incontinence of urine or stool SYMPTOMS: "A reddened area that DOES NOT turn white when pressed on - this can be the beginning of a pressure ulcer "A blister, deep sore or a crater - these can be advanced pressure ulcers FIRST AID: "Relieve the pressure on this area "Keep the area clean and dry "Call your primary doctor if you see any of the above symptoms "DO NOT massage the area "DO NOT use a donut shaped or ring shaped pillow- these actually interfere with the blood flow and cause complications PREVENTION: "Check for pressure ulcers everyday "Change position at least every two hours to relieve pressure "Use items that help relieve pressure- pillows, sheepskin, foam padding, and powders. "Keep skin clean and dry "Eat healthy well balanced meals "Exercise daily IF YOU SEE ANY OF THESE SYMPTOMS WHILE IN THE HOSPITAL - TELL YOUR NURSE IMMEDIATELY. IF YOU SEE ANY OF THESE SYMPTOMS WHILE AT HOME OR HAVE ANY QUESTIONS OR CONCERNS ABOUT PRESSURE ULCERS - CALL YOUR PRIMARY DOCTOR IMMEDIATELY. Addendum: 06/01/19 at 1529 by Sinai Nichols RN Amended: Links added.
--- NOTE | 2019-06-01 16:03 | NUR ---
Initial: Pt admit w/ RLL aspiration PNA per MD. SP/MD advanced to mechanical soft/grind all/thin/carb controlled. Pt hx dementia AOx2 agitated and combative per EMR. PO 0-25% avg meals past 5 days w/ 0% ensure high protein which was added. LBM 05/26; RD d/w RN regarding routine bowel care per MD approval. RN agrees but also reports pt believes she is being poisoned when meds given r/t ALOC which inhibits optimal care. ALOC likely causing low PO as well. Pt has mild weakness, no edema, and buttock IAD noted per WOC. Given mild weakness in addition to low PO hx past 5 days pt qualifies for non-severe malnutrition at this time; MD notified. Will continue to monitor. Rec: 1. liberalize to mechanical soft/grind/thin diet per MD/SP given low PO 2. ensure high protein TIDWM; encourage PO 3. routine bowel care; no BM since 05/26 4. weekly wts Addendum: 06/01/19 at [address] Amended: Links added.
[2019-06-01] MEDS: HYDROcodone/acetaminophen 10/325mg tab PO PRN (16:58)
[2019-06-01] MEDS: rivaroxaban 20mg tablet PO SCH (17:23)
--- NOTE | 2019-06-01 18:26 | NUR ---
Problems reprioritized. Patient report given, questions answered & plan of care reviewed with MILADY Esteban.
--- NOTE | 2019-06-01 18:44 | NUR ---
Patient in room PCU 3022c. I have received report from MILADY Beltran and had the opportunity to ask questions and assume patient care. Patient sitting in chair for bedside report and eating evening meal. 2L NC and 20 mL/hr NS infusing per provider order. Stable at this time. Will continue to monitor closely.
[2019-06-01 19:00] VITALS: BP 121/52
--- NOTE | 2019-06-01 20:13 | NUR ---
1757 reassessment of [place] 10 unable to be performed. Day nurse administered medication. Was not on floor until 1809. Patient continues to complain of severe pain. Next dose due in two hours and will tentatively administer at that time.
[2019-06-01] MEDS: QUEtiapine 25mg tablet PO SCH (20:53)
--- NOTE | 2019-06-01 23:00 | NUR ---
Patient refused 2300 vital signs. Educated patient on importance of monitoring VS q4h. Per structured cabling technician HR is stable at 86. Will continue to monitor closely.
--- NOTE | 2019-06-02 03:00 | NUR ---
Patient refused 0300 B/P. Will continue to monitor closely.
[2019-06-02 06:00] VITALS: BP 108/32
--- NOTE | 2019-06-02 06:12 | NUR ---
Problems reprioritized. Patient report given, questions answered & plan of care reviewed with MILADY Mcmanus.
--- NOTE | 2019-06-02 06:20 | NUR ---
Patient in room PCU 3025. I have received report from Carlito HENNING and had the opportunity to ask questions and assume patient care.
[2019-06-02] MEDS: spironolactone 50 MG tablet PO SCH (08:00)
[2019-06-02] MEDS: lactose-reduced food (Ensure High Protein) 237ml bottle PO SCH (08:00)
[2019-06-02] MEDS: furosemide 20MG tablet PO SCH (08:00)
[2019-06-02] MEDS: carVEDilol 3.125mg tablet PO SCH (08:03)
[2019-06-02] MEDS: loratadine 10mg tablet PO SCH (08:03)
[2019-06-02] MEDS: lactobacillus rhamnosus 10,000 MMU CELLS/CAPSULE PO SCH (08:03)
[2019-06-02] MEDS: levoFLOXACIN 500mg tablet PO SCH (10:00)
[2019-06-02] MEDS: diltiazem SR 60mg capsule (twice daily) PO SCH (10:00)
[2019-06-02 11:00] VITALS: BP 91/47
--- NOTE | 2019-06-02 11:46 | NUR ---
PAGER ID: [phone] MESSAGE: RE: Cyndee Kang, room: [facility]. [facility] will not take Pt until they have a bowel movement. Last BM was 05/26. [id number] Matos paged concerning Pts last BM and orders for bowel care.
[2019-06-02] MEDS ORDERED: bisacodyl 10mg suppository rectal RC STA (11:59)
[2019-06-02] MEDS ORDERED: lactulose 20gm/30ml cup PO SCH (12:00)
[2019-06-02] MEDS ORDERED: bisacodyl 10mg suppository rectal RC PRN (12:00)
--- NOTE | 2019-06-02 12:17 | NUR ---
Pt had large formed BM.
--- NOTE | 2019-06-02 13:40 | NUR ---
Pt DC'd to [facility]. IV removed and canula intact. Tele-box removed and returned to tele-tech. Pt stable upon DC and vitals WNL. Report called to Adri HENNING at [facility]. Pt's belongings gathered and sent with Pt. Pt wheeled down to lobby by [employer] team and loaded onto [email or web address] van, and then transfered to [facility].
== END 2019-06-02 13:40 | DRG 871 ==
LOC: ER 17:16 → ED HOLD 20:33 → PCU 3S 21:00
PROVIDERS: ADMIT Hospitalist; ATTEND Family Medicine
DX: A41.9 Sepsis, unspecified organism (principal); E43 Unspecified severe protein-calorie malnutrition; J18.9 Pneumonia, unspecified organism; I50.32 Chronic diastolic (congestive) heart failure; E11.9 Type 2 diabetes mellitus without complications; E87.6 Hypokalemia; F03.90 Unspecified dementia, unspecified severity, without behavioral disturbance, psychotic disturbance, mood disturbance, and anxiety; I11.0 Hypertensive heart disease with heart failure; G89.29 Other chronic pain; R06.03 Acute respiratory distress; L89.152 Pressure ulcer of sacral region, stage 2; I48.91 Unspecified atrial fibrillation; J43.9 Emphysema, unspecified; Z66 Do not resuscitate; Z79.899 Other long term (current) drug therapy; Z87.891 Personal history of nicotine dependence; Z90.49 Acquired absence of other specified parts of digestive tract; Z90.710 Acquired absence of both cervix and uterus; Z68.22 Body mass index [BMI] 22.0-22.9, adult; Z88.5 Allergy status to narcotic agent; Z83.3 Family history of diabetes mellitus; Z82.49 Family history of ischemic heart disease and other diseases of the circulatory system
CPT/HCPCS: 36415; 71045; 73100; 74230; 80048; 80053; 81003; 82948; 83036; 83605; 83735; 83880; 84132; 84145; 84484; 85025; 85610; 85730; 87040; 87081; 92508; 93005; 94640; 94760; 96365; 96368; 96376; 97110; 97116; 97162; 97530; 97535; 99285; G0378; J0610; J1160; J1815; J1956; J3370; J3475; J3480; J3490; J7030